=== PATIENT | male | born 1950 | race American Indian/Alaskan Native ===

== ENCOUNTER 2020-03-04 20:54 | Inpatient (IN) | payer OTHER, SELFPAY ==
[2020-03-04] MEDS ORDERED: SODIUM CHLORIDE 0.9% 500 ML 500 ML IV ONE (21:21)
[2020-03-04 22:00] LABS: Basophils % (Auto) 0.1 % (0.0-1.8); Eosinophils % (Auto) 0.2 % (0.0-4.3); Hematocrit 30.4 % (35.5-45.6); Hemoglobin 9.9 gm/dl (11.8-15.2); Lymphocytes # (Auto) 1.4 K/mm3 (1.2-5.4); Lymphocytes % (Auto) 18.6 % (13.4-35.0); Mean Corpuscular HGB Conc 33 % (32-34); Mean Corpuscular Volume 88 fl (84-94); Monocytes # (Auto) 0.3 K/mm3 (0.0-0.8); Monocytes % (Auto) 3.4 % (0.0-7.3); Platelet Count 342 K/mm3 (140-440); Red Blood Count 3.45 M/mm3 (3.65-5.03); Red Cell Distribution Width 16.8 % (13.2-15.2)
[2020-03-04 22:12] LABS: Alanine Aminotransferase 107 units/L (7-56); Albumin 2.1 g/dL (3.9-5); BUN/Creatinine Ratio 64; Blood Urea Nitrogen 51 mg/dL (9-20); Calcium 8.9 mg/dL (8.4-10.2); Hemolysis Index 4
[2020-03-04] MEDS ORDERED: SODIUM CHLORIDE 0.9% 1000 ML 1,000 ML IV ONE (22:18)
--- NOTE | 2020-03-04 22:23 | XRay Report ---
CHEST 1 VIEW 9:50 PM INDICATION / CLINICAL INFORMATION: Hypoxia and low O2 sats. COVID-19 positive. COMPARISON: None available. FINDINGS: SUPPORT DEVICES: None. HEART / MEDIASTINUM: The heart size and pulmonary vasculature are normal. LUNGS / PLEURA: There is mild patchy parenchymal disease in the left mid to lower lung. The lungs are hyperinflated. No pleural effusion. No pneumothorax. ADDITIONAL FINDINGS: The patient's left arm overlies the mid-upper chest. IMPRESSION: 1. Mild patchy parenchymal disease in the left lower lung is likely related to pneumonia. 2. Emphysema. Signer Name: Choco Brink MD Signed: 03/04/2020 10:18 PM Workstation Name: [id number]
[2020-03-04 22:27] LABS: C-Reactive Protein 28.2 mg/dL (0.00-1.30)
[2020-03-04] MEDS: cefTRIAXone/NS 2 GM/100 ML 2 GM/100 ML BAG IV SCH (22:31)
[2020-03-04] MEDS: AZITHROMYCIN 500 MG in SODIUM CHLORIDE 0.9% 250ML 250 ML IV SCH (22:31)
--- NOTE | 2020-03-04 22:32 | Emergency Department Report ---
- General Chief Complaint: Dyspnea/Respdistress Stated Complaint: COVID + LOW O2 Time Seen by Provider: 03/04/20 20:56 Source: EMS Mode of arrival: Stretcher Limitations: Physical Limitation - History of Present Illness Initial Comments: Patient is a 69-year-old F [place]itanian male with past medical history of CVA who is bedbound who is coming in for respiratory distress hypoxia. Patient had a O2 sat of 84% and was placed on nonrebreather. Patient is unable to give any significant history. Patient tested positive for COVID-19. Is unknown at this time when he tested positive. Report shows that his O2 saturation was 84% on room air prior to his arrival. - Related Data Allergies Allergy/AdvReac Type Severity Reaction Status Date / Time No Known Allergies Allergy Verified 03/04/20 22:08 ED Review of Systems ROS: Stated complaint: COVID + LOW O2 Other details as noted in HPI Comment: Unobtainable due to pts medical conditions ED Past Medical Hx - Past Medical History Previous Medical History?: Yes Hx CVA: Yes Additional medical history: NAZIA - Surgical History Additional Surgical History: NAZIA - Social History Smoking Status: Unknown if ever smoked ED Physical Exam - General Limitations: Altered Mental Status, Physical Limitation General appearance: alert - Head Head exam: Present: atraumatic, normocephalic - Eye Eye exam: Present: normal appearance - ENT ENT exam: Present: mucous membranes dry - Neck Neck exam: Present: normal inspection - Respiratory Respiratory exam: Present: respiratory distress (tachypnea), rhonchi. Absent: wheezes, rales - Cardiovascular Cardiovascular Exam: Present: regular rate, normal rhythm, normal heart sounds. Absent: systolic murmur, diastolic murmur, rubs, gallop - GI/Abdominal GI/Abdominal exam: Present: soft, normal bowel sounds. Absent: distended, tenderness, guarding, rebound - Rectal Rectal exam: Present: deferred - Extremities Exam Extremities exam: Present: normal inspection - Back Exam Back exam: Present: normal inspection - Neurological Exam Neurological exam: Present: altered, other (contracted secondary to CVA) - Psychiatric Psychiatric exam: Present: normal affect, normal mood - Skin Skin exam: Present: warm, dry, intact, normal color. Absent: rash ED Course Vital Signs 03/04/20 03/04/20 21:00 21:20 Temperature 99.5 F Pulse Rate 103 H Respiratory 22 Rate Blood Pressure 118/72 O2 Sat by Pulse 100 100 Oximetry ED Medical Decision Making - Lab Data Result diagrams: 03/04/20 21:37 03/04/20 21:37 Lab Results 03/04/20 03/04/20 03/04/20 Range/Units 21:37 21:37 21:37 WBC 7.4 (4.5-11.0) K/mm3 RBC 3.45 L (3.65-5.03) M/mm3 Hgb 9.9 L (11.8-15.2) gm/dl Hct 30.4 L (35.5-45.6) % MCV 88 (84-94) fl MCH 29 (28-32) pg MCHC 33 (32-34) % RDW 16.8 H (13.2-15.2) % Plt Count 342 (140-440) K/mm3 Lymph % (Auto) 18.6 (13.4-35.0) % Foster % (Auto) 3.4 (0.0-7.3) % Eos % (Auto) 0.2 (0.0-4.3) % Baso % (Auto) 0.1 (0.0-1.8) % Lymph # (Auto) 1.4 (1.2-5.4) K/mm3 Foster # (Auto) 0.3 (0.0-0.8) K/mm3 Eos # (Auto) 0.0 (0.0-0.4) K/mm3 Baso # (Auto) 0.0 (0.0-0.1) K/mm3 Seg Neutrophils % 77.7 H (40.0-70.0) % Seg Neutrophils # 5.7 (1.8-7.7) K/mm3 D-Dimer (0-234) ng/mlDDU Sodium 146 H (137-145) mmol/L Potassium 5.1 H (3.6-5.0) mmol/L Chloride 103.5 (98-107) mmol/L Carbon Dioxide 27 (22-30) mmol/L Anion Gap 21 mmol/L BUN 51 H (9-20) mg/dL Creatinine 0.8 (0.8-1.3) mg/dL Estimated GFR > 60 ml/min BUN/Creatinine Ratio 64 % Glucose 70 L (75-100) mg/dL Lactic Acid 5.20 H* (0.7-2.0) mmol/L Calcium 8.9 (8.4-10.2) mg/dL Total Bilirubin 0.30 (0.1-1.2) mg/dL AST 168 H (5-40) units/L ALT 107 H (7-56) units/L Alkaline Phosphatase 83 (35-129) units/L Lactate Dehydrogenase (91-180) units/L C-Reactive Protein (0.00-1.30) mg/dL Total Protein 7.8 (6.3-8.2) g/dL Albumin 2.1 L (3.9-5) g/dL Albumin/Globulin Ratio 0.4 % 03/04/20 03/04/20 Range/Units 21:37 21:37 WBC (4.5-11.0) K/mm3 RBC (3.65-5.03) M/mm3 Hgb (11.8-15.2) gm/dl Hct (35.5-45.6) % MCV (84-94) fl MCH (28-32) pg MCHC (32-34) % RDW (13.2-15.2) % Plt Count (140-440) K/mm3 Lymph % (Auto) (13.4-35.0) % Foster % (Auto) (0.0-7.3) % Eos % (Auto) (0.0-4.3) % Baso % (Auto) (0.0-1.8) % Lymph # (Auto) (1.2-5.4) K/mm3 Foster # (Auto) (0.0-0.8) K/mm3 Eos # (Auto) (0.0-0.4) K/mm3 Baso # (Auto) (0.0-0.1) K/mm3 Seg Neutrophils % (40.0-70.0) % Seg Neutrophils # (1.8-7.7) K/mm3 D-Dimer 1139.13 H (0-234) ng/mlDDU Sodium (137-145) mmol/L Potassium (3.6-5.0) mmol/L Chloride (98-107) mmol/L Carbon Dioxide (22-30) mmol/L Anion Gap mmol/L BUN (9-20) mg/dL Creatinine (0.8-1.3) mg/dL Estimated GFR ml/min BUN/Creatinine Ratio % Glucose 70 L (75-100) mg/dL Lactic Acid (0.7-2.0) mmol/L Calcium (8.4-10.2) mg/dL Total Bilirubin (0.1-1.2) mg/dL AST (5-40) units/L ALT (7-56) units/L Alkaline Phosphatase (35-129) units/L Lactate Dehydrogenase 990 H (91-180) units/L C-Reactive Protein 28.20 H (0.00-1.30) mg/dL Total Protein (6.3-8.2) g/dL Albumin (3.9-5) g/dL Albumin/Globulin Ratio % - Radiology Data CHEST 1 VIEW 9:50 PM INDICATION / CLINICAL INFORMATION: Hypoxia and low O2 sats. COVID-19 positive. COMPARISON: None available. FINDINGS: SUPPORT DEVICES: None. HEART / MEDIASTINUM: The heart size and pulmonary vasculature are normal. LUNGS / PLEURA: There is mild patchy parenchymal disease in the left mid to lower lung. The lungs are hyperinflated. No pleural effusion. No pneumothorax. ADDITIONAL FINDINGS: The patient's left arm overlies the mid-upper chest. IMPRESSION: 1. Mild patchy parenchymal disease in the left lower lung is likely related to pneumonia. 2. Emphysema. Signer Name: Choco Brink MD Signed: 03/04/2020 9:18 PM Workstation Name: [id number] - Medical Decision Making Patient is a 69-year-old gentleman who is presenting with worsening of his COVID-19 diagnosis. Chest x-ray shows he does have bilateral infiltrates consistent with COVID-19. He is LDH CRP above elevated significantly. Patient is tolerating nonrebreather well and is maintaining oxygen saturation in the upper 90s. Patient met sepsis protocol and was given antibiotics for pneumonia. Lactic acid was drawn. Lactic was greater than 4 and he was given 30 cc/kg bolus of normal saline. Blood pressure remained adequate. Patient to be admitted to the hospitalist service for further management. Critical care attestation.: If time is entered above; I have spent that time in minutes in the direct care of this critically ill patient, excluding procedure time. ED Disposition Clinical Impression: Hypoxia, COVID-19, Acute respiratory distress Bilateral pneumonia Qualifiers: Pneumonia type: due to unspecified organism Lung location: lower lobe of lung Qualified Code(s): J18.9 - Pneumonia, unspecified organism Disposition: DC-09 OP ADMIT IP TO THIS HOSP Is pt being admited?: Yes Does the pt Need Aspirin: No Condition: Stable Instructions: Bacterial Pneumonia (ED) Time of Disposition: 22:38
[2020-03-04] MEDS ORDERED: dexAMETHasone 20 MG/5 ML VIAL IV ONE (22:33)
[2020-03-04 23:42] LABS: Bacteria,Urine 1+ /HPF (Negative); Bilirubin,Urine NEG (Negative); Blood,Urine MOD (Negative); Color,Urine Amber (Yellow); Mucus,Urine FEW /HPF
[2020-03-04 23:43] LABS: RBC,Urine > 182.0 /HPF (0.0-6.0)
[2020-03-05] MEDS ORDERED: ACETAMINOPHEN 325 MG TAB PO PRN (00:16)
[2020-03-05] MEDS ORDERED: METOCLOPRAMIDE 10 MG/2 ML INJ IV PRN (00:16)
--- NOTE | 2020-03-05 00:25 | History and Physical Report ---
History of Present Illness Date of examination: 03/04/20 Date of admission: 03/04/20 23:38 Chief complaint: Respiratory distress History of present illness: 69-year-old male with past medical history of CVA who is bedbound brought into the emergency room today in respiratory distress. Patient is a resident of prison in [place]. Patient unable to give any history at this time. Most of the history was gotten from the ER staff. He was said to have tested positive for COVID-19 recently. Prior to arrival in the emergency room oxygen saturation was said to be about 84%. Work-up in the emergency room today chest x-ray shows : Mild patchy parenchymal disease in the left lower lung is likely related to pneumonia. Emphysema. Urinalysis also shows UTI. Patient commenced on empiric IV antibiotics and also placed on isolation precautions for COVID-19. Past History Past Medical History: stroke Past Surgical History: No surgical history Social history: no significant social history Family history: no significant family history Medications and Allergies Allergies Allergy/AdvReac Type Severity Reaction Status Date / Time No Known Allergies Allergy Verified 03/04/20 22:08 Home Medications Medication Instructions Recorded Confirmed Last Taken Type Acetaminophen [Tylenol] 650 mg FEEDTUBE Q4H PRN 03/05/20 03/05/20 Unknown History Apixaban [Eliquis] 5 mg FEEDTUBE BID 03/05/20 03/05/20 Unknown History Ascorbic Acid [Vitamin C] 500 mg FEEDTUBE DAILY 03/05/20 03/05/20 Unknown History Atorvastatin [Lipitor Tab] 40 mg FEEDTUBE QHS 03/05/20 03/05/20 Unknown History Calcium Carbonate [Calcium] 600 mg FEEDTUBE DAILY 03/05/20 03/05/20 Unknown History Collagenase (Nf) [Santyl (Nf)] 1 applic TP QHS 03/05/20 03/05/20 Unknown History Doxazosin [Cardura] 1 mg FEEDTUBE QHS 03/05/20 03/05/20 Unknown History Emollient Combination No.114 85 gm TP DAILY PRN 03/05/20 03/05/20 Unknown History [Eucerin Advanced Repair] Ferrous Sulfate [Ferrous Sulfate 220 mg FEEDTUBE DAILY 03/05/20 03/05/20 Unknown History 220 MG/5 ML] Lisinopril [Zestril] 5 mg FEEDTUBE DAILY 03/05/20 03/05/20 Unknown History Magnesium Oxide [Magnesium] 850 mg FEEDTUBE DAILY 03/05/20 03/05/20 Unknown History Metoprolol [Lopressor] 12.5 mg FEEDTUBE BID 03/05/20 03/05/20 Unknown History Mupirocin [Bactroban 2%] 1 applic TP QHS 03/05/20 03/05/20 Unknown History Omeprazole 20 mg FEEDTUBE DAILY 03/05/20 03/05/20 Unknown History traMADoL [Ultram] 50 mg FEEDTUBE Q6HR PRN 03/05/20 03/05/20 Unknown History Active Meds: Active Medications Ceftriaxone Sodium (Rocephin/Ns 2 Gm/100 Ml) 2 gm in 100 mls @ 200 mls/hr IV Q2 4H TANNER; Protocol Last Admin: 03/04/20 22:31 Dose: 200 mls/hr Documented by: Azithromycin 500 mg/ Sodium (Chloride) 250 mls @ 250 mls/hr IV Q24H TANNER; Protocol Last Admin: 03/04/20 22:31 Dose: 250 mls/hr Documented by: Review of Systems ROS unobtainable: due to mental status Exam - Constitutional Vitals: Temp Pulse Resp BP Pulse Ox 99.5 F 109 H 16 117/72 100 03/04/20 21:00 03/04/20 23:00 03/04/20 23:00 03/04/20 23:00 03/04/20 22:00 General appearance: Present: no acute distress, cachectic, other (Contracted) - EENT Eyes: Present: PERRL, EOM intact. Absent: scleral icterus ENT: hearing intact, clear oral mucosa, dentition normal - Neck Neck: Present: supple, normal ROM - Respiratory Respiratory effort: normal Respiratory: bilateral: diminished - Cardiovascular Rhythm: regular Heart Sounds: Present: S1 & S2. Absent: gallop, systolic murmur, diastolic murmur, rub - Extremities Extremities: no ischemia, pulses intact, pulses symmetrical, No edema, abnormal (Contracted) Peripheral Pulses: within normal limits - Abdominal General gastrointestinal: Present: soft, non-tender, non-distended, normal bowel sounds, other (Peg tube in place). Absent: mass - Integumentary Integumentary: Present: clear, warm, dry - Musculoskeletal Musculoskeletal: other (Contracted) - Psychiatric Psychiatric: cooperative - Neurologic Neurologic: CNII-XII intact Results - Labs CBC & Chem 7: 03/04/20 21:37 03/04/20 21:37 Labs: Abnormal lab results 03/04/20 03/04/20 03/04/20 Range/Units 21:37 21:37 21:37 RBC 3.45 L (3.65-5.03) M/mm3 Hgb 9.9 L (11.8-15.2) gm/dl Hct 30.4 L (35.5-45.6) % RDW 16.8 H (13.2-15.2) % Seg Neutrophils % 77.7 H (40.0-70.0) % D-Dimer (0-234) ng/mlDDU Sodium 146 H (137-145) mmol/L Potassium 5.1 H (3.6-5.0) mmol/L BUN 51 H (9-20) mg/dL Glucose 70 L (75-100) mg/dL Lactic Acid 5.20 H* (0.7-2.0) mmol/L Ferritin (30.0-300.0) ng/mL AST 168 H (5-40) units/L ALT 107 H (7-56) units/L Lactate Dehydrogenase (91-180) units/L C-Reactive Protein (0.00-1.30) mg/dL Albumin 2.1 L (3.9-5) g/dL Urine pH (5.0-7.0) Urine WBC (Auto) (0.0-6.0) /HPF 03/04/20 03/04/20 03/04/20 Range/Units 21:37 21:37 21:37 RBC (3.65-5.03) M/mm3 Hgb (11.8-15.2) gm/dl Hct (35.5-45.6) % RDW (13.2-15.2) % Seg Neutrophils % (40.0-70.0) % D-Dimer 1139.13 H (0-234) ng/mlDDU Sodium (137-145) mmol/L Potassium (3.6-5.0) mmol/L BUN (9-20) mg/dL Glucose 70 L (75-100) mg/dL Lactic Acid (0.7-2.0) mmol/L Ferritin 2614.0 H (30.0-300.0) ng/mL AST (5-40) units/L ALT (7-56) units/L Lactate Dehydrogenase 990 H (91-180) units/L C-Reactive Protein 28.20 H (0.00-1.30) mg/dL Albumin (3.9-5) g/dL Urine pH (5.0-7.0) Urine WBC (Auto) (0.0-6.0) /HPF 03/04/20 Range/Units 23:10 RBC (3.65-5.03) M/mm3 Hgb (11.8-15.2) gm/dl Hct (35.5-45.6) % RDW (13.2-15.2) % Seg Neutrophils % (40.0-70.0) % D-Dimer (0-234) ng/mlDDU Sodium (137-145) mmol/L Potassium (3.6-5.0) mmol/L BUN (9-20) mg/dL Glucose (75-100) mg/dL Lactic Acid (0.7-2.0) mmol/L Ferritin (30.0-300.0) ng/mL AST (5-40) units/L ALT (7-56) units/L Lactate Dehydrogenase (91-180) units/L C-Reactive Protein (0.00-1.30) mg/dL Albumin (3.9-5) g/dL Urine pH 8.0 H (5.0-7.0) Urine WBC (Auto) 154.0 H (0.0-6.0) /HPF Assessment and Plan - Patient Problems (1) Bilateral pneumonia Current Visit: Yes Status: Acute Qualifiers: Pneumonia type: due to unspecified organism Lung location: lower lobe of lung Qualified Code(s): J18.9 - Pneumonia, unspecified organism Plan to address problem: Patient placed on empiric IV antibiotics. We will await culture results. (2) Acute respiratory distress Current Visit: Yes Status: Acute Plan to address problem: Possibly secondary to the pneumonia. (3) COVID-19 Current Visit: Yes Status: Acute Plan to address problem: Patient placed on isolation precautions. We will place consult to infectious disease for evaluation. (4) UTI (urinary tract infection) Current Visit: Yes Status: Acute Plan to address problem: We will continue patient on empiric IV antibiotics. (5) DVT prophylaxis Current Visit: Yes Status: Acute Plan to address problem: Patient placed on subcutaneous heparin. (6) Full code status Current Visit: Yes Status: Acute
[2020-03-05] MEDS: MORPHINE 2 MG/1 ML INJ IV PRN ×2 (02:51→22:30)
[2020-03-05] MEDS: HEPARIN 5,000 UNIT/1 ML VIAL SUB-Q SCH ×3 (06:18→22:03)
--- NOTE | 2020-03-05 13:28 | Event Note ---
Date: 03/05/20 68-year-old male admitted with shortness of breath. As per records, patient was diagnosed with COVID-19 Patient found to have saturation of 84% in the ER and was placed on oxygen. Chest x-ray performed showed pneumonia at the bases Patient admitted for further evaluation. Plan Continue oxygen supplementation Continue antibiotics Start dexamethasone 6 mg IV daily Check procalcitonin Trend inflammatory markers-CRP, LDH, D-dimer and ferritin ID consulted COVID-19 test reordered Has elevated d-dimer. CTA chest ordered to rule out PE. Check us doppler LE Respiratory assess and treat protocol Pulmonology to be consulted pending above
[2020-03-05] MEDS: SODIUM CHLORIDE 0.9% 1000 ML 1,000 ML IV SCH (15:07)
[2020-03-05] MEDS: dexAMETHasone 4 MG/ML VIAL IV SCH (15:10)
[2020-03-05] MEDS: AZITHROMYCIN 500 MG in SODIUM CHLORIDE 0.9% 250ML 250 ML IV SCH (22:02)
[2020-03-05] MEDS: cefTRIAXone/NS 2 GM/100 ML 2 GM/100 ML BAG IV SCH (22:07)
[2020-03-06] MEDS: HEPARIN 5,000 UNIT/1 ML VIAL SUB-Q SCH ×3 (06:18→21:40)
[2020-03-06 06:57] LABS: Hematocrit 27.6 % (35.5-45.6); Hemoglobin 8.9 gm/dl (11.8-15.2); Lymphocytes # (Auto) 0.8 K/mm3 (1.2-5.4); Lymphocytes % (Auto) 10.8 % (13.4-35.0); Mean Corpuscular HGB Conc 32 % (32-34); Mean Corpuscular Volume 88 fl (84-94); Monocytes # (Auto) 0.3 K/mm3 (0.0-0.8); Monocytes % (Auto) 3.9 % (0.0-7.3); Platelet Count 388 K/mm3 (140-440); Red Blood Count 3.13 M/mm3 (3.65-5.03); Red Cell Distribution Width 17.1 % (13.2-15.2)
[2020-03-06 07:06] LABS: INR 1.58 (0.87-1.13)
[2020-03-06 07:15] LABS: BUN/Creatinine Ratio 69; Blood Urea Nitrogen 62 mg/dL (9-20); Calcium 8.5 mg/dL (8.4-10.2); Hemolysis Index 0
--- NOTE | 2020-03-06 13:02 | Progress Note ---
Assessment and Plan Assessment and plan: (1) Bilateral pneumonia Current Visit: Yes Status: Acute Qualifiers: Pneumonia type: due to unspecified organism Lung location: lower lobe of lung Qualified Code(s): J18.9 - Pneumonia, unspecified organism Plan to address problem: Antibiotics Steroids ID evaluation (2) Acute respiratory distress Current Visit: Yes Status: Acute Plan to address problem: Continue oxygen supplementation as needed (3) COVID-19 Current Visit: Yes Status: Acute Plan to address problem: Antibiotics Dexamethasone ID evaluation Oxygen supplementation as needed (4) UTI (urinary tract infection) Current Visit: Yes Status: Acute Plan to address problem: Antibiotics (5)Hypernatremia Current Visit: Yes Status: Acute Plan to address problem: Hypotonic solution Trend BMP Start tube feeds (5) Elevated D-dimer Current Visit: Yes Status: Acute Plan to address problem: Ultrasound lower extremity Doppler pending CTPE not performed as patient cannot give consent and there is no family available VQ scan ordered (5) DVT prophylaxis Current Visit: Yes Status: Acute Plan to address problem: Patient placed on subcutaneous heparin. (6) Full code status Current Visit: Yes Status: Acute History Interval history: Patient seen and examined at bedside this morning Respiratory therapy evaluated patient. Patient noted to have no hypoxia Labs reviewed-shows hyponatremia. Tube feeds resumed Hypotonic solution started Hospitalist Physical - Constitutional Vitals: Temp Pulse Resp BP Pulse Ox 97.9 F 106 H 16 130/91 95 03/06/20 04:07 03/06/20 04:07 03/06/20 04:07 03/05/20 20:51 03/06/20 04:07 General appearance: Present: no acute distress, cachectic, other (Contracted) - Neck Neck: Present: supple - Respiratory Respiratory: bilateral: diminished - Cardiovascular Heart Sounds: Present: S1 & S2 - Extremities Extremities: No edema - Abdominal General gastrointestinal: soft, non-tender, non-distended, normal bowel sounds, other (PEG tube in place) - Neurologic Neurologic: other (Awake and alert in person) Results - Labs CBC & Chem 7: 03/06/20 05:21 03/06/20 05:21 Labs: Laboratory Last Values WBC 7.5 K/mm3 (4.5-11.0) 03/06/20 05:21 RBC 3.13 M/mm3 (3.65-5.03) L 03/06/20 05:21 Hgb 8.9 gm/dl (11.8-15.2) L 03/06/20 05:21 Hct 27.6 % (35.5-45.6) L 03/06/20 05:21 MCV 88 fl (84-94) 03/06/20 05:21 MCH 28 pg (28-32) 03/06/20 05:21 MCHC 32 % (32-34) 03/06/20 05:21 RDW 17.1 % (13.2-15.2) H 03/06/20 05:21 Plt Count 388 K/mm3 (140-440) 03/06/20 05:21 Lymph % (Auto) 10.8 % (13.4-35.0) L 03/06/20 05:21 [place] % (Auto) 3.9 % (0.0-7.3) 03/06/20 05:21 Eos % (Auto) 0.0 % (0.0-4.3) 03/06/20 05:21 Baso % (Auto) 0.0 % (0.0-1.8) 03/06/20 05:21 Lymph # (Auto) 0.8 K/mm3 (1.2-5.4) L 03/06/20 05:21 [place] # (Auto) 0.3 K/mm3 (0.0-0.8) 03/06/20 05:21 Eos # (Auto) 0.0 K/mm3 (0.0-0.4) 03/06/20 05:21 Baso # (Auto) 0.0 K/mm3 (0.0-0.1) 03/06/20 05:21 Seg Neutrophils % 85.3 % (40.0-70.0) H 03/06/20 05:21 Seg Neutrophils # 6.4 K/mm3 (1.8-7.7) 03/06/20 05:21 PT 18.9 Sec. (12.2-14.9) H 03/06/20 05:21 INR 1.58 (0.87-1.13) H 03/06/20 05:21 D-Dimer 903.38 ng/mlDDU (0-234) H 03/06/20 05:21 Sodium 153 mmol/L (137-145) H 03/06/20 05:21 Potassium 4.3 mmol/L (3.6-5.0) 03/06/20 05:21 Chloride 114.2 mmol/L (98-107) H 03/06/20 05:21 Carbon Dioxide 22 mmol/L (22-30) 03/06/20 05:21 Anion Gap 21 mmol/L 03/06/20 05:21 BUN 62 mg/dL (9-20) H 03/06/20 05:21 Creatinine 0.9 mg/dL (0.8-1.3) 03/06/20 05:21 Estimated GFR > 60 ml/min 03/06/20 05:21 BUN/Creatinine Ratio 69 % 03/06/20 05:21 Glucose 86 mg/dL (75-100) 03/06/20 05:21 Lactic Acid 0.90 mmol/L (0.7-2.0) 03/05/20 06:09 Calcium 8.5 mg/dL (8.4-10.2) 03/06/20 05:21 Ferritin 2437.0 ng/mL (30.0-300.0) H 03/06/20 05:21 Total Bilirubin 0.30 mg/dL (0.1-1.2) 03/04/20 21:37 AST 168 units/L (5-40) H 03/04/20 21:37 ALT 107 units/L (7-56) H 03/04/20 21:37 Alkaline Phosphatase 83 units/L (35-129) 03/04/20 21:37 Lactate Dehydrogenase 225 units/L (91-180) H 03/06/20 05:21 C-Reactive Protein 23.20 mg/dL (0.00-1.30) H 03/06/20 05:21 Total Protein 7.8 g/dL (6.3-8.2) 03/04/20 21:37 Albumin 2.1 g/dL (3.9-5) L 03/04/20 21:37 Albumin/Globulin Ratio 0.4 % 03/04/20 21:37 Procalcitonin 0.51 ng/mL (<0.15) 03/06/20 05:21 Urine Color Vicki (Yellow) 03/04/20 23:10 Urine Turbidity Slightly-cloudy (Clear) 03/04/20 23:10 Urine pH 8.0 (5.0-7.0) H 03/04/20 23:10 Ur Specific [place] 1.020 (1.003-1.030) 03/04/20 23:10 Urine Protein 100 mg/dl mg/dL (Negative) 03/04/20 23:10 Urine Glucose (UA) Neg mg/dL (Negative) 03/04/20 23:10 Urine Ketones Neg mg/dL (Negative) 03/04/20 23:10 Urine Blood Mod (Negative) 03/04/20 23:10 Urine Nitrite Neg (Negative) 03/04/20 23:10 Urine Bilirubin Neg (Negative) 03/04/20 23:10 Urine Urobilinogen 4.0 mg/dL (<2.0) 03/04/20 23:10 Ur Leukocyte Esterase Mod (Negative) 03/04/20 23:10 Urine WBC (Auto) 154.0 /HPF (0.0-6.0) H 03/04/20 23:10 Urine RBC (Auto) > 182.0 /HPF (0.0-6.0) 03/04/20 23:10 Urine Bacteria (Auto) 1+ /HPF (Negative) 03/04/20 23:10 Urine Mucus Few /HPF 03/04/20 23:10 Coronavirus (PCR) Positive (Negative) A 03/05/20 10:59 Microbiology: Microbiology 03/04/20 21:37 Peripheral/Venous Blood Culture - Preliminary NO GROWTH AFTER 24 HOURS 03/04/20 21:37 Peripheral/Venous Blood Culture - Preliminary NO GROWTH AFTER 24 HOURS Deutsch/IV: Voiding Method Indwelling Catheter IV Catheter Type [Right Peripheral IV Antecubital] Active Medications - Current Medications Current Medications: Generic Name Dose Route Start Last Admin Trade Name Freq PRN Reason Stop Dose Admin Acetaminophen 650 mg 03/05/20 00:16 Tylenol PO Q4H PRN Pain MILD(1-3)/Fever >100.5/IBARRA Dexamethasone 6 mg 03/05/20 13:00 03/05/20 15:10 Decadron IV 6 mg Q24H TANNER Administration Heparin Sodium (Porcine) 5,000 unit 03/05/20 06:00 03/06/20 06:18 Heparin SUB-Q 5,000 unit Q8HR TANNER Administration Ceftriaxone Sodium 2 gm in 100 mls @ 200 mls/hr 03/04/20 22:00 03/05/20 23:11 Rocephin/Ns 2 Gm/100 Ml IV Infused Q24H TANNER Infusion Protocol Azithromycin 500 mg/ Sodium 250 mls @ 250 mls/hr 03/04/20 22:00 03/05/20 23:12 Chloride IV Infused Q24H TANNER Infusion Protocol Sodium Chloride 1,000 mls @ 75 mls/hr 03/05/20 00:30 03/06/20 06:24 Nacl 0.9% 1000 Ml IV Infused DIRECT TANNER Infusion Dextrose 1,000 mls @ 75 mls/hr 03/06/20 10:00 D5w IV 03/08/20 00:00 DIRECT TANNER Metoclopramide HCl 10 mg 03/05/20 00:16 Reglan IV Q6H PRN Nausea And Vomiting Morphine Sulfate 2 mg 03/05/20 00:16 03/05/20 22:30 Morphine IV 2 mg Q4H PRN Administration Pain, Moderate (4-6) Sodium Chloride 10 ml 03/05/20 10:00 03/05/20 22:04 Sodium Chloride Flush Syringe 10 Ml IV 10 ml BID TANNER Administration Sodium Chloride 10 ml 03/05/20 00:16 Sodium Chloride Flush Syringe 10 Ml IV PRN PRN LINE FLUSH Nutrition/Malnutrition Assess - Dietary Evaluation Nutrition/Malnutrition Findings: Nutrition Notes Start: 03/05/20 09:48 Freq: Status: Active Protocol: Document 03/05/20 09:48 LM (Rec: 03/05/20 09:58 LM [id number]) Nutrition Notes Need for Assessment generated from: [email or web address],MST Initial or Follow up Assessment Current Diagnosis Decubitus(Pressure Ulcer) Other Pertinent Diagnosis COVID-19, pneu, UTI, bedbound multiple PUs, hx CVA Current Diet NPO Labs/Tests 03/04 Na 146 K 5.1 BUN 51 BG 70 Pertinent Medications Reviewed Height 5 ft 8 in Weight 43.091 kg [place] Body Weight (kg) 70.00 BMI 14.4 Weight Status Emaciated Subjective/Other Information RN screen for MST, difficulty chewing, skin risk. Pt has multiple PUs and chacetic per chart and wound photos. Burn Absent Trauma Absent Current % PO Negligible Minimum of two criteria Yes Body Fat Depletion Mild depletion (non-severe) Muscle Mass Mild Depletion (non-severe) Reduced Healthcare Consultant Strength Measurably Reduced (severe) #2 Nutrition Diagnosis Increased nutrient needs ( specify in comment below) Comments: Protein Etiology Wound healing, malnutrition As Evidenced by Signs and Symptoms Pt with multiple PUs #1 Nutrition Diagnosis Malnutrition Etiology Chronic illness, bedbound As Evidenced by Signs and Symptoms pt with muscle and fat wasting , weak clean up worker strength Is patient on ventilator? No Is Patient Ambulatory and/or Out of Bed No REE-([place]-St. or-confined to bed) 1410.600 Kcal/Kg value to use for calculation 41 Approximate Energy Requirements Using 1767 kcal/Kg Calculation Used for Recommendations Kcal/kg Additional Notes Protein: 54-65g (1.25-1.5g/kg) Fluid: 1ml/kcal Nutrition Intervention Change Diet Order: Diet advancement per MD when medically feasible Goal #1 diet advancement Anticipated Discharge Needs: unable to determine at this time Follow-Up By: 03/07/20 Additional Comments F/U for diet advancement
[2020-03-06] MEDS ORDERED: LIPASE 10,500/PROTEASE 25,000/AMYLASE 43,750 (UNITS) DR CAP FEEDTUBE PRN (13:18)
[2020-03-06] MEDS ORDERED: SIMPLE SYRUP 15 ML FEEDTUBE PRN ×2 (13:18)
[2020-03-06] MEDS ORDERED: SODIUM BICARBONATE 325 MG TAB FEEDTUBE PRN (13:18)
[2020-03-06] MEDS ORDERED: ALBUTEROL 2.5 MG/3 ML NEBU IH PRN (13:33)
[2020-03-06] MEDS: DEXTROSE 5% IN WATER 1,000 ML IV SCH (13:56)
[2020-03-06] MEDS: dexAMETHasone 4 MG/ML VIAL IV SCH (13:57)
[2020-03-06] MEDS ORDERED: REMDESIVIR 100 MG VIAL IV ONE (21:00)
[2020-03-06] MEDS ORDERED: REMDESIVIR 200 MG in SODIUM CHLORIDE 0.9% 250ML 250 ML IV ONE (21:00)
[2020-03-06] MEDS: SODIUM CHLORIDE 0.9% 50 ML IVPB IV SCH (21:38)
[2020-03-06] MEDS: cefTRIAXone/NS 2 GM/100 ML 2 GM/100 ML BAG IV SCH (21:39)
[2020-03-06] MEDS: AZITHROMYCIN 500 MG in SODIUM CHLORIDE 0.9% 250ML 250 ML IV SCH (21:39)
[2020-03-06] MEDS ORDERED: DEXTROSE 50% IN WATER (25GM) 50 ML SYRINGE IV PRN (22:08)
[2020-03-07] MEDS: MORPHINE 2 MG/1 ML INJ IV PRN (04:41)
[2020-03-07] MEDS: DEXTROSE 5% IN WATER 1,000 ML IV SCH (04:50)
[2020-03-07] MEDS: HEPARIN 5,000 UNIT/1 ML VIAL SUB-Q SCH ×3 (04:59→23:19)
[2020-03-07 06:35] LABS: Hematocrit 26.9 % (35.5-45.6); Hemoglobin 8.9 gm/dl (11.8-15.2); Lymphocytes # (Auto) 0.5 K/mm3 (1.2-5.4); Mean Corpuscular HGB Conc 33 % (32-34); Mean Corpuscular Volume 88 fl (84-94); Monocytes # (Auto) 0.3 K/mm3 (0.0-0.8); Monocytes % (Auto) 5.3 % (0.0-7.3); Platelet Count 371 K/mm3 (140-440); Red Blood Count 3.07 M/mm3 (3.65-5.03); Red Cell Distribution Width 16.9 % (13.2-15.2)
[2020-03-07 07:14] LABS: Alanine Aminotransferase 64 units/L (7-56); Albumin 1.8 g/dL (3.9-5); Blood Urea Nitrogen 52 mg/dL (9-20); Calcium 8.4 mg/dL (8.4-10.2); Hemolysis Index 3
[2020-03-07 07:23] LABS: BUN/Creatinine Ratio 87
--- NOTE | 2020-03-07 13:57 | Vascular Lab Report ---
VL venous duplex LE BILAT INDICATION / CLINICAL INFORMATION: DVT. COMPARISON: None available. FINDINGS: No evidence of deep vein thrombosis in either leg. Signer Name: Greg Colbert MD Signed: 03/07/2020 1:53 PM Workstation Name: [id number]
--- NOTE | 2020-03-07 14:41 | Nuclear Medicine Report ---
NM perfusion only lung scan INDICATION / CLINICAL INFORMATION: Rule out PE. TECHNIQUE: Dose / Agent / Route: 5 mCi technetium MAA, IV. COMPARISON: Chest radiograph done 3 days ago FINDINGS: Perfusion images show inhomogeneous uptake throughout both lungs, consistent with emphysema demonstra amira on chest radiograph. There are no large segmental defects. IMPRESSION: 1. This exam must be considered indeterminate for the presence of pulmonary embolus. Signer Name: Greg Colbert MD Signed: 03/07/2020 2:37 PM Workstation Name: [id number]
--- NOTE | 2020-03-07 15:51 | Consultation ---
History of Present Illness - Reason for Consult Consult date: 03/07/20 COVID r/o Requesting physician: HENNY WU - History of Present Illness 69 years old male with history of CVA, bedbound, resident of residential, admitted on secondary to shortness of breath and hypoxia at the residential. O2 sats were found down to 84%. Patient tested positive for COVID-19 at the residential recently. Patient is not the best historian unable to provide history. On arrival, temperature 99.5, HR 113, BP 118/72. O2 sat down to 90%. Initial WBC 7.4. Hemoglobin 9.9. D-dimer 1139. Ferritin 2614. AST 168. ALT 107. Procalcitonin 0.4. Lactate 5.2. UA with 184 WBCs and moderate leukocyte esterase. Venous ultrasound no DVT. Chest x-ray shows patchy airspace disease and emphysema. VQ scan indeterminate. Patient is currently on room air. Review of Systems: reviewed ED and H&P notes. Limited due to PPE conservation strategy Past History Past Medical History: stroke Past Surgical History: No surgical history Social history: no significant social history Family history: no significant family history Medications and Allergies Allergies Allergy/AdvReac Type Severity Reaction Status Date / Time No Known Allergies Allergy Verified 03/04/20 22:08 Home Medications Medication Instructions Recorded Confirmed Last Taken Type Acetaminophen [Tylenol] 650 mg FEEDTUBE Q4H PRN 03/05/20 03/05/20 Unknown History Apixaban [Eliquis] 5 mg FEEDTUBE BID 03/05/20 03/05/20 Unknown History Ascorbic Acid [Vitamin C] 500 mg FEEDTUBE DAILY 03/05/20 03/05/20 Unknown History Atorvastatin [Lipitor Tab] 40 mg FEEDTUBE QHS 03/05/20 03/05/20 Unknown History Calcium Carbonate [Calcium] 600 mg FEEDTUBE DAILY 03/05/20 03/05/20 Unknown History Collagenase (Nf) [Santyl (Nf)] 1 applic TP QHS 03/05/20 03/05/20 Unknown History Doxazosin [Cardura] 1 mg FEEDTUBE QHS 03/05/20 03/05/20 Unknown History Emollient Combination No.114 85 gm TP DAILY PRN 03/05/20 03/05/20 Unknown History [Eucerin Advanced Repair] Ferrous Sulfate [Ferrous Sulfate 220 mg FEEDTUBE DAILY 03/05/20 03/05/20 Unknown History 220 MG/5 ML] Lisinopril [Zestril] 5 mg FEEDTUBE DAILY 03/05/20 03/05/20 Unknown History Magnesium Oxide [Magnesium] 850 mg FEEDTUBE DAILY 03/05/20 03/05/20 Unknown History Metoprolol [Lopressor] 12.5 mg FEEDTUBE BID 03/05/20 03/05/20 Unknown History Mupirocin [Bactroban 2%] 1 applic TP QHS 03/05/20 03/05/20 Unknown History Omeprazole 20 mg FEEDTUBE DAILY 03/05/20 03/05/20 Unknown History traMADoL [Ultram] 50 mg FEEDTUBE Q6HR PRN 03/05/20 03/05/20 Unknown History Active Meds: Active Medications Acetaminophen (Tylenol) 650 mg PO Q4H PRN PRN Reason: Pain MILD(1-3)/Fever >100.5/IBARRA Albuterol (Proventil) 2.5 mg IH Q4HRT PRN PRN Reason: Shortness Of Breath Lipase/Protease/Amylase (Pancreaze Dr 10,500 Unit) 1 each FEEDTUBE PRN PRN PRN Reason: For Clogged Feeding Tube Dexamethasone (Decadron) 6 mg IV Q24HR TANNER Stop: 03/13/20 10:01 Dextrose (D50w (25gm) Syringe) 50 ml IV Q30MIN PRN; Protocol PRN Reason: Hypoglycemia Heparin Sodium (Porcine) (Heparin) 5,000 unit SUB-Q Q8HR TANNER Last Admin: 03/07/20 04:59 Dose: 5,000 unit Documented by: Ceftriaxone Sodium (Rocephin/Ns 2 Gm/100 Ml) 2 gm in 100 mls @ 200 mls/hr IV Q24H TANNER; Protocol Last Admin: 03/06/20 21:39 Dose: 200 mls/hr Documented by: Azithromycin 500 mg/ Sodium (Chloride) 250 mls @ 250 mls/hr IV Q24H TANNER; Protocol Stop: 03/08/20 22:59 Last Admin: 03/06/20 21:39 Dose: 250 mls/hr Documented by: Sodium Chloride (Nacl 0.9% 1000 Ml) 1,000 mls @ 75 mls/hr IV DIRECT TANNER Last Infusion: 03/06/20 06:24 Dose: Infused Documented by: Dextrose (D5w) 1,000 mls @ 75 mls/hr IV DIRECT [facility] Stop: 03/08/20 00:00 Last Admin: 03/07/20 04:50 Dose: 75 mls/hr Documented by: REMDESIVIR 100 mg/ Sodium (Chloride) 250 mls @ 500 mls/hr IV Q24HR@2100 [facility] Stop: 03/10/20 21:29 Metoclopramide HCl (Reglan) 10 mg IV Q6H PRN PRN Reason: Nausea And Vomiting Morphine Sulfate (Morphine) 2 mg IV Q4H PRN PRN Reason: Pain, Moderate (4-6) Last Admin: 03/07/20 04:41 Dose: 2 mg Documented by: Simple Syrup (Simple Syrup) 15 ml FEEDTUBE PRN PRN PRN Reason: Hypoglycemia Simple Syrup (Simple Syrup) 30 ml FEEDTUBE PRN PRN PRN Reason: Hypoglycemia Sodium Bicarbonate (Sodium Bicarbonate) 325 mg FEEDTUBE PRN PRN PRN Reason: For Clogged Feeding Tube Sodium Chloride (Sodium Chloride Flush Syringe 10 Ml) 10 ml IV BID [facility] Last Admin: 03/07/20 10:35 Dose: 10 ml Documented by: Sodium Chloride (Sodium Chloride Flush Syringe 10 Ml) 10 ml IV PRN PRN PRN Reason: LINE FLUSH Sodium Chloride (Nacl 0.9%) 50 ml IV Q24HR@2100 [facility] Stop: 03/10/20 21:01 Last Admin: 03/06/20 21:38 Dose: 50 ml Documented by: Physical Examination - Physical Exam Narrative exam: Physical Exam: reviewed ED and hospitalist notes, limited due to conservation of PPE and decrease risk of transmission. General appearance: limited due to conservation of PPE Eyes: limited due to conservation of PPE HENT: Atraumatic; limited due to conservation of PPE Lungs: limited due to conservation of PPE CV: limited due to conservation of PPE Abdomen: limited due to conservation of PPE Extremities: limited due to conservation of PPE Skin: limited due to conservation of PPE Psych: limited due to conservation of PPE Neuro: limited due to conservation of PPE - Constitutional Vitals: Vital Signs Temp Pulse Resp BP Pulse Ox 97.8 F 79 16 137/93 95 03/07/20 04:25 03/07/20 04:25 03/07/20 04:25 03/07/20 04:25 03/07/20 04:25 Temperature -Last 24 Hours Temperature 97.8 F Temperature 97.8 F Temperature 97.5 F Results - Labs CBC & Chem 7: 03/07/20 05:02 03/07/20 05:02 Labs: Abnormal lab results 03/06/20 03/07/20 03/07/20 Range/Units 22:32 05:02 05:02 RBC 3.07 L (3.65-5.03) M/mm3 Hgb 8.9 L (11.8-15.2) gm/dl Hct 26.9 L (35.5-45.6) % RDW 16.9 H (13.2-15.2) % Lymph % (Auto) 10.0 L (13.4-35.0) % Lymph # (Auto) 0.5 L (1.2-5.4) K/mm3 Seg Neutrophils % 84.7 H (40.0-70.0) % Sodium 150 H (137-145) mmol/L Chloride 114.5 H (98-107) mmol/L BUN 52 H (9-20) mg/dL Creatinine 0.6 L (0.8-1.3) mg/dL Glucose 147 H (75-100) mg/dL POC Glucose 108 H (70-105) mg/dL AST 95 H (5-40) units/L ALT 64 H (7-56) units/L Albumin 1.8 L (3.9-5) g/dL 03/07/20 Range/Units 05:27 RBC (3.65-5.03) M/mm3 Hgb (11.8-15.2) gm/dl Hct (35.5-45.6) % RDW (13.2-15.2) % Lymph % (Auto) (13.4-35.0) % Lymph # (Auto) (1.2-5.4) K/mm3 Seg Neutrophils % (40.0-70.0) % Sodium (137-145) mmol/L Chloride (98-107) mmol/L BUN (9-20) mg/dL Creatinine (0.8-1.3) mg/dL Glucose (75-100) mg/dL POC Glucose 116 H (70-105) mg/dL AST (5-40) units/L ALT (7-56) units/L Albumin (3.9-5) g/dL Assessment and Plan Cultures: Blood culture 03/04/2020 no growth today SARS CoV2 PCR positive Assessment: 69 years old male with history of CVA, bedbound, resident of residential, admitted on secondary to shortness of breath and hypoxia at the residential, recent COVID-19 test positive: #Severe sepsis: Present on admission with low-grade fever, tachycardia, hypoxia, elevated LFTs, elevated lactate, likely due to bilateral pneumonia +/-UTI. #Severe COVID pneumonia: Chest x-ray with bilateral airspace disease. Elevated markers. D-dimer 1139. Venous ultrasound without any DVT. VQ scan indeterminate. #Acute hypoxia: Currently on room air. #Elevated LFTs: from COVID #Status post PEG Recommendations: -Continue dexamethasone 6 mg IV/PO daily for 10 days -Continue remdesivir total 5 days -Monitor inflammatory markers - ferritin, Ddimer, CRP, LDH -Continue ceftriaxone for 5 days and azithromycin for 3 days -Monitor liver function test on Remdesivir -Continue anticoagulation per System Protocol -Prone positioning as possible -Follow-up urine culture All laboratory, cultures and imaging were reviewed. Will follow Clara Enrique MD Infectious Diseases [employer] [facility] M [phone] O [phone]
[2020-03-07] MEDS: dexAMETHasone 4 MG/ML VIAL IV SCH ×2 (15:52→18:28)
--- NOTE | 2020-03-07 16:00 | Progress Note ---
Assessment and Plan Assessment and plan: (1) Bilateral pneumonia Current Visit: Yes Status: Acute Qualifiers: Pneumonia type: due to unspecified organism Lung location: lower lobe of lung Qualified Code(s): J18.9 - Pneumonia, unspecified organism Plan to address problem: Antibiotics Steroids ID evaluation (2) Acute respiratory distress Current Visit: Yes Status: Acute Plan to address problem: Continue oxygen supplementation as needed (3) COVID-19 Current Visit: Yes Status: Acute Plan to address problem: Antibiotics Dexamethasone ID evaluation Oxygen supplementation as needed (4) UTI (urinary tract infection) Current Visit: Yes Status: Acute Plan to address problem: Antibiotics (5)Hypernatremia Current Visit: Yes Status: Acute Plan to address problem: Hypotonic solution Trend BMP Start tube feeds (5) Elevated D-dimer Current Visit: Yes Status: Acute Plan to address problem: Ultrasound lower extremity Doppler pending CTPE not performed as patient cannot give consent and there is no family available VQ scan ordered (5) DVT prophylaxis Current Visit: Yes Status: Acute Plan to address problem: Patient placed on subcutaneous heparin. (6) Full code status Current Visit: Yes Status: Acute History Interval history: Patient seen and examined at bedside this morning ID consulted. Started on tube feeds Hospitalist Physical - Constitutional Vitals: Temp Pulse Resp BP Pulse Ox 97.8 F 79 16 137/93 95 03/07/20 04:25 03/07/20 04:25 03/07/20 04:25 03/07/20 04:25 03/07/20 04:25 General appearance: Present: no acute distress, cachectic, other (Contracted) - EENT Eyes: Present: PERRL - Neck Neck: Present: supple - Respiratory Respiratory: bilateral: CTA - Cardiovascular Heart Sounds: Present: S1 & S2 - Extremities Extremities: No edema - Abdominal General gastrointestinal: soft, non-tender, non-distended, normal bowel sounds - Neurologic Neurologic: CNII-XII intact - Additional findings Additional findings: Has multiple skin sores. Results - Labs CBC & Chem 7: 03/07/20 05:02 03/07/20 05:02 Labs: Laboratory Last Values WBC 5.0 K/mm3 (4.5-11.0) 03/07/20 05:02 RBC 3.07 M/mm3 (3.65-5.03) L 03/07/20 05:02 Hgb 8.9 gm/dl (11.8-15.2) L 03/07/20 05:02 Hct 26.9 % (35.5-45.6) L 03/07/20 05:02 MCV 88 fl (84-94) 03/07/20 05:02 MCH 29 pg (28-32) 03/07/20 05:02 MCHC 33 % (32-34) 03/07/20 05:02 RDW 16.9 % (13.2-15.2) H 03/07/20 05:02 Plt Count 371 K/mm3 (140-440) 03/07/20 05:02 Lymph % (Auto) 10.0 % (13.4-35.0) L 03/07/20 05:02 [place] % (Auto) 5.3 % (0.0-7.3) 03/07/20 05:02 Eos % (Auto) 0.0 % (0.0-4.3) 03/07/20 05:02 Baso % (Auto) 0.0 % (0.0-1.8) 03/07/20 05:02 Lymph # (Auto) 0.5 K/mm3 (1.2-5.4) L 03/07/20 05:02 [place] # (Auto) 0.3 K/mm3 (0.0-0.8) 03/07/20 05:02 Eos # (Auto) 0.0 K/mm3 (0.0-0.4) 03/07/20 05:02 Baso # (Auto) 0.0 K/mm3 (0.0-0.1) 03/07/20 05:02 Seg Neutrophils % 84.7 % (40.0-70.0) H 03/07/20 05:02 Seg Neutrophils # 4.2 K/mm3 (1.8-7.7) 03/07/20 05:02 PT 18.9 Sec. (12.2-14.9) H 03/06/20 05:21 INR 1.58 (0.87-1.13) H 03/06/20 05:21 D-Dimer 903.38 ng/mlDDU (0-234) H 03/06/20 05:21 Sodium 150 mmol/L (137-145) H 03/07/20 05:02 Potassium 3.7 mmol/L (3.6-5.0) 03/07/20 05:02 Chloride 114.5 mmol/L (98-107) H 03/07/20 05:02 Carbon Dioxide 25 mmol/L (22-30) 03/07/20 05:02 Anion Gap 14 mmol/L 03/07/20 05:02 BUN 52 mg/dL (9-20) H 03/07/20 05:02 Creatinine 0.6 mg/dL (0.8-1.3) L 03/07/20 05:02 Estimated GFR > 60 ml/min 03/07/20 05:02 BUN/Creatinine Ratio 87 % 03/07/20 05:02 Glucose 147 mg/dL (75-100) H 03/07/20 05:02 POC Glucose 103 mg/dL (70-105) 03/07/20 11:35 Lactic Acid 0.90 mmol/L (0.7-2.0) 03/05/20 06:09 Calcium 8.4 mg/dL (8.4-10.2) 03/07/20 05:02 Ferritin 2437.0 ng/mL (30.0-300.0) H 03/06/20 05:21 Total Bilirubin 0.20 mg/dL (0.1-1.2) 03/07/20 05:02 AST 95 units/L (5-40) H 03/07/20 05:02 ALT 64 units/L (7-56) H 03/07/20 05:02 Alkaline Phosphatase 68 units/L (35-129) 03/07/20 05:02 Lactate Dehydrogenase 225 units/L (91-180) H 03/06/20 05:21 C-Reactive Protein 23.20 mg/dL (0.00-1.30) H 03/06/20 05:21 Total Protein 6.7 g/dL (6.3-8.2) 03/07/20 05:02 Albumin 1.8 g/dL (3.9-5) L 03/07/20 05:02 Albumin/Globulin Ratio 0.4 % 03/07/20 05:02 Procalcitonin 0.51 ng/mL (<0.15) 03/06/20 05:21 Urine Color Vicki (Yellow) 03/04/20 23:10 Urine Turbidity Slightly-cloudy (Clear) 03/04/20 23:10 Urine pH 8.0 (5.0-7.0) H 03/04/20 23:10 Ur Specific [place] 1.020 (1.003-1.030) 03/04/20 23:10 Urine Protein 100 mg/dl mg/dL (Negative) 03/04/20 23:10 Urine Glucose (UA) Neg mg/dL (Negative) 03/04/20 23:10 Urine Ketones Neg mg/dL (Negative) 03/04/20 23:10 Urine Blood Mod (Negative) 03/04/20 23:10 Urine Nitrite Neg (Negative) 03/04/20 23:10 Urine Bilirubin Neg (Negative) 03/04/20 23:10 Urine Urobilinogen 4.0 mg/dL (<2.0) 03/04/20 23:10 Ur Leukocyte Esterase Mod (Negative) 03/04/20 23:10 Urine WBC (Auto) 154.0 /HPF (0.0-6.0) H 03/04/20 23:10 Urine RBC (Auto) > 182.0 /HPF (0.0-6.0) 03/04/20 23:10 Urine Bacteria (Auto) 1+ /HPF (Negative) 03/04/20 23:10 Urine Mucus Few /HPF 03/04/20 23:10 Coronavirus (PCR) Positive (Negative) A 03/05/20 10:59 Microbiology: Microbiology 03/04/20 21:37 Peripheral/Venous Blood Culture - Preliminary NO GROWTH AFTER 48 HOURS 03/04/20 21:37 Peripheral/Venous Blood Culture - Preliminary NO GROWTH AFTER 48 HOURS Deutsch/IV: Voiding Method Indwelling Catheter IV Catheter Type [Right Upper INT / Saline Lock arm] IV Catheter Type [Right Peripheral IV Antecubital] Active Medications - Current Medications Current Medications: Generic Name Dose Route Start Last Admin Trade Name Freq PRN Reason Stop Dose Admin Acetaminophen 650 mg 03/05/20 00:16 Tylenol PO Q4H PRN Pain MILD(1-3)/Fever >100.5/IBARRA Albuterol 2.5 mg 03/06/20 13:33 Proventil IH Q4HRT PRN Shortness Of Breath Lipase/Protease/Amylase 1 each 03/06/20 13:[address] 10,500 Unit FEEDTUBE PRN PRN For Clogged Feeding Tube Dexamethasone 6 mg 03/07/20 13:30 03/07/20 15:52 Decadron IV 03/13/20 10:01 6 mg Q24HR TANNER Administration Dextrose 50 ml 03/06/20 22:08 D50w (25gm) Syringe IV Q30MIN PRN Hypoglycemia Protocol Heparin Sodium (Porcine) 5,000 unit 03/05/20 06:00 03/07/20 15:53 Heparin SUB-Q 5,000 unit Q8HR TANENR Administration Ceftriaxone Sodium 2 gm in 100 mls @ 200 mls/hr 03/04/20 22:00 03/06/20 21:39 Rocephin/Ns 2 Gm/100 Ml IV 200 mls/hr Q24H TANNER Administration Protocol Azithromycin 500 mg/ Sodium 250 mls @ 250 mls/hr 03/04/20 22:00 03/06/20 2 1:39 Chloride IV 03/08/20 22:59 250 mls/hr Q24H TANNER Administration Protocol Sodium Chloride 1,000 mls @ 75 mls/hr 03/05/20 00:30 03/06/20 06:24 Nacl 0.9% 1000 Ml IV Infused DIRECT TANNER Infusion Dextrose 1,000 mls @ 75 mls/hr 03/06/20 10:00 03/07/20 04:50 D5w IV 03/08/20 00:00 75 mls/hr DIRECT TANNER Administration REMDESIVIR 100 mg/ Sodium 250 mls @ 500 mls/hr 03/07/20 21:00 Chloride IV 03/10/20 21:29 Q24HR@2100 TANNER Metoclopramide HCl 10 mg 03/05/20 00:16 Reglan IV Q6H PRN Nausea And Vomiting Morphine Sulfate 2 mg 03/05/20 00:16 03/07/20 04:41 Morphine IV 2 mg Q4H PRN Administration Pain, Moderate (4-6) Simple Syrup 15 ml 03/06/20 13:18 Simple Syrup FEEDTUBE PRN PRN Hypoglycemia Simple Syrup 30 ml 03/06/20 13:18 Simple Syrup FEEDTUBE PRN PRN Hypoglycemia Sodium Bicarbonate 325 mg 03/06/20 13:18 Sodium Bicarbonate FEEDTUBE PRN PRN For Clogged Feeding Tube Sodium Chloride 10 ml 03/05/20 10:00 03/07/20 10:35 Sodium Chloride Flush Syringe 10 Ml IV 10 ml BID TANNER Administration Sodium Chloride 10 ml 03/05/20 00:16 Sodium Chloride Flush Syringe 10 Ml IV PRN PRN LINE FLUSH Sodium Chloride 50 ml 03/06/20 21:00 03/06/20 21:38 Nacl 0.9% IV 03/10/20 21:01 50 ml Q24HR@2100 TANNER Administration Nutrition/Malnutrition Assess - Dietary Evaluation Nutrition/Malnutrition Findings: Nutrition Notes Start: 03/05/20 09:48 Freq: Status: Active Protocol: Document 03/06/20 13:09 LM (Rec: 03/06/20 13:18 LM [id number]) Nutrition Notes Need for Assessment generated from: MD Order Initial or Follow up Reassessment Current Diagnosis Decubitus(Pressure Ulcer) Other Pertinent Diagnosis COVID-19, pneu, UTI, bedbound multiple PUs, hx CVA Current Diet NPO Labs/Tests Na 153 BUN 62 Pertinent Medications NS at 75ml/hr Height 5 ft 8 in Weight 43.091 kg [place] Body Weight (kg) 70.00 BMI 14.4 Subjective/Other Information MD consult for TF. Pt has PEG. Burn Absent Trauma Absent Current % PO Negligible Minimum of two criteria Yes Body Fat Depletion Mild depletion (non-severe) Muscle Mass Mild Depletion (non-severe) Reduced Trolley Collector Strength Measurably Reduced (severe) #2 Nutrition Diagnosis Increased nutrient needs ( specify in comment below) Diagnosis Progress(for reassessment Continues documentation) #1 Nutrition Diagnosis Malnutrition Is patient on ventilator? No Is Patient Ambulatory and/or Out of Bed No REE-([facility]-confined to bed) 1410.600 Kcal/Kg value to use for calculation 41 Approximate Energy Requirements Using 1767 kcal/Kg Calculation Used for Recommendations Kcal/kg Additional Notes Protein: 54-65g (1.25-1.5g/kg) Fluid: 1ml/kcal Nutrition Intervention Change Diet Order: TF Nutrition Support: Jevity 1.2 at 55ml/hr Flush 150ml q4h for hypernatremia Flush 90ml q4h once resolved Kcal 1,584 Protein (gm) 73 Fluid (mL) 1,065 Add Supplement/Snack (indicate name/kcal Yonathan BID via PEG /protein ) Provides kCal: 190 Provides Protein (gm) 5 Goal #1 TF start/tolerance Goal #2 Wt gain/maintenance Goal #3 Wound healing Anticipated Discharge Needs: TF Follow-Up By: 03/08/20 Additional Comments F/U for TF start/toelrance, Yonathan
[2020-03-07] MEDS: REMDESIVIR 100 MG in SODIUM CHLORIDE 0.9% 250ML 250 ML IV SCH (23:17)
[2020-03-07] MEDS: cefTRIAXone/NS 2 GM/100 ML 2 GM/100 ML BAG IV SCH (23:18)
[2020-03-07] MEDS: AZITHROMYCIN 500 MG in SODIUM CHLORIDE 0.9% 250ML 250 ML IV SCH (23:19)
[2020-03-07] MEDS: SODIUM CHLORIDE 0.9% 50 ML IVPB IV SCH (23:19)
[2020-03-08] MEDS: SODIUM CHLORIDE 0.9% 1000 ML 1,000 ML IV SCH ×2 (01:35→15:51)
[2020-03-08] MEDS: MORPHINE 2 MG/1 ML INJ IV PRN (01:36)
[2020-03-08] MEDS: HEPARIN 5,000 UNIT/1 ML VIAL SUB-Q SCH ×3 (05:05→23:08)
[2020-03-08 06:53] LABS: Hematocrit 26.5 % (35.5-45.6); Hemoglobin 9.2 gm/dl (11.8-15.2); Lymphocytes # (Auto) 0.5 K/mm3 (1.2-5.4); Lymphocytes % (Auto) 11.9 % (13.4-35.0); Mean Corpuscular HGB Conc 35 % (32-34); Mean Corpuscular Volume 86 fl (84-94); Monocytes # (Auto) 0.2 K/mm3 (0.0-0.8); Monocytes % (Auto) 4.4 % (0.0-7.3); Platelet Count 372 K/mm3 (140-440); Red Blood Count 3.08 M/mm3 (3.65-5.03); Red Cell Distribution Width 16.8 % (13.2-15.2)
[2020-03-08 07:17] LABS: Alanine Aminotransferase 57 units/L (7-56); Blood Urea Nitrogen 37 mg/dL (9-20); Calcium 8.4 mg/dL (8.4-10.2); Hemolysis Index 2
[2020-03-08 07:19] LABS: BUN/Creatinine Ratio 74
--- NOTE | 2020-03-08 08:52 | Progress Note ---
Assessment and Plan Cultures: Blood culture 03/04/2020 no growth today SARS CoV2 PCR positive Assessment: 69 years old male with history of CVA, bedbound, resident of snf, admitted on secondary to shortness of breath and hypoxia at the snf, recent COVID-19 test positive: #Severe sepsis: Present on admission with low-grade fever, tachycardia, hypoxia, elevated LFTs, elevated lactate, likely due to bilateral pneumonia +/-UTI. #Severe COVID pneumonia: Chest x-ray with bilateral airspace disease. Elevated markers. D-dimer 1139. Venous ultrasound without any DVT. VQ scan indeterminate. #Acute hypoxia: Remains on room air. Sats down to 92%. #Elevated LFTs: from COVID #Status post PEG #UTI #Extensive decubiti sacral and back; not infected Recommendations: -Continue dexamethasone 6 mg IV/PO daily for 10 days -Continue remdesivir total 5 days -Monitor inflammatory markers - ferritin, Ddimer, CRP, LDH -Continue ceftriaxone for 5 days and azithromycin for 3 days -Monitor liver function test on Remdesivir -Continue anticoagulation per System Protocol -Prone positioning as possible -Follow-up urine culture -Offloading -Continue wound care Guarded prognosis, discuss goals of care with family All laboratory, cultures and imaging were reviewed. Will follow Clara Enrique MD Infectious Diseases Community Engagement Specialist [facility] M [phone] O [phone] Subjective Date of service: 03/08/20 Principal diagnosis: COVID-19 Interval history: Patient remains on room air. No fever. Objective - Constitutional Vitals: Vital Signs Temp Pulse Resp BP Pulse Ox 98.6 F 67 18 160/99 92 03/07/20 15:13 03/08/20 04:36 03/07/20 15:13 03/07/20 15:13 03/08/20 04:36 Temperature -Last 24 Hours Temperature 98.6 F - Labs CBC & Chem 7: 03/08/20 05:31 03/08/20 05:31 Labs: Abnormal lab results 03/07/20 03/07/20 03/08/20 Range/Units 16:00 23:33 05:31 WBC 4.3 L (4.5-11.0) K/mm3 RBC 3.08 L (3.65-5.03) M/mm3 Hgb 9.2 L (11.8-15.2) gm/dl Hct 26.5 L (35.5-45.6) % MCHC 35 H (32-34) % RDW 16.8 H (13.2-15.2) % Lymph % (Auto) 11.9 L (13.4-35.0) % Lymph # (Auto) 0.5 L (1.2-5.4) K/mm3 Seg Neutrophils % 83.7 H (40.0-70.0) % D-Dimer (0-234) ng/mlDDU Chloride (98-107) mmol/L BUN (9-20) mg/dL Creatinine (0.8-1.3) mg/dL Glucose (75-100) mg/dL POC Glucose 66 L 138 H (70-105) mg/dL Ferritin (30.0-300.0) ng/mL AST (5-40) units/L ALT (7-56) units/L Lactate Dehydrogenase (91-180) units/L C-Reactive Protein (0.00-1.30) mg/dL Albumin (3.9-5) g/dL 03/08/20 03/08/20 03/08/20 Range/Units 05:31 05:31 05:31 WBC (4.5-11.0) K/mm3 RBC (3.65-5.03) M/mm3 Hgb (11.8-15.2) gm/dl Hct (35.5-45.6) % MCHC (32-34) % RDW (13.2-15.2) % Lymph % (Auto) (13.4-35.0) % Lymph # (Auto) (1.2-5.4) K/mm3 Seg Neutrophils % (40.0-70.0) % D-Dimer 583.93 H (0-234) ng/mlDDU Chloride 110.9 H (98-107) mmol/L BUN 37 H (9-20) mg/dL Creatinine 0.5 L (0.8-1.3) mg/dL Glucose 166 H (75-100) mg/dL POC Glucose (70-105) mg/dL Ferritin 1603.0 H (30.0-300.0) ng/mL AST 65 H (5-40) units/L ALT 57 H (7-56) units/L Lactate Dehydrogenase 234 H (91-180) units/L C-Reactive Protein 8.50 H (0.00-1.30) mg/dL Albumin 2.0 L (3.9-5) g/dL 03/08/20 Range/Units 06:30 WBC (4.5-11.0) K/mm3 RBC (3.65-5.03) M/mm3 Hgb (11.8-15.2) gm/dl Hct (35.5-45.6) % MCHC (32-34) % RDW (13.2-15.2) % Lymph % (Auto) (13.4-35.0) % Lymph # (Auto) (1.2-5.4) K/mm3 Seg Neutrophils % (40.0-70.0) % D-Dimer (0-234) ng/mlDDU Chloride (98-107) mmol/L BUN (9-20) mg/dL Creatinine (0.8-1.3) mg/dL Glucose (75-100) mg/dL POC Glucose 106 H (70-105) mg/dL Ferritin (30.0-300.0) ng/mL AST (5-40) units/L ALT (7-56) units/L Lactate Dehydrogenase (91-180) units/L C-Reactive Protein (0.00-1.30) mg/dL Albumin (3.9-5) g/dL
[2020-03-08] MEDS: dexAMETHasone 4 MG/ML VIAL IV SCH (10:38)
[2020-03-08] MEDS: SODIUM HYPOCHLORITE, DAKIN'S 1/2 STRENGTH (0.25%) 473 ML TOPICAL SOLN TP SCH ×2 (15:50→23:26)
--- NOTE | 2020-03-08 17:17 | Progress Note ---
Assessment and Plan - Patient Problems (1) Severe sepsis Current Visit: Yes Status: Acute Plan to address problem: Presented with lactic acidosis, UTI on urine analysis, CXR showed patchy airspace disease with emphysema, hypoxia, tachycardia, tachypnea Infectious disease consulted S/p antibiotic therapy for COVID-19 pneumonia On IV antibiotic therapy for urinary tract infection 03/04 blood culture x2 with no growth after 72 hours Trend CBC and monitor vital signs (2) COVID-19 Current Visit: Yes Status: Acute Plan to address problem: 03/05 COVID-19 PCR positive S/p antibiotic therapy which was discontinued given normal procalcitonin Infectious disease consulted Steroid therapy for 10 days 03/07 remdesivir therapy initiated Anticoagulation per protocol Trend inflammatory markers Supplemental oxygen as needed Prone to sleep as needed Pulmonary hygiene We will likely need to DC with Eliquis 12.5 twice daily for 10/28 days (3) Bilateral pneumonia Current Visit: Yes Status: Acute Qualifiers: Pneumonia type: due to unspecified organism Lung location: lower lobe of lung Qualified Code(s): J18.9 - Pneumonia, unspecified organism Plan to address problem: Presented with pneumonia on CXR S/p antibiotic therapy Infectious disease consulted Supplemental oxygen as needed Pulmonary hygiene (4) Acute respiratory distress Current Visit: Yes Status: Acute Plan to address problem: Presented with hypoxia on room air Supplemental oxygen as needed Pulmonary hygiene (5) Hypernatremia Current Visit: Yes Status: Resolved Plan to address problem: Presented with a sodium of 146, 03/06 sodium 133, 03/07 sodium 150, 03/08 sodium 144 S/p hypotonic solution S/p maintenance IV fluids normal saline Trend BMP Monitor neuro status (6) Hyperchloremia Current Visit: Yes Status: Acute Plan to address problem: 03/06 chloride 114.2, 03/07 chloride 114.5, 03/08 chloride 110.9 S/p maintenance IV fluids normal saline S/p hypotonic solution Trend BMP (7) Transaminitis Current Visit: Yes Status: Acute Plan to address problem: Presented with elevated LFTs of AST 168, ALT 107, alkaline phos 83 Trend LFTs Patient is on remdesivir therapy started on 03/07 Monitor LFTs while on remdesivir Secondary to COVID-19 infection (8) Elevated d-dimer Current Visit: Yes Status: Acute Plan to address problem: Patient presented with a D-dimer of 1139, 03/06 D-dimer 903, 03/08 D-dimer 583 Anticoagulation per COVID-19 protocol 03/05 bilateral lower extremity Doppler ultrasound negative for DVT/SVT 03/07 VQ scan indeterminate for pulmonary embolism Unable to get CTA chest because of inability to obtain consent (9) UTI (urinary tract infection) Current Visit: Yes Status: Acute Plan to address problem: Presented with urinary tract infection on urinalysis Antibiotic therapy Trend CBC Supportive care (10) Wounds, multiple Current Visit: Yes Status: Acute Plan to address problem: WOCN consult [facility] Wound care per nursing (11) CVA, old, ataxia Current Visit: Yes Status: Chronic Plan to address problem: Supportive care Patient has left upper extremity contracture and aphasia Aspiration/fall precautions S/p PEG (12) DVT prophylaxis Current Visit: Yes Status: Acute Plan to address problem: Heparin subcu SCDs to bilateral tremors while in bed History Interval history: This is a 69-year-old male who suffered from a CVA and is bedbound, [facility] who presented to the emergency department on 03/06 with shortness of breath and hypoxia. His SPO2 was 85% on room air and he tested positive for COVID-19 at his [facility] recently. Upon arrival patient showed sepsis, elevated COVID-19 markers, lactic acidosis, hyperkalemia, dehydration, hyponatremia, borderline hyperglycemia and urinary tract infection and his chest x-ray showed mild patchy parenchymal disease in the left lower lung likely rela amira to pneumonia and emphysema. Infectious disease was consulted. Patient patient is on room air and tells me to call his nephew however he does not have his number. No acute events reported overnight. Patient is on day 2 of his remdesivir therapy. 03/06: Hypertonic solution started 03/07: tube feeding started, VQ scan showed indeterminate for the presence of pulmonary embolism, venous duplex bilateral lower extremity showed no DVT or SVT, remdesivir therapy started Hospitalist Physical - Constitutional Vitals: Temp Pulse Resp BP Pulse Ox 98.4 F 95 H 20 148/102 91 03/08/20 15:50 03/08/20 15:50 03/08/20 15:50 03/08/20 15:50 03/08/20 15:50 General appearance: Present: no acute distress, cachectic, other (Contracted) - EENT Eyes: Present: PERRL, EOM intact ENT: hearing decreased, poor dentition - Neck Neck: Present: normal ROM - Respiratory Respiratory effort: normal Respiratory: bilateral: diminished - Extremities Extremities: no ischemia, pulses intact, pulses symmetrical, No edema, normal temperature, normal color Peripheral Pulses: within normal limits - Abdominal General gastrointestinal: soft, non-tender, non-distended, normal bowel sounds - Integumentary Integumentary: Present: warm, dry - Psychiatric Psychiatric: cooperative - Neurologic Neurologic: CNII-XII intact, no moves all extremities (left UE contracted) Results - Labs CBC & Chem 7: 03/08/20 05:31 03/08/20 05:31 Labs: Laboratory Last Values WBC 4.3 K/mm3 (4.5-11.0) L 03/08/20 05:31 RBC 3.08 M/mm3 (3.65-5.03) L 03/08/20 05:31 Hgb 9.2 gm/dl (11.8-15.2) L 03/08/20 05:31 Hct 26.5 % (35.5-45.6) L 03/08/20 05:31 MCV 86 fl (84-94) 03/08/20 05:31 MCH 30 pg (28-32) 03/08/20 05:31 MCHC 35 % (32-34) H 03/08/20 05:31 RDW 16.8 % (13.2-15.2) H 03/08/20 05:31 Plt Count 372 K/mm3 (140-440) 03/08/20 05:31 Lymph % (Auto) 11.9 % (13.4-35.0) L 03/08/20 05:31 Ida % (Auto) 4.4 % (0.0-7.3) 03/08/20 05:31 Eos % (Auto) 0.0 % (0.0-4.3) 03/08/20 05:31 Baso % (Auto) 0.0 % (0.0-1.8) 03/08/20 05:31 Lymph # (Auto) 0.5 K/mm3 (1.2-5.4) L 03/08/20 05:31 Ida # (Auto) 0.2 K/mm3 (0.0-0.8) 03/08/20 05:31 Eos # (Auto) 0.0 K/mm3 (0.0-0.4) 03/08/20 05:31 Baso # (Auto) 0.0 K/mm3 (0.0-0.1) 03/08/20 05:31 Seg Neutrophils % 83.7 % (40.0-70.0) H 03/08/20 05:31 Seg Neutrophils # 3.6 K/mm3 (1.8-7.7) 03/08/20 05:31 PT 18.9 Sec. (12.2-14.9) H 03/06/20 05:21 INR 1.58 (0.87-1.13) H 03/06/20 05:21 D-Dimer 583.93 ng/mlDDU (0-234) H 03/08/20 05:31 Sodium 144 mmol/L (137-145) 03/08/20 05:31 Potassium 3.8 mmol/L (3.6-5.0) 03/08/20 05:31 Chloride 110.9 mmol/L (98-107) H 03/08/20 05:31 Carbon Dioxide 23 mmol/L (22-30) 03/08/20 05:31 Anion Gap 14 mmol/L 03/08/20 05:31 BUN 37 mg/dL (9-20) H 03/08/20 05:31 Creatinine 0.5 mg/dL (0.8-1.3) L 03/08/20 05:31 Estimated GFR > 60 ml/min 03/08/20 05:31 BUN/Creatinine Ratio 74 % 03/08/20 05:31 Glucose 166 mg/dL (75-100) H 03/08/20 05:31 POC Glucose 116 mg/dL (70-105) H 03/08/20 16:34 Lactic Acid 0.90 mmol/L (0.7-2.0) 03/05/20 06:09 Calcium 8.4 mg/dL (8.4-10.2) 03/08/20 05:31 Ferritin 1603.0 ng/mL (30.0-300.0) H 03/08/20 05:31 Total Bilirubin 0.20 mg/dL (0.1-1.2) 03/08/20 05:31 AST 65 units/L (5-40) H 03/08/20 05:31 ALT 57 units/L (7-56) H 03/08/20 05:31 Alkaline Phosphatase 70 units/L (35-129) 03/08/20 05:31 Lactate Dehydrogenase 234 units/L (91-180) H 03/08/20 05:31 C-Reactive Protein 8.50 mg/dL (0.00-1.30) H 03/08/20 05:31 Total Protein 6.8 g/dL (6.3-8.2) 03/08/20 05:31 Albumin 2.0 g/dL (3.9-5) L 03/08/20 05:31 Albumin/Globulin Ratio 0.4 % 03/08/20 05:31 Procalcitonin 0.51 ng/mL (<0.15) 03/06/20 05:21 Urine Color Vicki (Yellow) 03/04/20 23:10 Urine Turbidity Slightly-cloudy (Clear) 03/04/20 23:10 Urine pH 8.0 (5.0-7.0) H 03/04/20 23:10 Ur Specific [place] 1.020 (1.003-1.030) 03/04/20 23:10 Urine Protein 100 mg/dl mg/dL (Negative) 03/04/20 23:10 Urine Glucose (UA) Neg mg/dL (Negative) 03/04/20 23:10 Urine Ketones Neg mg/dL (Negative) 03/04/20 23:10 Urine Blood Mod (Negative) 03/04/20 23:10 Urine Nitrite Neg (Negative) 03/04/20 23:10 Urine Bilirubin Neg (Negative) 03/04/20 23:10 Urine Urobilinogen 4.0 mg/dL (<2.0) 03/04/20 23:10 Ur Leukocyte Esterase Mod (Negative) 03/04/20 23:10 Urine WBC (Auto) 154.0 /HPF (0.0-6.0) H 03/04/20 23:10 Urine RBC (Auto) > 182.0 /HPF (0.0-6.0) 03/04/20 23:10 Urine Bacteria (Auto) 1+ /HPF (Negative) 03/04/20 23:10 Urine Mucus Few /HPF 03/04/20 23:10 Coronavirus (PCR) Positive (Negative) A 03/05/20 10:59 Microbiology: Microbiology 03/04/20 21:37 Peripheral/Venous Blood Culture - Preliminary NO GROWTH AFTER 72 HOURS 03/04/20 21:37 Peripheral/Venous Blood Culture - Preliminary NO GROWTH AFTER 72 HOURS Deutsch/IV: Voiding Method External Female Catheter IV Catheter Type [Right Upper INT / Saline Lock arm] IV Catheter Type [Right Peripheral IV Antecubital] Active Medications - Current Medications Current Medications: Generic Name Dose Route Start Last Admin Trade Name Freq PRN Reason Stop Dose Admin Acetaminophen 650 mg 03/05/20 00:16 Tylenol PO Q4H PRN Pain MILD(1-3)/Fever >100.5/IBARRA Albuterol 2.5 mg 03/06/20 13:33 Proventil IH Q4HRT PRN Shortness Of Breath Lipase/Protease/Amylase 1 each 03/06/20 13:[address] 10,500 Unit FEEDTUBE PRN PRN For Clogged Feeding Tube Dexamethasone 6 mg 03/09/20 10:00 Decadron IV 03/13/20 12:00 Q24HR TANNER Dextrose 50 ml 03/06/20 22:08 D50w (25gm) Syringe IV Q30MIN PRN Hypoglycemia Protocol Heparin Sodium (Porcine) 5,000 unit 03/05/20 06:00 03/08/20 14:50 Heparin SUB-Q 5,000 unit Q8HR TANNER Administration Ceftriaxone Sodium 2 gm in 100 mls @ 200 mls/hr 03/04/20 22:00 03/07/20 23:18 Rocephin/Ns 2 Gm/100 Ml IV 03/08/20 22:29 200 mls/hr Q24H TANNER Administration Protocol REMDESIVIR 100 mg/ Sodium 250 mls @ 500 mls/hr 03/07/20 21:00 03/07/20 23:17 Chloride IV 03/10/20 21:29 500 mls/hr Q24HR@2100 TANNER Administration Metoclopramide HCl 10 mg 03/05/20 00:16 Reglan IV Q6H PRN Nausea And Vomiting Morphine Sulfate 2 mg 03/05/20 00:16 03/08/20 01:36 Morphine IV 2 mg Q4H PRN Administration Pain, Moderate (4-6) Simple Syrup 15 ml 03/06/20 13:18 Simple Syrup FEEDTUBE PRN PRN Hypoglycemia Simple Syrup 30 ml 03/06/20 13:18 Simple Syrup FEEDTUBE PRN PRN Hypoglycemia Sodium Bicarbonate 325 mg 03/06/20 13:18 Sodium Bicarbonate FEEDTUBE PRN PRN For Clogged Feeding Tube Sodium Chloride 10 ml 03/05/20 10:00 03/08/20 10:38 Sodium Chloride Flush Syringe 10 Ml IV 10 ml BID TANNER Administration Sodium Chloride 10 ml 03/05/20 00:16 Sodium Chloride Flush Syringe 10 Ml IV PRN PRN LINE FLUSH Sodium Chloride 50 ml 03/06/20 21:00 03/07/20 23:19 Nacl 0.9% IV 03/10/20 21:01 50 ml Q24HR@2100 TANNER Administration Sodium Hypochlorite 1 applic 03/08/20 10:00 03/08/20 15:50 Dakin's Half Strength TP Not Given BID TANNER Nutrition/Malnutrition Assess - Dietary Evaluation Nutrition/Malnutrition Findings: Nutrition Notes Start: 03/05/20 09:48 Freq: Status: Active Protocol: Document 03/08/20 13:19 AT (Rec: 03/08/20 13:29 AT [id number]) Co-Sign 03/08/20 13:19 LP Nutrition Notes Initial or Follow up Reassessment Current Diagnosis Decubitus(Pressure Ulcer) Other Pertinent Diagnosis COVID-19, pneu, UTI, bedbound multiple PUs, hx CVA Current Diet TF, Jevity 1.2 at 55 mL/hr Labs/Tests BUN 37 Cr 0.5 BG 166 Pertinent Medications Decadron NS at 75 mL/hr Height 5 ft 8 in Weight 41 kg [place] Body Weight (kg) 70.00 BMI 13.7 Weight change and time frame Weight losst of 4.9% in 4 days Subjective/Other Information F/U for TF start/tolerance. Per RN, pt is at 45 mL/hr and will be at goal rate by 4:30PM . RN reports that pt is tolerating TF well without residuals. Pt is not receiving Yonathan BID. Percent of energy/protein needs met: 74%/71% Burn Absent Trauma Absent Current % PO Negligible Minimum of two criteria Yes Interpretation of Weight Loss (severe) >2% in 1 week Body Fat Depletion Mild depletion (non-severe) Muscle Mass Mild Depletion (non-severe) Reduced Filter Tip Catcher Strength Measurably Reduced (severe) #2 Nutrition Diagnosis Increased nutrient needs ( specify in comment below) Diagnosis Progress(for reassessment Continues documentation) #1 Nutrition Diagnosis Malnutrition As Evidenced by Signs and Symptoms 4.9% weight loss x 4 days, decreasing BMI of 13.7 Diagnosis Progress(for reassessment Worsened documentation) Is patient on ventilator? No Is Patient Ambulatory and/or Out of Bed No REE-([place]-St. Jeor-confined to bed) 1385.532 Kcal/Kg value to use for calculation 43 Approximate Energy Requirements Using 1763 kcal/Kg Calculation Used for Recommendations Kcal/kg Additional Notes PRO needs: 51-62g (1.25-1.5 g/ kg) Fluid needs: 1 mL/kcal Nutrition Intervention Change Diet Order: Continue TF Nutrition Support: Jevity 1.2 at 55ml/hr Flush 90ml q4h once resolved Kcal 1,584 Protein (gm) 73 Fluid (mL) 1,065 Add Supplement/Snack (indicate name/kcal Yonathan BID via PEG /protein ) Provides kCal: 190 Provides Protein (gm) 5 Goal #1 Continued TF tolerance Goal #2 Weight gain and or maintenance Goal #3 Wound healing Goal #4 Meet at least 80% of estimated energy and protein needs via TF Anticipated Discharge Needs: TF Follow-Up By: 03/11/20 Additional Comments F/U for continued TF tolerance
[2020-03-08] MEDS: cefTRIAXone/NS 2 GM/100 ML 2 GM/100 ML BAG IV SCH (23:10)
[2020-03-08] MEDS: REMDESIVIR 100 MG in SODIUM CHLORIDE 0.9% 250ML 250 ML IV SCH (23:10)
[2020-03-08] MEDS: SODIUM CHLORIDE 0.9% 50 ML IVPB IV SCH (23:11)
[2020-03-09] MEDS: HEPARIN 5,000 UNIT/1 ML VIAL SUB-Q SCH ×3 (05:27→21:23)
[2020-03-09 06:27] LABS: Basophils % (Auto) 0.1 % (0.0-1.8); Eosinophils % (Auto) 0.1 % (0.0-4.3); Hematocrit 35.7 % (35.5-45.6); Hemoglobin 11.2 gm/dl (11.8-15.2); Lymphocytes # (Auto) 0.8 K/mm3 (1.2-5.4); Lymphocytes % (Auto) 18.6 % (13.4-35.0); Mean Corpuscular HGB Conc 32 % (32-34); Mean Corpuscular Volume 90 fl (84-94); Monocytes # (Auto) 0.2 K/mm3 (0.0-0.8); Monocytes % (Auto) 5.4 % (0.0-7.3); Platelet Count 358 K/mm3 (140-440); Red Blood Count 3.98 M/mm3 (3.65-5.03)
[2020-03-09 06:45] LABS: Alanine Aminotransferase 56 units/L (7-56); Albumin 2.2 g/dL (3.9-5); Blood Urea Nitrogen 27 mg/dL (9-20); Calcium 8.2 mg/dL (8.4-10.2); Hemolysis Index 15
[2020-03-09 06:47] LABS: BUN/Creatinine Ratio 68
--- NOTE | 2020-03-09 08:12 | Progress Note ---
Assessment and Plan Cultures: Blood culture 03/04/2020 no growth today SARS CoV2 PCR positive Assessment: 69 years old male with history of CVA, bedbound, resident of [facility], admitted on secondary to shortness of breath and hypoxia at the [facility], recent COVID-19 test positive: #Severe sepsis: Present on admission with low-grade fever, tachycardia, hypoxia, elevated LFTs, elevated lactate, likely due to bilateral pneumonia +/-UTI. #Severe COVID pneumonia: Chest x-ray with bilateral airspace disease. Elevated markers. D-dimer 1139. Venous ultrasound without any DVT. VQ scan indeterminate. #Acute hypoxia: Remains on room air. #Elevated LFTs: from COVID #Status post PEG #UTI #Extensive decubiti sacral and back; not infected Recommendations: -Continue dexamethasone 6 mg IV/PO daily for 10 days - D3 of 10 -Continue remdesivir total 5 days - D3 of 5 -Monitor inflammatory markers - ferritin, Ddimer, CRP, LDH -Completed ceftriaxone for 5 days and azithromycin for 3 days -Monitor liver function test on Remdesivir -Continue anticoagulation per System Protocol -Prone positioning as possible -Follow-up urine culture -Offloading -Continue wound care Guarded prognosis, discuss goals of care with family All laboratory, cultures and imaging were reviewed. Will follow Clara Enrique MD Infectious Diseases Event Designer [facility] M [phone] O [phone] Subjective Date of service: 03/09/20 Principal diagnosis: COVID-19 Interval history: Patient remains on room air. No fever. Objective - Exam Narrative Exam: Physical Exam: reviewed ED and hospitalist notes, limited due to conservation of PPE and decrease risk of transmission. General appearance: limited due to conservation of PPE Eyes: limited due to conservation of PPE HENT: Atraumatic; limited due to conservation of PPE Lungs: limited due to conservation of PPE CV: limited due to conservation of PPE Abdomen: limited due to conservation of PPE Extremities: limited due to conservation of PPE Skin: limited due to conservation of PPE Psych: limited due to conservation of PPE Neuro: limited due to conservation of PPE - Constitutional Vitals: Vital Signs Temp Pulse Resp BP Pulse Ox 97.4 F L 101 H 18 202/78 96 03/09/20 03:36 03/09/20 03:36 03/09/20 03:36 03/09/20 03:36 03/09/20 03:36 Temperature -Last 24 Hours Temperature 97.4 F Temperature 98.3 F Temperature 98.4 F - Labs CBC & Chem 7: 03/09/20 06:03 03/09/20 06:03 Labs: Abnormal lab results 03/08/20 03/08/20 03/09/20 Range/Units 16:34 22:47 05:13 WBC (4.5-11.0) K/mm3 Hgb (11.8-15.2) gm/dl RDW (13.2-15.2) % Lymph # (Auto) (1.2-5.4) K/mm3 Seg Neutrophils % (40.0-70.0) % BUN (9-20) mg/dL Creatinine (0.8-1.3) mg/dL Glucose (75-100) mg/dL POC Glucose 116 H 126 H 110 H (70-105) mg/dL Calcium (8.4-10.2) mg/dL AST (5-40) units/L Albumin (3.9-5) g/dL 03/09/20 03/09/20 Range/Units 06:03 06:03 WBC 4.2 L (4.5-11.0) K/mm3 Hgb 11.2 L (11.8-15.2) gm/dl RDW 17.0 H (13.2-15.2) % Lymph # (Auto) 0.8 L (1.2-5.4) K/mm3 Seg Neutrophils % 75.8 H (40.0-70.0) % BUN 27 H (9-20) mg/dL Creatinine 0.4 L (0.8-1.3) mg/dL Glucose 102 H (75-100) mg/dL POC Glucose (70-105) mg/dL Calcium 8.2 L (8.4-10.2) mg/dL AST 53 H (5-40) units/L Albumin 2.2 L (3.9-5) g/dL
[2020-03-09] MEDS: dexAMETHasone 4 MG/ML VIAL IV SCH (09:48)
[2020-03-09] MEDS: ASCORBIC ACID 500 MG TAB FEEDTUBE SCH (09:49)
[2020-03-09] MEDS: LANSOPRAZOLE 30 MG SOLUTAB FEEDTUBE SCH (09:49)
[2020-03-09] MEDS: CALCIUM CARBONATE 1250 MG/5 ML ORAL LIQD FEEDTUBE SCH (09:50)
[2020-03-09] MEDS: LISINOPRIL 5 MG TAB FEEDTUBE SCH (09:58)
[2020-03-09] MEDS: METOPROLOL TARTRATE 25 MG TAB FEEDTUBE SCH ×2 (09:58→21:38)
[2020-03-09] MEDS ORDERED: NON-FORMULARY EACH (Omeprazole [Omeprazole] 20 MG) FEEDTUBE SCH (10:00)
[2020-03-09] MEDS ORDERED: DEXAMETHASONE 4 MG TAB PO SCH (10:00)
[2020-03-09] MEDS ORDERED: CALCIUM CARBONATE 600 MG FEEDTUBE SCH (10:00)
[2020-03-09] MEDS ORDERED: MAGNESIUM OXIDE FEEDTUBE SCH (10:00)
--- NOTE | 2020-03-09 13:52 | Progress Note ---
<FARZAD CARTER BeverleyFelicita - Last Filed: 03/09/20 13:47> Assessment and Plan - Patient Problems (1) Severe sepsis Current Visit: Yes Status: Acute Plan to address problem: Presented with lactic acidosis, UTI on urine analysis, CXR showed patchy airspace disease with emphysema, hypoxia, tachycardia, tachypnea Infectious disease consulted S/p antibiotic therapy for COVID-19 pneumonia On IV antibiotic therapy for urinary tract infection 03/04 blood culture x2 with no growth after 72 hours Trend CBC and monitor vital signs (2) COVID-19 Current Visit: Yes Status: Acute Plan to address problem: 03/05 COVID-19 PCR positive S/p antibiotic therapy which was discontinued given normal procalcitonin Infectious disease consulted Steroid therapy for 10 days 03/07 remdesivir therapy initiated Anticoagulation per protocol Trend inflammatory markers Supplemental oxygen as needed Prone to sleep as needed Pulmonary hygiene We will likely need to DC with Eliquis 12.5 twice daily for 10/28 days (3) Bilateral pneumonia Current Visit: Yes Status: Acute Qualifiers: Pneumonia type: due to unspecified organism Lung location: lower lobe of lung Qualified Code(s): J18.9 - Pneumonia, unspecified organism Plan to address problem: Presented with pneumonia on CXR S/p antibiotic therapy Infectious disease consulted Supplemental oxygen as needed Pulmonary hygiene (4) Acute respiratory distress Current Visit: Yes Status: Acute Plan to address problem: Presented with hypoxia on room air Supplemental oxygen as needed Pulmonary hygiene (5) Hyperchloremia Current Visit: Yes Status: Resolved Plan to address problem: 03/06 chloride 114.2, 03/07 chloride 114.5, 03/08 chloride 110.9, 03/09 105.9 S/p maintenance IV fluids normal saline S/p hypotonic solution Trend BMP (6) Transaminitis Current Visit: Yes Status: Acute Plan to address problem: Presented with elevated LFTs of AST 168, ALT 107, alkaline phos 83 Trend LFTs Patient is on remdesivir therapy started on 03/07 Monitor LFTs while on remdesivir Secondary to COVID-19 infection LFTs are trending down and mostly resolved (7) Elevated d-dimer Current Visit: Yes Status: Acute Plan to address problem: Patient presented with a D-dimer of 1139, 03/06 D-dimer 903, 03/08 D-dimer 583 Anticoagulation per COVID-19 protocol 03/05 bilateral lower extremity Doppler ultrasound negative for DVT/SVT 03/07 VQ scan indeterminate for pulmonary embolism Unable to get CTA chest because of inability to obtain consent (8) UTI (urinary tract infection) Current Visit: Yes Status: Acute Plan to address problem: Presented with urinary tract infection on urinalysis Antibiotic therapy Trend CBC Supportive care (9) Wounds, multiple Current Visit: Yes Status: Acute Plan to address problem: WOCN consult Patient is a custodial patient Wound care per nursing (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 His SPO2 was 85% on room air and he tested positive for COVID-19 at his custodial recently. Upon arrival patient showed sepsis, elevated COVID-19 markers, lactic acidosis, hyperkalemia, dehydration, hyponatremia, borderline hyperglycemia and urinary tract infection and his chest x-ray showed mild patchy parenchymal disease in the left lower lung likely related to pneumonia and emphysema. Infectious disease was consulted. Patient patient is on room air. No acute events reported overnight. Patient is on day 3 of his remdesivir therapy. 03/06: Hypertonic solution started, steroids, remdesivir 03/07: tube feeding started, VQ scan showed indeterminate for the presence of pu lmonary embolism, venous duplex bilateral lower extremity showed no DVT or SVT, remdesivir therapy started 03/08: Continue dexamethasone and remdesivir, patient is on room air Hospitalist Physical - Constitutional Vitals: Temp Pulse Resp BP Pulse Ox 97.4 F L 89 18 133/91 96 03/09/20 03:36 03/09/20 09:58 03/09/20 03:36 03/09/20 09:58 03/09/20 03:36 General appearance: Present: no acute distress, cachectic, other (Contracted) - EENT Eyes: Present: PERRL, EOM intact ENT: hearing decreased, poor dentition - Neck Neck: Present: normal ROM - Respiratory Respiratory effort: normal Respiratory: bilateral: diminished - Cardiovascular Rhythm: regular Heart Sounds: Present: S1 & S2. Absent: systolic murmur, diastolic murmur - Extremities Extremities: no ischemia, pulses intact, pulses symmetrical, No edema, normal temperature, normal color Peripheral Pulses: within normal limits - Abdominal General gastrointestinal: soft, non-tender, non-distended, normal bowel sounds - Integumentary Integumentary: Present: warm, dry - Psychiatric Psychiatric: cooperative - Neurologic Neurologic: CNII-XII intact, no moves all extremities - Allied Health Allied health notes reviewed: nursing Results - Labs CBC & Chem 7: 03/09/20 06:03 03/09/20 06:03 Labs: Laboratory Last Values WBC 4.2 K/mm3 (4.5-11.0) L 03/09/20 06:03 RBC 3.98 M/mm3 (3.65-5.03) 03/09/20 06:03 Hgb 11.2 gm/dl (11.8-15.2) L 03/09/20 06:03 Hct 35.7 % (35.5-45.6) D 03/09/20 06:03 MCV 90 fl (84-94) 03/09/20 06:03 MCH 28 pg (28-32) 03/09/20 06:03 MCHC 32 % (32-34) 03/09/20 06:03 RDW 17.0 % (13.2-15.2) H 03/09/20 06:03 Plt Count 358 K/mm3 (140-440) 03/09/20 06:03 Lymph % (Auto) 18.6 % (13.4-35.0) 03/09/20 06:03 [place] % (Auto) 5.4 % (0.0-7.3) 03/09/20 06:03 Eos % (Auto) 0.1 % (0.0-4.3) 03/09/20 06:03 Baso % (Auto) 0.1 % (0.0-1.8) 03/09/20 06:03 Lymph # (Auto) 0.8 K/mm3 (1.2-5.4) L 03/09/20 06:03 [place] # (Auto) 0.2 K/mm3 (0.0-0.8) 03/09/20 06:03 Eos # (Auto) 0.0 K/mm3 (0.0-0.4) 03/09/20 06:03 Baso # (Auto) 0.0 K/mm3 (0.0-0.1) 03/09/20 06:03 Seg Neutrophils % 75.8 % (40.0-70.0) H 03/09/20 06:03 Seg Neutrophils # 3.2 K/mm3 (1.8-7.7) 03/09/20 06:03 PT 18.9 Sec. (12.2-14.9) H 03/06/20 05:21 INR 1.58 (0.87-1.13) H 03/06/20 05:21 D-Dimer 583.93 ng/mlDDU (0-234) H 03/08/20 05:31 Sodium 141 mmol/L (137-145) 03/09/20 06:03 Potassium 4.7 mmol/L (3.6-5.0) D 03/09/20 06:03 Chloride 105.9 mmol/L (98-107) 03/09/20 06:03 Carbon Dioxide 25 mmol/L (22-30) 03/09/20 06:03 Anion Gap 15 mmol/L 03/09/20 06:03 BUN 27 mg/dL (9-20) H 03/09/20 06:03 Creatinine 0.4 mg/dL (0.8-1.3) L 03/09/20 06:03 Estimated GFR > 60 ml/min 03/09/20 06:03 BUN/Creatinine Ratio 68 % 03/09/20 06:03 Glucose 102 mg/dL (75-100) H 03/09/20 06:03 POC Glucose 110 mg/dL (70-105) H 03/09/20 05:13 Lactic Acid 0.90 mmol/L (0.7-2.0) 03/05/20 06:09 Calcium 8.2 mg/dL (8.4-10.2) L 03/09/20 06:03 Ferritin 1603.0 ng/mL (30.0-300.0) H 03/08/20 05:31 Total Bilirubin 0.20 mg/dL (0.1-1.2) 03/09/20 06:03 AST 53 units/L (5-40) H 03/09/20 06:03 ALT 56 units/L (7-56) 03/09/20 06:03 Alkaline Phosphatase 78 units/L (35-129) 03/09/20 06:03 Lactate Dehydrogenase 234 units/L (91-180) H 03/08/20 05:31 C-Reactive Protein 8.50 mg/dL (0.00-1.30) H 03/08/20 05:31 Total Protein 6.5 g/dL (6.3-8.2) 03/09/20 06:03 Albumin 2.2 g/dL (3.9-5) L 03/09/20 06:03 Albumin/Globulin Ratio 0.5 % 03/09/20 06:03 Procalcitonin 0.51 ng/mL (<0.15) 03/06/20 05:21 Urine Color Vicki (Yellow) 03/04/20 23:10 Urine Turbidity Slightly-cloudy (Clear) 03/04/20 23:10 Urine pH 8.0 (5.0-7.0) H 03/04/20 23:10 Ur Specific [place] 1.020 (1.003-1.030) 03/04/20 23:10 Urine Protein 100 mg/dl mg/dL (Negative) 03/04/20 23:10 Urine Glucose (UA) Neg mg/dL (Negative) 03/04/20 23:10 Urine Ketones Neg mg/dL (Negative) 03/04/20 23:10 Urine Blood Mod (Negative) 03/04/20 23:10 Urine Nitrite Neg (Negative) 03/04/20 23:10 Urine Bilirubin Neg (Negative) 03/04/20 23:10 Urine Urobilinogen 4.0 mg/dL (<2.0) 03/04/20 23:10 Ur Leukocyte Esterase Mod (Negative) 03/04/20 23:10 Urine WBC (Auto) 154.0 /HPF (0.0-6.0) H 03/04/20 23:10 Urine RBC (Auto) > 182.0 /HPF (0.0-6.0) 03/04/20 23:10 Urine Bacteria (Auto) 1+ /HPF (Negative) 03/04/20 23:10 Urine Mucus Few /HPF 03/04/20 23:10 Coronavirus (PCR) Positive (Negative) A 03/05/20 10:59 Microbiology: Microbiology 03/04/20 21:37 Peripheral/Venous Blood Culture - Preliminary NO GROWTH AFTER 4 DAYS 03/04/20 21:37 Peripheral/Venous Blood Culture - Preliminary NO GROWTH AFTER 4 DAYS Deutsch/IV: Voiding Method Diaper IV Catheter Type [Right Upper INT / Saline Lock arm] IV Catheter Type [Right Peripheral IV Antecubital] Active Medications - Current Medications Current Medications: Generic Name Dose Route Start Last Admin Trade Name Freq PRN Reason Stop Dose Admin Acetaminophen 650 mg 03/05/20 00:16 Tylenol PO Q4H PRN Pain MILD(1-3)/Fever >100.5/IBARRA Albuterol 2.5 mg 03/06/20 13:33 Proventil IH Q4HRT PRN Shortness Of Breath Lipase/Protease/Amylase 1 each 03/06/20 13:18 Pancreaze 10,500 Unit FEEDTUBE PRN PRN For Clogged Feeding Tube Ascorbic Acid 500 mg 03/09/20 10:00 03/09/20 09:49 Vitamin C FEEDTUBE 500 mg DAILY TANNER Administration Atorvastatin Calcium 40 mg 03/09/20 22:00 Lipitor FEEDTUBE QHS TANNER Calcium Carbonate/Glycine 625 mg 03/09/20 10:00 03/09/20 09:50 Calcium Carbonate FEEDTUBE 625 mg DAILY TANNER Administration Dexamethasone 6 mg 03/09/20 10:00 03/09/20 09:48 Decadron IV 03/13/20 12:00 6 mg Q24HR TANNER Administration Dextrose 50 ml 03/06/20 22:08 D50w (25gm) Syringe IV Q30MIN PRN Hypoglycemia Protocol Doxazosin Mesylate 1 mg 03/09/20 22:00 Cardura FEEDTUBE QHS TANNER Heparin Sodium (Porcine) 5,000 unit 03/05/20 06:00 03/09/20 05:27 Heparin SUB-Q 5,000 unit Q8HR TANNER Administration REMDESIVIR 100 mg/ Sodium 250 mls @ 500 mls/hr 03/07/20 21:00 03/08/20 23:10 Chloride IV 03/10/20 21:29 500 mls/hr Q24HR@2100 TANNER Administration Labetalol HCl 10 mg 03/09/20 06:22 03/09/20 06:46 Labetalol IV 10 mg Q6HR PRN Administration Blood Pressure Lansoprazole 30 mg 03/09/20 10:00 03/09/20 09:49 Prevacid Solutab FEEDTUBE 30 mg QDAY TANNER Administration Lisinopril 5 mg 03/09/20 10:00 03/09/20 09:58 Zestril FEEDTUBE 5 mg DAILY TANNER Administration Metoclopramide HCl 10 mg 03/05/20 00:16 Reglan IV Q6H PRN Nausea And Vomiting Metoprolol Tartrate 12.5 mg 03/09/20 10:00 03/09/20 09:58 Metoprolol FEEDTUBE 12.5 mg BID TANNER Administration Miscellaneous Medication 850 mg 03/09/20 10:00 Magnesium Oxide [Magnesium] FEEDTUBE DAILY TANNER Morphine Sulfate 2 mg 03/05/20 00:16 03/08/20 01:36 Morphine IV 2 mg Q4H PRN Administration Pain, Moderate (4-6) Simple Syrup 15 ml 03/06/20 13:18 Simple Syrup FEEDTUBE PRN PRN Hypoglycemia Simple Syrup 30 ml 03/06/20 13:18 Simple Syrup FEEDTUBE PRN PRN Hypoglycemia Sodium Bicarbonate 325 mg 03/06/20 13:18 Sodium Bicarbonate FEEDTUBE PRN PRN For Clogged Feeding Tube Sodium Chloride 10 ml 03/05/20 10:00 03/09/20 09:51 Sodium Chloride Flush Syringe 10 Ml IV 10 ml BID TANNER Administration Sodium Chloride 10 ml 03/05/20 00:16 Sodium Chloride Flush Syringe 10 Ml IV PRN PRN LINE FLUSH Sodium Chloride 50 ml 03/06/20 21:00 03/08/20 23:11 Nacl 0.9% IV 03/10/20 21:01 50 ml Q24HR@2100 TANNER Administration Sodium Hypochlorite 1 applic 03/08/20 10:00 03/08/20 23:26 Dakin's Half Strength TP 1 ml BID TANNER Administration Tramadol HCl 50 mg 03/09/20 08:27 Ultram FEEDTUBE Q6HR PRN Pain, Moderate (4-6) Nutrition/Malnutrition Assess - Dietary Evaluation Nutrition/Malnutrition Findings: Nutrition Notes Start: 03/05/20 09:48 Freq: Status: Active Protocol: Document 03/08/20 13:19 AT (Rec: 03/08/20 13:29 AT [email or web address]) Co-Sign 03/08/20 13:19 LP Nutrition Notes Initial or Follow up Reassessment Current Diagnosis Decubitus(Pressure Ulcer) Other Pertinent Diagnosis COVID-19, pneu, UTI, bedbound multiple PUs, hx CVA Current Diet TF, Jevity 1.2 at 55 mL/hr Labs/Tests BUN 37 Cr 0.5 BG 166 Pertinent Medications Decadron NS at 75 mL/hr Height 5 ft 8 in Weight 41 kg [place] Body Weight (kg) 70.00 BMI 13.7 Weight change and time frame Weight losst of 4.9% in 4 days Subjective/Other Information F/U for TF start/tolerance. Per RN, pt is at 45 mL/hr and will be at goal rate by 4:30PM . RN reports that pt is tolerating TF well without residuals. Pt is not receiving Yonathan BID. Percent of energy/protein needs met: 74%/71% Burn Absent Trauma Absent Current % PO Negligible Minimum of two criteria Yes Interpretation of Weight Loss (severe) >2% in 1 week Body Fat Depletion Mild depletion (non-severe) Muscle Mass Mild Depletion (non-severe) Reduced Tree Farmer Strength Measurably Reduced (severe) #2 Nutrition Diagnosis Increased nutrient needs ( specify in comment below) Diagnosis Progress(for reassessment Continues documentation) #1 Nutrition Diagnosis Malnutrition As Evidenced by Signs and Symptoms 4.9% weight loss x 4 days, decreasing BMI of 13.7 Diagnosis Progress(for reassessment Worsened documentation) Is patient on ventilator? No Is Patient Ambulatory and/or Out of Bed No REE-([facility]-confined to bed) 1385.532 Kcal/Kg value to use for calculation 43 Approximate Energy Requirements Using 1763 kcal/Kg Calculation Used for Recommendations Kcal/kg Additional Notes PRO needs: 51-62g (1.25-1.5 g/ kg) Fluid needs: 1 mL/kcal Nutrition Intervention Change Diet Order: Continue TF Nutrition Support: Jevity 1.2 at 55ml/hr Flush 90ml q4h once resolved Kcal 1,584 Protein (gm) 73 Fluid (mL) 1,065 Add Supplement/Snack (indicate name/kcal Yonathan BID via PEG /protein ) Provides kCal: 190 Provides Protein (gm) 5 Goal #1 Continued TF tolerance Goal #2 Weight gain and or maintenance Goal #3 Wound healing Goal #4 Meet at least 80% of estimated energy and protein needs via TF Anticipated Discharge Needs: TF Follow-Up By: 03/11/20 Additional Comments F/U for continued TF tolerance <NELY [email or web address] - Last Filed: 03/09/20 14:11> Hospitalist Physical - Constitutional Vitals: Temp Pulse Resp BP Pulse Ox 97.4 F L 89 18 133/91 96 03/09/20 03:36 03/09/20 09:58 03/09/20 03:36 03/09/20 09:58 03/09/20 03:36 Results - Labs CBC & Chem 7: 03/09/20 06:03 03/09/20 06:03 Labs: Laboratory Last Values WBC 4.2 K/mm3 (4.5-11.0) L 03/09/20 06:03 RBC 3.98 M/mm3 (3.65-5.03) 03/09/20 06:03 Hgb 11.2 gm/dl (11.8-15.2) L 03/09/20 06:03 Hct 35.7 % (35.5-45.6) D 03/09/20 06:03 MCV 90 fl (84-94) 03/09/20 06:03 MCH 28 pg (28-32) 03/09/20 06:03 MCHC 32 % (32-34) 03/09/20 06:03 RDW 17.0 % (13.2-15.2) H 03/09/20 06:03 Plt Count 358 K/mm3 (140-440) 03/09/20 06:03 Lymph % (Auto) 18.6 % (13.4-35.0) 03/09/20 06:03 [place] % (Auto) 5.4 % (0.0-7.3) 03/09/20 06:03 Eos % (Auto) 0.1 % (0.0-4.3) 03/09/20 06:03 Baso % (Auto) 0.1 % (0.0-1.8) 03/09/20 06:03 Lymph # (Auto) 0.8 K/mm3 (1.2-5.4) L 03/09/20 06:03 [place] # (Auto) 0.2 K/mm3 (0.0-0.8) 03/09/20 06:03 Eos # (Auto) 0.0 K/mm3 (0.0-0.4) 03/09/20 06:03 Baso # (Auto) 0.0 K/mm3 (0.0-0.1) 03/09/20 06:03 Seg Neutrophils % 75.8 % (40.0-70.0) H 03/09/20 06:03 Seg Neutrophils # 3.2 K/mm3 (1.8-7.7) 03/09/20 06:03 PT 18.9 Sec. (12.2-14.9) H 03/06/20 05:21 INR 1.58 (0.87-1.13) H 03/06/20 05:21 D-Dimer 583.93 ng/mlDDU (0-234) H 03/08/20 05:31 Sodium 141 mmol/L (137-145) 03/09/20 06:03 Potassium 4.7 mmol/L (3.6-5.0) D 03/09/20 06:03 Chloride 105.9 mmol/L (98-107) 03/09/20 06:03 Carbon Dioxide 25 mmol/L (22-30) 03/09/20 06:03 Anion Gap 15 mmol/L 03/09/20 06:03 BUN 27 mg/dL (9-20) H 03/09/20 06:03 Creatinine 0.4 mg/dL (0.8-1.3) L 03/09/20 06:03 Estimated GFR > 60 ml/min 03/09/20 06:03 BUN/Creatinine Ratio 68 % 03/09/20 06:03 Glucose 102 mg/dL (75-100) H 03/09/20 06:03 POC Glucose 110 mg/dL (70-105) H 03/09/20 05:13 Lactic Acid 0.90 mmol/L (0.7-2.0) 03/05/20 06:09 Calcium 8.2 mg/dL (8.4-10.2) L 03/09/20 06:03 Ferritin 1603.0 ng/mL (30.0-300.0) H 03/08/20 05:31 Total Bilirubin 0.20 mg/dL (0.1-1.2) 03/09/20 06:03 AST 53 units/L (5-40) H 03/09/20 06:03 ALT 56 units/L (7-56) 03/09/20 06:03 Alkaline Phosphatase 78 units/L (35-129) 03/09/20 06:03 Lactate Dehydrogenase 234 units/L (91-180) H 03/08/20 05:31 C-Reactive Protein 8.50 mg/dL (0.00-1.30) H 03/08/20 05:31 Total Protein 6.5 g/dL (6.3-8.2) 03/09/20 06:03 Albumin 2.2 g/dL (3.9-5) L 03/09/20 06:03 Albumin/Globulin Ratio 0.5 % 03/09/20 06:03 Procalcitonin 0.51 ng/mL (<0.15) 03/06/20 05:21 Urine Color Vicki (Yellow) 03/04/20 23:10 Urine Turbidity Slightly-cloudy (Clear) 03/04/20 23:10 Urine pH 8.0 (5.0-7.0) H 03/04/20 23:10 Ur Specific [place] 1.020 (1.003-1.030) 03/04/20 23:10 Urine Protein 100 mg/dl mg/dL (Negative) 03/04/20 23:10 Urine Glucose (UA) Neg mg/dL (Negative) 03/04/20 23:10 Urine Ketones Neg mg/dL (Negative) 03/04/20 23:10 Urine Blood Mod (Negative) 03/04/20 23:10 Urine Nitrite Neg (Negative) 03/04/20 23:10 Urine Bilirubin Neg (Negative) 03/04/20 23:10 Urine Urobilinogen 4.0 mg/dL (<2.0) 03/04/20 23:10 Ur Leukocyte Esterase Mod (Negative) 03/04/20 23:10 Urine WBC (Auto) 154.0 /HPF (0.0-6.0) H 03/04/20 23:10 Urine RBC (Auto) > 182.0 /HPF (0.0-6.0) 03/04/20 23:10 Urine Bacteria (Auto) 1+ /HPF (Negative) 03/04/20 23:10 Urine Mucus Few /HPF 03/04/20 23:10 Coronavirus (PCR) Positive (Negative) A 03/05/20 10:59 Microbiology: Microbiology 03/04/20 21:37 Peripheral/Venous Blood Culture - Preliminary NO GROWTH AFTER 4 DAYS 03/04/20 21:37 Peripheral/Venous Blood Culture - Preliminary NO GROWTH AFTER 4 DAYS Deutsch/IV: Voiding Method Diaper IV Catheter Type [Right Upper INT / Saline Lock arm] IV Catheter Type [Right Peripheral IV Antecubital] Active Medications - Current Medications Current Medications: Generic Name Dose Route Start Last Admin Trade Name Freq PRN Reason Stop Dose Admin Acetaminophen 650 mg 03/05/20 00:16 Tylenol PO Q4H PRN Pain MILD(1-3)/Fever >100.5/IBARRA Albuterol 2.5 mg 03/06/20 13:33 Proventil IH Q4HRT PRN Shortness Of Breath Lipase/Protease/Amylase 1 each 03/06/20 13:18 Pancreaze 10,500 Unit FEEDTUBE PRN PRN For Clogged Feeding Tube Ascorbic Acid 500 mg 03/09/20 10:00 03/09/20 09:49 Vitamin C FEEDTUBE 500 mg DAILY TANNER Administration Atorvastatin Calcium 40 mg 03/09/20 22:00 Lipitor FEEDTUBE QHS TANNER Calcium Carbonate/Glycine 625 mg 03/09/20 10:00 03/09/20 09:50 Calcium Carbonate FEEDTUBE 625 mg DAILY TANNER Administration Dexamethasone 6 mg 03/09/20 10:00 03/09/20 09:48 Decadron IV 03/13/20 12:00 6 mg Q24HR TANNER Administration Dextrose 50 ml 03/06/20 22:08 D50w (25gm) Syringe IV Q30MIN PRN Hypoglycemia Protocol Doxazosin Mesylate 1 mg 03/09/20 22:00 Cardura FEEDTUBE QHS TANNER Heparin Sodium (Porcine) 5,000 unit 03/05/20 06:00 03/09/20 05:27 Heparin SUB-Q 5,000 unit Q8HR TANNER Administration REMDESIVIR 100 mg/ Sodium 250 mls @ 500 mls/hr 03/07/20 21:00 03/08/20 23:10 Chloride IV 03/10/20 21:29 500 mls/hr Q24HR@2100 TANNER Administration Labetalol HCl 10 mg 03/09/20 06:22 03/09/20 06:46 Labetalol IV 10 mg Q6HR PRN Administration Blood Pressure Lansoprazole 30 mg 03/09/20 10:00 03/09/20 09:49 Prevacid Solutab FEEDTUBE 30 mg QDAY TANNER Administration Lisinopril 5 mg 03/09/20 10:00 03/09/20 09:58 Zestril FEEDTUBE 5 mg DAILY TANNER Administration Metoclopramide HCl 10 mg 03/05/20 00:16 Reglan IV Q6H PRN Nausea And Vomiting Metoprolol Tartrate 12.5 mg 03/09/20 10:00 03/09/20 09:58 Metoprolol FEEDTUBE 12.5 mg BID TANNER Administration Miscellaneous Medication 850 mg 03/09/20 10:00 Magnesium Oxide [Magnesium] FEEDTUBE DAILY TANNER Morphine Sulfate 2 mg 03/05/20 00:16 03/08/20 01:36 Morphine IV 2 mg Q4H PRN Administration Pain, Moderate (4-6) Simple Syrup 15 ml 03/06/20 13:18 Simple Syrup FEEDTUBE PRN PRN Hypoglycemia Simple Syrup 30 ml 03/06/20 13:18 Simple Syrup FEEDTUBE PRN PRN Hypoglycemia Sodium Bicarbonate 325 mg 03/06/20 13:18 Sodium Bicarbonate FEEDTUBE PRN PRN For Clogged Feeding Tube Sodium Chloride 10 ml 03/05/20 10:00 03/09/20 09:51 Sodium Chloride Flush Syringe 10 Ml IV 10 ml BID TANNER Administration Sodium Chloride 10 ml 03/05/20 00:16 Sodium Chloride Flush Syringe 10 Ml IV PRN PRN LINE FLUSH Sodium Chloride 50 ml 03/06/20 21:00 03/08/20 23:11 Nacl 0.9% IV 03/10/20 21:01 50 ml Q24HR@2100 TANNER Administration Sodium Hypochlorite 1 applic 03/08/20 10:00 03/08/20 23:26 Dakin's Half Strength TP 1 ml BID TANNER Administration Tramadol HCl 50 mg 03/09/20 08:27 Ultram FEEDTUBE Q6HR PRN Pain, Moderate (4-6) Nutrition/Malnutrition Assess - Dietary Evaluation Nutrition/Malnutrition Findings: Nutrition Notes Start: 03/05/20 09:48 Freq: Status: Active Protocol: Document 03/08/20 13:19 AT (Rec: 03/08/20 13:29 AT [email or web address]) Co-Sign 03/08/20 13:19 LP Nutrition Notes Initial or Follow up Reassessment Current Diagnosis Decubitus(Pressure Ulcer) Other Pertinent Diagnosis COVID-19, pneu, UTI, bedbound multiple PUs, hx CVA Current Diet TF, Jevity 1.2 at 55 mL/hr Labs/Tests BUN 37 Cr 0.5 BG 166 Pertinent Medications Decadron NS at 75 mL/hr Height 5 ft 8 in Weight 41 kg [place] Body Weight (kg) 70.00 BMI 13.7 Weight change and time frame Weight losst of 4.9% in 4 days Subjective/Other Information F/U for TF start/tolerance. Per RN, pt is at 45 mL/hr and will be at goal rate by 4:30PM . RN reports that pt is tolerating TF well without residuals. Pt is not receiving Yonathan BID. Percent of energy/protein needs met: 74%/71% Burn Absent Trauma Absent Current % PO Negligible Minimum of two criteria Yes Interpretation of Weight Loss (severe) >2% in 1 week Body Fat Depletion Mild depletion (non-severe) Muscle Mass Mild Depletion (non-severe) Reduced Tree Farmer Strength Measurably Reduced (severe) #2 Nutrition Diagnosis Increased nutrient needs ( specify in comment below) Diagnosis Progress(for reassessment Continues documentation) #1 Nutrition Diagnosis Malnutrition As Evidenced by Signs and Symptoms 4.9% weight loss x 4 days, decreasing BMI of 13.7 Diagnosis Progress(for reassessment Worsened documentation) Is patient on ventilator? No Is Patient Ambulatory and/or Out of Bed No REE-([facility]-confined to bed) 1385.532 Kcal/Kg value to use for calculation 43 Approximate Energy Requirements Using 1763 kcal/Kg Calculation Used for Recommendations Kcal/kg Additional Notes PRO needs: 51-62g (1.25-1.5 g/ kg) Fluid needs: 1 mL/kcal Nutrition Intervention Change Diet Order: Continue TF Nutrition Support: Jevity 1.2 at 55ml/hr Flush 90ml q4h once resolved Kcal 1,584 Protein (gm) 73 Fluid (mL) 1,065 Add Supplement/Snack (indicate name/kcal Yonathan BID via PEG /protein ) Provides kCal: 190 Provides Protein (gm) 5 Goal #1 Continued TF tolerance Goal #2 Weight gain and or maintenance Goal #3 Wound healing Goal #4 Meet at least 80% of estimated energy and protein needs via TF Anticipated Discharge Needs: TF Follow-Up By: 03/11/20 Additional Comments F/U for continued TF tolerance
[2020-03-09] MEDS: SODIUM HYPOCHLORITE, DAKIN'S 1/2 STRENGTH (0.25%) 473 ML TOPICAL SOLN TP SCH ×2 (17:47→21:22)
[2020-03-09] MEDS: SODIUM CHLORIDE 0.9% 50 ML IVPB IV SCH (21:19)
[2020-03-09] MEDS: REMDESIVIR 100 MG in SODIUM CHLORIDE 0.9% 250ML 250 ML IV SCH (21:20)
[2020-03-09] MEDS: DOXAZOSIN 1 MG TAB FEEDTUBE SCH (21:35)
[2020-03-10] MEDS: HEPARIN 5,000 UNIT/1 ML VIAL SUB-Q SCH ×3 (06:00→23:55)
[2020-03-10 06:59] LABS: C-Reactive Protein 5.8 mg/dL (0.00-1.30)
[2020-03-10] MEDS: METOPROLOL TARTRATE 25 MG TAB FEEDTUBE SCH (09:19)
[2020-03-10] MEDS: CALCIUM CARBONATE 1250 MG/5 ML ORAL LIQD FEEDTUBE SCH (09:21)
[2020-03-10] MEDS: LANSOPRAZOLE 30 MG SOLUTAB FEEDTUBE SCH (09:22)
[2020-03-10] MEDS: dexAMETHasone 4 MG/ML VIAL IV SCH (09:22)
[2020-03-10] MEDS: ASCORBIC ACID 500 MG TAB FEEDTUBE SCH (09:23)
[2020-03-10] MEDS: LISINOPRIL 5 MG TAB FEEDTUBE SCH (09:23)
--- NOTE | 2020-03-10 09:45 | Progress Note ---
Assessment and Plan Cultures: Blood culture 03/04/2020 no growth today SARS CoV2 PCR positive Assessment: 69 years old male with history of CVA, bedbound, resident of retirement, admitted on secondary to shortness of breath and hypoxia at the retirement, recent COVID-19 test positive: #Severe sepsis: Present on admission with low-grade fever, tachycardia, hypoxia, elevated LFTs, elevated lactate, likely due to bilateral pneumonia +/- UTI. #Severe COVID pneumonia: Chest x-ray with bilateral airspace disease. Elevated markers. D-dimer 1139. Venous ultrasound without any DVT. VQ scan indeterminate. #Acute hypoxia: Remains on room air. #Elevated LFTs: from COVID #Status post PEG #UTI #Extensive decubiti sacral and back; not infected Recommendations: -Noted sats down to 76% close monitoring -Continue dexamethasone 6 mg IV/PO daily for 10 days - D4 of 10 -Continue remdesivir total 5 days - D4 of 5 -Monitor inflammatory markers - ferritin, Ddimer, CRP, LDH -Completed ceftriaxone for 5 days and azithromycin for 3 days -Monitor liver function test on Remdesivir -Continue anticoagulation per System Protocol -Prone positioning as possible -Follow-up urine culture -Offloading -Continue wound care Guarded prognosis, discuss goals of care with family All laboratory, cultures and imaging were reviewed. Will follow Clara Enrique MD Infectious Diseases Repacker [facility] M [phone] O [phone] Subjective Principal diagnosis: COVID-19 Interval history: Patient remains on room air. Sats dropped 76% Objective - Constitutional Vitals: Vital Signs Temp Pulse Resp BP Pulse Ox 98.0 F 107 H 20 127/96 90 03/10/20 05:18 03/10/20 05:18 03/10/20 05:18 03/10/20 05:18 03/10/20 05:18 Temperature -Last 24 Hours Temperature 98.0 F Temperature 97.6 F Temperature 98.0 F - Labs CBC & Chem 7: 03/09/20 06:03 03/09/20 06:03 Labs: Abnormal lab results 03/09/20 03/10/20 03/10/20 Range/Units 15:56 04:00 05:16 D-Dimer 234.66 H (0-234) ng/mlDDU POC Glucose 121 H (70-105) mg/dL Ferritin 1076.0 H (30.0-300.0) ng/mL Lactate Dehydrogenase (91-180) units/L C-Reactive Protein (0.00-1.30) mg/dL 03/10/20 Range/Units 05:16 D-Dimer (0-234) ng/mlDDU POC Glucose (70-105) mg/dL Ferritin (30.0-300.0) ng/mL Lactate Dehydrogenase 276 H (91-180) units/L C-Reactive Protein 5.80 H (0.00-1.30) mg/dL
--- NOTE | 2020-03-10 13:35 | Cat Scan Report ---
CTA chest with contrast INDICATION : MAIN. Acute generalized chest pain TECHNIQUE: Axial imaging performed through the chest, with contrast bolus timing set to maximize opa cification of the pulmonary arteries. 3-plane MIP reformatted images were obtained. All CT scans at this location are performed using CT dose reduction for ALARA by means of automated exposure control. 100 mL of intravenous contrast administered. COMPARISON: Perfusion scan from 03/07/2020 FINDINGS: Bolus: Contrast bolus timing is adequate. PTE: No filling defect is present to suggest PTE. Mediastinum: Heart and great vessels appear normal. No pathologic mediastinal adenopathy. Lungs: There is severe emphysema with patchy airspace disease in the left greater than right lung ba ses. Upper abdomen: Limited imaging of the upper abdomen shows nothing acute. Bones: Degenerative changes in the spine with nothing acute. IMPRESSION: 1. Negative for PTE. 2. Severe emphysema with left basilar pneumonia. Signer Name: Jalen Nieves MD Signed: 03/10/2020 1:30 PM Workstation Name: [id number]
--- NOTE | 2020-03-10 13:40 | Progress Note ---
Assessment and Plan - Patient Problems (1) Severe sepsis Current Visit: Yes Status: Acute Plan to address problem: Presented with lactic acidosis, UTI on urine analysis, CXR showed patchy airspace disease with emphysema, hypoxia, tachycardia, tachypnea Infectious disease consulted S/p antibiotic therapy for COVID-19 pneumonia On IV antibiotic therapy for urinary tract infection 03/04 blood culture x2 with no growth after 72 hours Trend CBC and monitor vital signs (2) COVID-19 Current Visit: Yes Status: Acute Plan to address problem: 03/05 COVID-19 PCR positive S/p antibiotic therapy which was discontinued given normal procalcitonin Infectious disease consulted Steroid therapy for 10 days 03/07 remdesivir therapy initiated Anticoagulation per protocol Trend inflammatory markers Supplemental oxygen as needed Prone to sleep as needed Pulmonary hygiene We will likely need to DC with Eliquis 12.5 twice daily for 10/28 days (3) Bilateral pneumonia Current Visit: Yes Status: Acute Qualifiers: Pneumonia type: due to unspecified organism Lung location: lower lobe of lung Qualified Code(s): J18.9 - Pneumonia, unspecified organism Plan to address problem: Presented with pneumonia on CXR S/p antibiotic therapy Infectious disease consulted Supplemental oxygen as needed Pulmonary hygiene (4) Acute respiratory distress Current Visit: Yes Status: Acute Plan to address problem: Presented with hypoxia on room air Supplemental oxygen as needed Pulmonary hygiene (5) Transaminitis Current Visit: Yes Status: Acute Plan to address problem: Presented with elevated LFTs of AST 168, ALT 107, alkaline phos 83 Trend LFTs Patient is on remdesivir therapy started on 03/07 Monitor LFTs while on remdesivir Secondary to COVID-19 infection LFTs are trending down and mostly resolved (6) Elevated d-dimer Current Visit: Yes Status: Acute Plan to address problem: Patient presented with a D-dimer of 1139, 03/06 D-dimer 903, 03/08 D-dimer 583 Anticoagulation per COVID-19 protocol 03/05 bilateral lower extremity Doppler ultrasound negative for DVT/SVT 03/07 VQ scan indeterminate for pulmonary embolism Unable to get CTA chest because of inability to obtain consent 03/10 CTA chest shows severe emphysema with left basilar pneumonia and no pulmonary embolism (7) UTI (urinary tract infection) Current Visit: Yes Status: Acute Plan to address problem: Presented with urinary tract infection on urinalysis Antibiotic therapy Trend CBC Supportive care (8) Wounds, multiple Current Visit: Yes Status: Acute Plan to address problem: WOCN consult Patient is a [facility] patient Wound care per nursing (9) CVA, old, ataxia Current Visit: Yes Status: Chronic Plan to address problem: Supportive care Patient has left upper extremity contracture and aphasia Aspiration/fall precautions S/p PEG (10) DVT prophylaxis Current Visit: Yes Status: Acute Plan to address problem: Heparin subcu SCDs to bilateral tremors while in bed History Interval history: This is a 69-year-old male who suffered from a CVA and is bedbound, resident of [facility] who presented to the emergency department on 03/06 with shortness of breath and hypoxia. His SPO2 was 85% on room air and he tested positive for COVID-19 at his [facility] recently. Upon arrival patient showed sepsis, elevated COVID-19 markers, lactic acidosis, hyperkalemia, dehydration, hyponatremia, borderline hyperglycemia and urinary tract infection and his chest x-ray showed mild patchy parenchymal disease in the left lower lung likely related to pneumonia and emphysema. Infectious disease was consulted. Patient patient is on room air. No acute events reported overnight however per charting patient's SPO2 decreased to the 80s however the patient still remains on room air with SPO2 in the low 90s. At the time of my examination patient is on "Ventimask" which is hooked up to 4 L of oxygen. This morning we ordered a CTA with the patient given hypoxemia and elevated D-dimers. CTA chest shows severe emphysema with left basilar pneumonia and no pulmonary embolism 03/06: Hypertonic solution started, steroids, remdesivir 03/07: tube feeding started, VQ scan showed indeterminate for the presence of pulmonary embolism, venous duplex bilateral lower extremity showed no DVT or SVT, remdesivir therapy started 03/08: Continue dexamethasone and remdesivir, patient is on room air 03/09: Patient is on day 3/5 of his remdesivir therapy. Hospitalist Physical - Constitutional Vitals: Temp Pulse Resp BP Pulse Ox 98.0 F 107 H 20 127/96 90 03/10/20 05:18 03/10/20 05:18 03/10/20 05:18 03/10/20 05:18 03/10/20 05:18 General appearance: Present: no acute distress, cachectic, other (Contracted) - EENT Eyes: Present: PERRL, EOM intact ENT: hearing decreased, poor dentition - Neck Neck: Present: normal ROM - Respiratory Respiratory effort: normal Respiratory: bilateral: diminished - Cardiovascular Rhythm: regular Heart Sounds: Present: S1 & S2. Absent: systolic murmur, diastolic murmur - Extremities Extremities: no ischemia, pulses intact, pulses symmetrical, No edema, normal te mperature, normal color Extremity abnormal: deformity (Contracted upper extremity) Peripheral Pulses: within normal limits - Abdominal General gastrointestinal: soft, non-tender, normal bowel sounds - Integumentary Integumentary: Present: clear, warm, dry - Psychiatric Psychiatric: cooperative - Neurologic Neurologic: CNII-XII intact, no focal deficits Results - Labs CBC & Chem 7: 03/09/20 06:03 03/09/20 06:03 Labs: Laboratory Last Values WBC 4.2 K/mm3 (4.5-11.0) L 03/09/20 06:03 RBC 3.98 M/mm3 (3.65-5.03) 03/09/20 06:03 Hgb 11.2 gm/dl (11.8-15.2) L 03/09/20 06:03 Hct 35.7 % (35.5-45.6) D 03/09/20 06:03 MCV 90 fl (84-94) 03/09/20 06:03 MCH 28 pg (28-32) 03/09/20 06:03 MCHC 32 % (32-34) 03/09/20 06:03 RDW 17.0 % (13.2-15.2) H 03/09/20 06:03 Plt Count 358 K/mm3 (140-440) 03/09/20 06:03 Lymph % (Auto) 18.6 % (13.4-35.0) 03/09/20 06:03 [place] % (Auto) 5.4 % (0.0-7.3) 03/09/20 06:03 Eos % (Auto) 0.1 % (0.0-4.3) 03/09/20 06:03 Baso % (Auto) 0.1 % (0.0-1.8) 03/09/20 06:03 Lymph # (Auto) 0.8 K/mm3 (1.2-5.4) L 03/09/20 06:03 [place] # (Auto) 0.2 K/mm3 (0.0-0.8) 03/09/20 06:03 Eos # (Auto) 0.0 K/mm3 (0.0-0.4) 03/09/20 06:03 Baso # (Auto) 0.0 K/mm3 (0.0-0.1) 03/09/20 06:03 Seg Neutrophils % 75.8 % (40.0-70.0) H 03/09/20 06:03 Seg Neutrophils # 3.2 K/mm3 (1.8-7.7) 03/09/20 06:03 PT 18.9 Sec. (12.2-14.9) H 03/06/20 05:21 INR 1.58 (0.87-1.13) H 03/06/20 05:21 D-Dimer 234.66 ng/mlDDU (0-234) H 03/10/20 04:00 Sodium 141 mmol/L (137-145) 03/09/20 06:03 Potassium 4.7 mmol/L (3.6-5.0) D 03/09/20 06:03 Chloride 105.9 mmol/L (98-107) 03/09/20 06:03 Carbon Dioxide 25 mmol/L (22-30) 03/09/20 06:03 Anion Gap 15 mmol/L 03/09/20 06:03 BUN 27 mg/dL (9-20) H 03/09/20 06:03 Creatinine 0.4 mg/dL (0.8-1.3) L 03/09/20 06:03 Estimated GFR > 60 ml/min 03/09/20 06:03 BUN/Creatinine Ratio 68 % 03/09/20 06:03 Glucose 102 mg/dL (75-100) H 03/09/20 06:03 POC Glucose 87 mg/dL (70-105) 03/10/20 05:14 Lactic Acid 0.90 mmol/L (0.7-2.0) 03/05/20 06:09 Calcium 8.2 mg/dL (8.4-10.2) L 03/09/20 06:03 Magnesium 1.80 mg/dL (1.7-2.3) 03/10/20 05:16 Ferritin 1076.0 ng/mL (30.0-300.0) H 03/10/20 05:16 Total Bilirubin 0.20 mg/dL (0.1-1.2) 03/09/20 06:03 AST 53 units/L (5-40) H 03/09/20 06:03 ALT 56 units/L (7-56) 03/09/20 06:03 Alkaline Phosphatase 78 units/L (35-129) 03/09/20 06:03 Lactate Dehydrogenase 276 units/L (91-180) H 03/10/20 05:16 C-Reactive Protein 5.80 mg/dL (0.00-1.30) H 03/10/20 05:16 Total Protein 6.5 g/dL (6.3-8.2) 03/09/20 06:03 Albumin 2.2 g/dL (3.9-5) L 03/09/20 06:03 Albumin/Globulin Ratio 0.5 % 03/09/20 06:03 Procalcitonin 0.51 ng/mL (<0.15) 03/06/20 05:21 Urine Color Vicki (Yellow) 03/04/20 23:10 Urine Turbidity Slightly-cloudy (Clear) 03/04/20 23:10 Urine pH 8.0 (5.0-7.0) H 03/04/20 23:10 Ur Specific [place] 1.020 (1.003-1.030) 03/04/20 23:10 Urine Protein 100 mg/dl mg/dL (Negative) 03/04/20 23:10 Urine Glucose (UA) Neg mg/dL (Negative) 03/04/20 23:10 Urine Ketones Neg mg/dL (Negative) 03/04/20 23:10 Urine Blood Mod (Negative) 03/04/20 23:10 Urine Nitrite Neg (Negative) 03/04/20 23:10 Urine Bilirubin Neg (Negative) 03/04/20 23:10 Urine Urobilinogen 4.0 mg/dL (<2.0) 03/04/20 23:10 Ur Leukocyte Esterase Mod (Negative) 03/04/20 23:10 Urine WBC (Auto) 154.0 /HPF (0.0-6.0) H 03/04/20 23:10 Urine RBC (Auto) > 182.0 /HPF (0.0-6.0) 03/04/20 23:10 Urine Bacteria (Auto) 1+ /HPF (Negative) 03/04/20 23:10 Urine Mucus Few /HPF 03/04/20 23:10 Coronavirus (PCR) Positive (Negative) A 03/05/20 10:59 Microbiology: Microbiology 03/04/20 21:37 Peripheral/Venous Blood Culture - Final NO GROWTH AFTER 5 DAYS 03/04/20 21:37 Peripheral/Venous Blood Culture - Final NO GROWTH AFTER 5 DAYS Deutsch/IV: Voiding Method Incontinent IV Catheter Type [Right Upper INT / Saline Lock arm] IV Catheter Type [Right Peripheral IV Antecubital] Active Medications - Current Medications Current Medications: Generic Name Dose Route Start Last Admin Trade Name Freq PRN Reason Stop Dose Admin Acetaminophen 650 mg 03/05/20 00:16 Tylenol PO Q4H PRN Pain MILD(1-3)/Fever >100.5/IBARRA Albuterol 2.5 mg 03/06/20 13:33 Proventil IH Q4HRT PRN Shortness Of Breath Lipase/Protease/Amylase 1 each 03/06/20 13:18 Pancreaze 10,500 Unit FEEDTUBE PRN PRN For Clogged Feeding Tube Ascorbic Acid 500 mg 03/09/20 10:00 03/10/20 09:23 Vitamin C FEEDTUBE 500 mg DAILY TANNER Administration Atorvastatin Calcium 40 mg 03/09/20 22:00 03/09/20 21:21 Lipitor FEEDTUBE 40 mg QHS TANNER Administration Calcium Carbonate/Glycine 625 mg 03/09/20 10:00 03/10/20 09:21 Calcium Carbonate FEEDTUBE 625 mg DAILY TANNER Administration Dexamethasone 6 mg 03/09/20 10:00 03/10/20 09:22 Decadron IV 03/13/20 12:00 6 mg Q24HR TANNER Administration Dextrose 50 ml 03/06/20 22:08 D50w (25gm) Syringe IV Q30MIN PRN Hypoglycemia Protocol Doxazosin Mesylate 1 mg 03/09/20 22:00 03/09/20 21:35 Cardura FEEDTUBE 1 mg QHS TANNER Administration Heparin Sodium (Porcine) 5,000 unit 03/05/20 06:00 03/10/20 06:00 Heparin SUB-Q 5,000 unit Q8HR TANNER Administration REMDESIVIR 100 mg/ Sodium 250 mls @ 500 mls/hr 03/07/20 21:00 03/09/20 21:20 Chloride IV 03/10/20 21:29 500 mls/hr Q24HR@2100 TANNER Administration Labetalol HCl 10 mg 03/09/20 06:22 03/09/20 06:46 Labetalol IV 10 mg Q6HR PRN Administration Blood Pressure Lansoprazole 30 mg 03/09/20 10:00 03/10/20 09:22 Prevacid Solutab FEEDTUBE 30 mg QDAY TANNER Administration Lisinopril 5 mg 03/09/20 10:00 03/10/20 09:23 Zestril FEEDTUBE 5 mg DAILY TANNER Administration Metoclopramide HCl 10 mg 03/05/20 00:16 Reglan IV Q6H PRN Nausea And Vomiting Metoprolol Tartrate 12.5 mg 03/09/20 10:00 03/10/20 09:19 Metoprolol FEEDTUBE 12.5 mg BID TANNER Administration Miscellaneous Medication 850 mg 03/09/20 10:00 Magnesium Oxide [Magnesium] FEEDTUBE DAILY TANNER Morphine Sulfate 2 mg 03/05/20 00:16 03/08/20 01:36 Morphine IV 2 mg Q4H PRN Administration Pain, Moderate (4-6) Simple Syrup 15 ml 03/06/20 13:18 Simple Syrup FEEDTUBE PRN PRN Hypoglycemia Simple Syrup 30 ml 03/06/20 13:18 Simple Syrup FEEDTUBE PRN PRN Hypoglycemia Sodium Bicarbonate 325 mg 03/06/20 13:18 Sodium Bicarbonate FEEDTUBE PRN PRN For Clogged Feeding Tube Sodium Chloride 10 ml 03/05/20 10:00 03/10/20 09:22 Sodium Chloride Flush Syringe 10 Ml IV 10 ml BID TANNER Administration Sodium Chloride 10 ml 03/05/20 00:16 Sodium Chloride Flush Syringe 10 Ml IV PRN PRN LINE FLUSH Sodium Chloride 50 ml 03/06/20 21:00 03/09/20 21:19 Nacl 0.9% IV 03/10/20 21:01 50 ml Q24HR@2100 TANNER Administration Sodium Hypochlorite 1 applic 03/08/20 10:00 03/09/20 21:22 Dakin's Half Strength TP 1 ml BID TANNER Administration Tramadol HCl 50 mg 03/09/20 08:27 Ultram FEEDTUBE Q6HR PRN Pain, Moderate (4-6) Nutrition/Malnutrition Assess - Dietary Evaluation Nutrition/Malnutrition Findings: Nutrition Notes Start: 03/05/20 09:48 Freq: Status: Active Protocol: Document 03/08/20 13:19 AT (Rec: 03/08/20 13:29 AT [id number]) Co-Sign 03/08/20 13:19 LP Nutrition Notes Initial or Follow up Reassessment Current Diagnosis Decubitus(Pressure Ulcer) Other Pertinent Diagnosis COVID-19, pneu, UTI, bedbound multiple PUs, hx CVA Current Diet TF, Jevity 1.2 at 55 mL/hr Labs/Tests BUN 37 Cr 0.5 BG 166 Pertinent Medications Decadron NS at 75 mL/hr Height 5 ft 8 in Weight 41 kg [place] Body Weight (kg) 70.00 BMI 13.7 Weight change and time frame Weight losst of 4.9% in 4 days Subjective/Other Information F/U for TF start/tolerance. Per RN, pt is at 45 mL/hr and will be at goal rate by 4:30PM . RN reports that pt is tolerating TF well without residuals. Pt is not receiving Yonathan BID. Percent of energy/protein needs met: 74%/71% Burn Absent Trauma Absent Current % PO Negligible Minimum of two criteria Yes Interpretation of Weight Loss (severe) >2% in 1 week Body Fat Depletion Mild depletion (non-severe) Muscle Mass Mild Depletion (non-severe) Reduced Program Scheduler Strength Measurably Reduced (severe) #2 Nutrition Diagnosis Increased nutrient needs ( specify in comment below) Diagnosis Progress(for reassessment Continues documentation) #1 Nutrition Diagnosis Malnutrition As Evidenced by Signs and Symptoms 4.9% weight loss x 4 days, decreasing BMI of 13.7 Diagnosis Progress(for reassessment Worsened documentation) Is patient on ventilator? No Is Patient Ambulatory and/or Out of Bed No REE-([facility]-confined to bed) 1385.532 Kcal/Kg value to use for calculation 43 Approximate Energy Requirements Using 1763 kcal/Kg Calculation Used for Recommendations Kcal/kg Additional Notes PRO needs: 51-62g (1.25-1.5 g/ kg) Fluid needs: 1 mL/kcal Nutrition Intervention Change Diet Order: Continue TF Nutrition Support: Jevity 1.2 at 55ml/hr Flush 90ml q4h once resolved Kcal 1,584 Protein (gm) 73 Fluid (mL) 1,065 Add Supplement/Snack (indicate name/kcal Yonathan BID via PEG /protein ) Provides kCal: 190 Provides Protein (gm) 5 Goal #1 Continued TF tolerance Goal #2 Weight gain and or maintenance Goal #3 Wound healing Goal #4 Meet at least 80% of estimated energy and protein needs via TF Anticipated Discharge Needs: TF Follow-Up By: 03/11/20 Additional Comments F/U for continued TF tolerance
[2020-03-10] MEDS: SODIUM HYPOCHLORITE, DAKIN'S 1/2 STRENGTH (0.25%) 473 ML TOPICAL SOLN TP SCH ×2 (16:02→23:58)
[2020-03-10] MEDS: MORPHINE 2 MG/1 ML INJ IV PRN (23:52)
[2020-03-10] MEDS: REMDESIVIR 100 MG in SODIUM CHLORIDE 0.9% 250ML 250 ML IV SCH (23:52)
[2020-03-10] MEDS: SODIUM CHLORIDE 0.9% 50 ML IVPB IV SCH (23:57)
[2020-03-11] MEDS: METOPROLOL TARTRATE 25 MG TAB FEEDTUBE SCH ×3 (00:04→22:44)
[2020-03-11] MEDS: DOXAZOSIN 1 MG TAB FEEDTUBE SCH ×2 (00:07→22:42)
[2020-03-11] MEDS: HEPARIN 5,000 UNIT/1 ML VIAL SUB-Q SCH ×3 (05:41→22:43)
[2020-03-11] MEDS: CALCIUM CARBONATE 1250 MG/5 ML ORAL LIQD FEEDTUBE SCH (10:03)
[2020-03-11] MEDS: LISINOPRIL 5 MG TAB FEEDTUBE SCH (10:04)
[2020-03-11] MEDS: dexAMETHasone 4 MG/ML VIAL IV SCH (10:04)
[2020-03-11] MEDS: ASCORBIC ACID 500 MG TAB FEEDTUBE SCH (10:04)
[2020-03-11] MEDS: SODIUM HYPOCHLORITE, DAKIN'S 1/2 STRENGTH (0.25%) 473 ML TOPICAL SOLN TP SCH ×2 (10:05→22:43)
[2020-03-11] MEDS: LANSOPRAZOLE 30 MG SOLUTAB FEEDTUBE SCH (10:15)
--- NOTE | 2020-03-11 13:00 | Progress Note ---
Assessment and Plan Cultures: Blood culture 03/04/2020 no growth today SARS CoV2 PCR positive Assessment: 69 years old male with history of CVA, bedbound, resident of senior living, admitted on secondary to shortness of breath and hypoxia at the senior living, recent COVID-19 test positive: #Severe sepsis: Present on admission with low-grade fever, tachycardia, hypoxia, elevated LFTs, elevated lactate, likely due to bilateral pneumonia +/- UTI. #Severe COVID pneumonia: Chest x-ray with bilateral airspace disease. Elevated markers. D-dimer 1139. Venous ultrasound without any DVT. VQ scan indeterminate. CTA shows severe emphysema and left basilar pneumonia. No pulmonary embolism. #Acute hypoxia: Now on Venturi mask #Elevated LFTs: from COVID #Status post PEG #UTI #Extensive decubiti sacral and back; not infected Recommendations: -Continue dexamethasone 6 mg IV/PO daily for 10 days - D of 10 -Continue remdesivir total 5 days - D5 of 5 -Monitor inflammatory markers - ferritin, Ddimer, CRP, LDH -Completed ceftriaxone for 5 days and azithromycin for 3 days -Monitor liver function test on Remdesivir -Continue anticoagulation per System Protocol -Prone positioning as possible -Follow-up urine culture -Offloading -Continue wound care Guarded prognosis, discuss goals of care with family Will follow Clara Enrique MD Infectious Diseases Pharmaceutical Assistant [facility] M [phone] O [phone] Subjective Date of service: 03/11/20 Principal diagnosis: COVID-19 Interval history: Patient is now on Venturi mask, no fever Objective - Exam Narrative Exam: Physical Exam: reviewed ED and hospitalist notes, limited due to conservation of PPE and decrease risk of transmission. General appearance: limited due to conservation of PPE Eyes: limited due to conservation of PPE HENT: Atraumatic; limited due to conservation of PPE Lungs: limited due to conservation of PPE CV: limited due to conservation of PPE Abdomen: limited due to conservation of PPE Extremities: limited due to conservation of PPE Skin: limited due to conservation of PPE Psych: limited due to conservation of PPE Neuro: limited due to conservation of PPE - Constitutional Vitals: Vital Signs Temp Pulse Resp BP Pulse Ox 98.1 F 81 16 140/94 100 03/11/20 04:42 03/11/20 04:42 03/11/20 08:00 03/11/20 04:42 03/11/20 04:42 Temperature -Last 24 Hours Temperature 98.1 F Temperature 98.1 F Temperature 98.0 F - Labs CBC & Chem 7: 03/09/20 06:03 03/09/20 06:03 Labs: Abnormal lab results 03/10/20 03/11/20 03/11/20 Range/Units 23:26 06:17 12:07 POC Glucose 114 H 124 H 106 H (70-105) mg/dL
--- NOTE | 2020-03-11 17:08 | Progress Note ---
Assessment and Plan - Patient Problems (1) Severe sepsis Current Visit: Yes Status: Acute Plan to address problem: Presented with lactic acidosis, UTI on urine analysis, CXR showed patchy airspace disease with emphysema, hypoxia, tachycardia, tachypnea Infectious disease consulted S/p antibiotic therapy for COVID-19 pneumonia On IV antibiotic therapy for urinary tract infection 03/04 blood culture x2 with no growth after 72 hours Trend CBC and monitor vital signs (2) COVID-19 Current Visit: Yes Status: Acute Plan to address problem: 03/05 COVID-19 PCR positive S/p antibiotic therapy which was discontinued given normal procalcitonin Infectious disease consulted Steroid therapy for 10 days 03/07 remdesivir therapy initiated Anticoagulation per protocol Trend inflammatory markers Supplemental oxygen as needed Prone to sleep as needed Pulmonary hygiene We will likely need to DC with Eliquis 12.5 twice daily for 10/28 days (3) Bilateral pneumonia Current Visit: Yes Status: Acute Qualifiers: Pneumonia type: due to unspecified organism Lung location: lower lobe of lung Qualified Code(s): J18.9 - Pneumonia, unspecified organism Plan to address problem: Presented with pneumonia on CXR S/p antibiotic therapy Infectious disease consulted Supplemental oxygen as needed Pulmonary hygiene (4) Acute respiratory failure Current Visit: Yes Status: Acute Qualifiers: Respiratory failure complication: hypoxia Qualified Code(s): J96.01 - Acute respiratory failure with hypoxia Plan to address problem: Presented with hypoxia on room air Supplemental oxygen as needed Pulmonary hygiene (5) Transaminitis Current Visit: Yes Status: Acute Plan to address problem: Presented with elevated LFTs of AST 168, ALT 107, alkaline phos 83 Trend LFTs Patient is on remdesivir therapy started on 03/07 Monitor LFTs while on remdesivir Secondary to COVID-19 infection LFTs are trending down and mostly resolved (6) Elevated d-dimer Current Visit: Yes Status: Acute Plan to address problem: Patient presented with a D-dimer of 1139, 03/06 D-dimer 903, 03/08 D-dimer 583 Anticoagulation per COVID-19 protocol 03/05 bilateral lower extremity Doppler ultrasound negative for DVT/SVT 03/07 VQ scan indeterminate for pulmonary embolism Unable to get CTA chest because of inability to obtain consent 03/10 CTA chest shows severe emphysema with left basilar pneumonia and no pulmonary embolism (7) UTI (urinary tract infection) Current Visit: Yes Status: Acute Plan to address problem: Presented with urinary tract infection on urinalysis Antibiotic therapy Trend CBC Supportive care (8) Wounds, multiple Current Visit: Yes Status: Acute Plan to address problem: WOCN consult Patient is a [facility] patient Wound care per nursing (9) CVA, old, ataxia Current Visit: Yes Status: Chronic Plan to address problem: Supportive care Patient has left upper extremity contracture and aphasia Aspiration/fall precautions S/p PEG (10) DVT prophylaxis Current Visit: Yes Status: Acute Plan to address problem: Heparin subcu SCDs to bilateral tremors while in bed (11) Acute respiratory failure due to COVID-19 Current Visit: Yes Status: Acute History Interval history: This is a 69-year-old male who suffered from a CVA and is bedbound, [facility] of [facility] who presented to the emergency department on 03/06 with shortness of breath and hypoxia. His SPO2 was 85% on room air and he tested positive for COVID-19 at his [facility] recently. Upon arrival patient showed sepsis, elevated COVID-19 markers, lactic acidosis, hyperkalemia, dehydration, hyponatremia, borderline hyperglycemia and urinary tract infection and his chest x-ray showed mild patchy parenchymal disease in the left lower lung likely related to pneumonia and emphysema. Infectious disease was consulted. Patient patient is on room air. Patient remains on Ventimask with flow meter which is currently set at 6 L oxygen. No acute events reported overnight. Patient is confused and is asking for the removal of his mitten so he can go outside to have a cigarette. Patient nephew updated today. 03/06: Hypertonic solution started, steroids, remdesivir 03/07: tube feeding started, VQ scan showed indeterminate for the presence of pulmonary embolism, venous duplex bilateral lower extremity showed no DVT or SVT, remdesivir therapy started 03/08: Continue dexamethasone and remdesivir, patient is on room air 03/09: Patient is on day 3/5 of his remdesivir therapy. 03/10: Per charting patient's SPO2 decreased into the 80s overnight but he r emained on room air and now SPO2 is in the low 90s, patient was placed on a Ventimask with 4 L oxygen without the flowmeter, CTA chest shows severe emphysema with left basilar pneumonia and no pulmonary embolism. Hospitalist Physical - Constitutional Vitals: Temp Pulse Resp BP Pulse Ox 98.0 F 77 17 139/91 93 12/11/20 12:54 03/11/20 12:54 03/11/20 12:54 03/11/20 12:54 03/11/20 12:54 General appearance: Present: no acute distress, cachectic, other (Contracted) - EENT Eyes: Present: PERRL, EOM intact ENT: hearing decreased, poor dentition - Neck Neck: Present: normal ROM - Respiratory Respiratory effort: normal Respiratory: bilateral: diminished - Cardiovascular Rhythm: regular Heart Sounds: Present: S1 & S2. Absent: systolic murmur, diastolic murmur - Extremities Extremities: no ischemia, pulses intact, pulses symmetrical, No edema, normal temperature, normal color, abnormal (UE contracted) Peripheral Pulses: within normal limits - Abdominal General gastrointestinal: soft, non-tender, normal bowel sounds - Integumentary Integumentary: Present: warm, dry - Psychiatric Psychiatric: cooperative - Neurologic Neurologic: CNII-XII intact Results - Labs CBC & Chem 7: 03/09/20 06:03 03/09/20 06:03 Labs: Laboratory Last Values WBC 4.2 K/mm3 (4.5-11.0) L 03/09/20 06:03 RBC 3.98 M/mm3 (3.65-5.03) 03/09/20 06:03 Hgb 11.2 gm/dl (11.8-15.2) L 03/09/20 06:03 Hct 35.7 % (35.5-45.6) D 03/09/20 06:03 MCV 90 fl (84-94) 03/09/20 06:03 MCH 28 pg (28-32) 03/09/20 06:03 MCHC 32 % (32-34) 03/09/20 06:03 RDW 17.0 % (13.2-15.2) H 03/09/20 06:03 Plt Count 358 K/mm3 (140-440) 03/09/20 06:03 Lymph % (Auto) 18.6 % (13.4-35.0) 03/09/20 06:03 Jackson % (Auto) 5.4 % (0.0-7.3) 03/09/20 06:03 Eos % (Auto) 0.1 % (0.0-4.3) 03/09/20 06:03 Baso % (Auto) 0.1 % (0.0-1.8) 03/09/20 06:03 Lymph # (Auto) 0.8 K/mm3 (1.2-5.4) L 03/09/20 06:03 Jackson # (Auto) 0.2 K/mm3 (0.0-0.8) 03/09/20 06:03 Eos # (Auto) 0.0 K/mm3 (0.0-0.4) 03/09/20 06:03 Baso # (Auto) 0.0 K/mm3 (0.0-0.1) 03/09/20 06:03 Seg Neutrophils % 75.8 % (40.0-70.0) H 03/09/20 06:03 Seg Neutrophils # 3.2 K/mm3 (1.8-7.7) 03/09/20 06:03 PT 18.9 Sec. (12.2-14.9) H 03/06/20 05:21 INR 1.58 (0.87-1.13) H 03/06/20 05:21 D-Dimer 234.66 ng/mlDDU (0-234) H 03/10/20 04:00 Sodium 141 mmol/L (137-145) 03/09/20 06:03 Potassium 4.7 mmol/L (3.6-5.0) D 03/09/20 06:03 Chloride 105.9 mmol/L (98-107) 03/09/20 06:03 Carbon Dioxide 25 mmol/L (22-30) 03/09/20 06:03 Anion Gap 15 mmol/L 03/09/20 06:03 BUN 27 mg/dL (9-20) H 03/09/20 06:03 Creatinine 0.4 mg/dL (0.8-1.3) L 03/09/20 06:03 Estimated GFR > 60 ml/min 03/09/20 06:03 BUN/Creatinine Ratio 68 % 03/09/20 06:03 Glucose 102 mg/dL (75-100) H 03/09/20 06:03 POC Glucose 137 mg/dL (70-105) H 03/11/20 16:30 Lactic Acid 0.90 mmol/L (0.7-2.0) 03/05/20 06:09 Calcium 8.2 mg/dL (8.4-10.2) L 03/09/20 06:03 Magnesium 1.80 mg/dL (1.7-2.3) 03/10/20 05:16 Ferritin 1076.0 ng/mL (30.0-300.0) H 03/10/20 05:16 Total Bilirubin 0.20 mg/dL (0.1-1.2) 03/09/20 06:03 AST 53 units/L (5-40) H 03/09/20 06:03 ALT 56 units/L (7-56) 03/09/20 06:03 Alkaline Phosphatase 78 units/L (35-129) 03/09/20 06:03 Lactate Dehydrogenase 276 units/L (91-180) H 03/10/20 05:16 C-Reactive Protein 5.80 mg/dL (0.00-1.30) H 03/10/20 05:16 Total Protein 6.5 g/dL (6.3-8.2) 03/09/20 06:03 Albumin 2.2 g/dL (3.9-5) L 03/09/20 06:03 Albumin/Globulin Ratio 0.5 % 03/09/20 06:03 Procalcitonin 0.51 ng/mL (<0.15) 03/06/20 05:21 Urine Color Vicki (Yellow) 03/04/20 23:10 Urine Turbidity Slightly-cloudy (Clear) 03/04/20 23:10 Urine pH 8.0 (5.0-7.0) H 03/04/20 23:10 Ur Specific [place] 1.020 (1.003-1.030) 03/04/20 23:10 Urine Protein 100 mg/dl mg/dL (Negative) 03/04/20 23:10 Urine Glucose (UA) Neg mg/dL (Negative) 03/04/20 23:10 Urine Ketones Neg mg/dL (Negative) 03/04/20 23:10 Urine Blood Mod (Negative) 03/04/20 23:10 Urine Nitrite Neg (Negative) 03/04/20 23:10 Urine Bilirubin Neg (Negative) 03/04/20 23:10 Urine Urobilinogen 4.0 mg/dL (<2.0) 03/04/20 23:10 Ur Leukocyte Esterase Mod (Negative) 03/04/20 23:10 Urine WBC (Auto) 154.0 /HPF (0.0-6.0) H 03/04/20 23:10 Urine RBC (Auto) > 182.0 /HPF (0.0-6.0) 03/04/20 23:10 Urine Bacteria (Auto) 1+ /HPF (Negative) 03/04/20 23:10 Urine Mucus Few /HPF 03/04/20 23:10 Coronavirus (PCR) Positive (Negative) A 03/05/20 10:59 Deutsch/IV: Voiding Method Indwelling Catheter IV Catheter Type [Right Upper INT / Saline Lock arm] IV Catheter Type [Right Peripheral IV Antecubital] Active Medications - Current Medications Current Medications: Generic Name Dose Route Start Last Admin Trade Name Freq PRN Reason Stop Dose Admin Acetaminophen 650 mg 03/05/20 00:16 Tylenol PO Q4H PRN Pain MILD(1-3)/Fever >100.5/IBARRA Albuterol 2.5 mg 03/06/20 13:33 Proventil IH Q4HRT PRN Shortness Of Breath Lipase/Protease/Amylase 1 each 03/06/20 13:[address] 10,500 Unit FEEDTUBE PRN PRN For Clogged Feeding Tube Ascorbic Acid 500 mg 03/09/20 10:00 03/11/20 10:04 Vitamin C FEEDTUBE 500 mg DAILY TANNER Administration Atorvastatin Calcium 40 mg 03/09/20 22:00 03/10/20 23:55 Lipitor FEEDTUBE 40 mg QHS TANNER Administration Calcium Carbonate/Glycine 625 mg 03/09/20 10:00 03/11/20 10:03 Calcium Carbonate FEEDTUBE 625 mg DAILY TANNER Administration Dexamethasone 6 mg 03/09/20 10:00 03/11/20 10:04 Decadron IV 03/13/20 12:00 6 mg Q24HR TANNER Administration Dextrose 50 ml 03/06/20 22:08 D50w (25gm) Syringe IV Q30MIN PRN Hypoglycemia Protocol Doxazosin Mesylate 1 mg 03/09/20 22:00 03/11/20 00:07 Cardura FEEDTUBE 1 mg QHS TANNER Administration Heparin Sodium (Porcine) 5,000 unit 03/05/20 06:00 03/11/20 05:41 Heparin SUB-Q 5,000 unit Q8HR TANNER Administration Labetalol HCl 10 mg 03/09/20 06:22 03/09/20 06:46 Labetalol IV 10 mg Q6HR PRN Administration Blood Pressure Lansoprazole 30 mg 03/09/20 10:00 03/11/20 10:15 Prevacid Solutab FEEDTUBE 30 mg QDAY TANNER Administration Lisinopril 5 mg 03/09/20 10:00 03/11/20 10:04 Zestril FEEDTUBE 5 mg DAILY TANNER Administration Metoclopramide HCl 10 mg 03/05/20 00:16 Reglan IV Q6H PRN Nausea And Vomiting Metoprolol Tartrate 12.5 mg 03/09/20 10:00 03/11/20 10:04 Metoprolol FEEDTUBE 12.5 mg BID TANNER Administration Miscellaneous Medication 850 mg 03/09/20 10:00 Magnesium Oxide [Magnesium] FEEDTUBE DAILY TANNER Morphine Sulfate 2 mg 03/05/20 00:16 03/10/20 23:52 Morphine IV 2 mg Q4H PRN Administration Pain, Moderate (4-6) Simple Syrup 15 ml 03/06/20 13:18 Simple Syrup FEEDTUBE PRN PRN Hypoglycemia Simple Syrup 30 ml 03/06/20 13:18 Simple Syrup FEEDTUBE PRN PRN Hypoglycemia Sodium Bicarbonate 325 mg 03/06/20 13:18 Sodium Bicarbonate FEEDTUBE PRN PRN For Clogged Feeding Tube Sodium Chloride 10 ml 03/05/20 10:00 03/11/20 10:06 Sodium Chloride Flush Syringe 10 Ml IV 10 ml BID TANNER Administration Sodium Chloride 10 ml 03/05/20 00:16 Sodium Chloride Flush Syringe 10 Ml IV PRN PRN LINE FLUSH Sodium Hypochlorite 1 applic 03/08/20 10:00 03/11/20 10:05 Dakin's Half Strength TP 1 ml BID TANNER Administration Tramadol HCl 50 mg 03/09/20 08:27 Ultram FEEDTUBE Q6HR PRN Pain, Moderate (4-6) Nutrition/Malnutrition Assess - Dietary Evaluation Nutrition/Malnutrition Findings: Nutrition Notes Start: 03/05/20 09:48 Freq: Status: Active Protocol: Document 03/11/20 13:34 CW (Rec: 03/11/20 14:17 CW [email or web address]) Co-Sign 03/11/20 13:34 MK Nutrition Notes Initial or Follow up Reassessment Current Diagnosis Decubitus(Pressure Ulcer) Other Pertinent Diagnosis COVID-19, pneu, UTI, bedbound multiple PUs, hx CVA Current Diet TF, Jevity 1.2 at 55 mL/hr Labs/Tests reviewed Pertinent Medications reviewed Height 5 ft 8 in Weight 40 kg Reading Body Weight (kg) 70.00 BMI 13.4 Weight change and time frame Wt change noted. Weight Status Emaciated Subjective/Other Information FU for TF tolerance. Pt TF is running at goal rate. Per RN, pt tolerating TF. Discussed Yonathan with RN. Percent of energy/protein needs met: 100%/100% Burn Absent Trauma Absent Current % PO Negligible Minimum of two criteria Yes Interpretation of Weight Loss (severe) >2% in 1 week Body Fat Depletion Mild depletion (non-severe) Muscle Mass Mild Depletion (non-severe) Reduced [employer] Strength Measurably Reduced (severe) #2 Nutrition Diagnosis Increased nutrient needs ( specify in comment below) Diagnosis Progress(for reassessment Continues documentation) #1 Nutrition Diagnosis Malnutrition As Evidenced by Signs and Symptoms BMI 13.4 Diagnosis Progress(for reassessment Worsened documentation) Is patient on ventilator? No Is Patient Ambulatory and/or Out of Bed No REE-([facility]-confined to bed) 1373.544 Kcal/Kg value to use for calculation 45 Approximate Energy Requirements Using 1800 kcal/Kg Calculation Used for Recommendations Kcal/kg Additional Notes PRO needs: 51-62g (1.25-1.5 g/ kg) Fluid needs: 1 mL/kcal Nutrition Intervention Change Diet Order: Increase TF rate Nutrition Support: Jevity 1.2 at 60ml/hr Flush 100ml q4h Kcal 1,728 Protein (gm) 80 Fluid (mL) 1,162 Add Supplement/Snack (indicate name/kcal Yonathan BID via PEG /protein ) Provides kCal: 190 Provides Protein (gm) 5 Goal #1 Continued TF tolerance Goal #2 Wt gain/maintenance Goal #3 Wound healing Goal #4 Meet at least 80% of estimated energy and protein needs via TF Anticipated Discharge Needs: TF Follow-Up By: 03/15/20 Additional Comments FU for TF tolerance
--- NOTE | 2020-03-11 17:32 | Event Note ---
I attempted to update the patient's nephew however the numbers listed under demographics are general numbers. I requested the nurse to update his next of kin contact information. This has not been updated as of 173. Once updated please update nephew.
[2020-03-11] MEDS: MORPHINE 2 MG/1 ML INJ IV PRN (23:31)
[2020-03-12 05:48] LABS: Hemoglobin 9.6 gm/dl (11.8-15.2); Mean Corpuscular HGB Conc 33 % (32-34); Mean Corpuscular Volume 86 fl (84-94); Platelet Count 366 K/mm3 (140-440); Red Blood Count 3.38 M/mm3 (3.65-5.03); Red Cell Distribution Width 16.9 % (13.2-15.2)
[2020-03-12 06:02] LABS: Blood Urea Nitrogen 22 mg/dL (9-20); Calcium 8.1 mg/dL (8.4-10.2); Hemolysis Index 15
[2020-03-12] MEDS: HEPARIN 5,000 UNIT/1 ML VIAL SUB-Q SCH ×3 (06:04→22:25)
[2020-03-12 06:18] LABS: BUN/Creatinine Ratio 55
--- NOTE | 2020-03-12 07:58 | Progress Note ---
Assessment and Plan Assessment and plan: (1) Severe sepsis Current Visit: Yes Status: Acute Plan to address problem: Presented with lactic acidosis, UTI on urine analysis, CXR showed patchy airspace disease with emphysema, hypoxia, tachycardia, tachypnea Infectious disease consulted S/p antibiotic therapy for COVID-19 pneumonia On IV antibiotic therapy for urinary tract infection 03/04 blood culture x2 with no growth after 72 hours Trend CBC and monitor vital signs (2) COVID-19 Current Visit: Yes Status: Acute Plan to address problem: 03/05 COVID-19 PCR positive S/p antibiotic therapy which was discontinued given normal procalcitonin Infectious disease consulted Steroid therapy for 10 days 03/07 remdesivir therapy initiated Anticoagulation per protocol Trend inflammatory markers Supplemental oxygen as needed Prone to sleep as needed Pulmonary hygiene We will likely need to DC with Eliquis 12.5 twice daily for 10/28 days (3) Bilateral pneumonia Current Visit: Yes Status: Acute Qualifiers: Pneumonia type: due to unspecified organism Lung location: lower lobe of lung Qualified Code(s): J18.9 - Pneumonia, unspecified organism Plan to address problem: Presented with pneumonia on CXR S/p antibiotic therapy Infectious disease consulted Supplemental oxygen as needed Pulmonary hygiene (4) Acute respiratory failure Current Visit: Yes Status: Acute Qualifiers: Respiratory failure complication: hypoxia Qualified Code(s): J96.01 - Acute respiratory failure with hypoxia Plan to address problem: Presented with hypoxia on room air Supplemental oxygen as needed Pulmonary hygiene (5) Transaminitis Current Visit: Yes Status: Acute Plan to address problem: Presented with elevated LFTs of AST 168, ALT 107, alkaline phos 83 Trend LFTs Patient is on remdesivir therapy started on 03/07 Monitor LFTs while on remdesivir Secondary to COVID-19 infection LFTs are trending down and mostly resolved (6) Elevated d-dimer Current Visit: Yes Status: Acute Plan to address problem: Patient presented with a D-dimer of 1139, 03/06 D-dimer 903, 03/08 D-dimer 583 Anticoagulation per COVID-19 protocol 03/05 bilateral lower extremity Doppler ultrasound negative for DVT/SVT 03/07 VQ scan indeterminate for pulmonary embolism Unable to get CTA chest because of inability to obtain consent 03/10 CTA chest shows severe emphysema with left basilar pneumonia and no pulmonary embolism (7) UTI (urinary tract infection) Current Visit: Yes Status: Acute Plan to address problem: Presented with urinary tract infection on urinalysis Antibiotic therapy Trend CBC Supportive care (8) Wounds, multiple Current Visit: Yes Status: Acute Plan to address problem: WOCN consult Patient is a [facility] patient Wound care per nursing (9) CVA, old, ataxia Current Visit: Yes Status: Chronic Plan to address problem: Supportive care Patient has left upper extremity contracture and aphasia Aspiration/fall precautions S/p PEG (10) DVT prophylaxis Current Visit: Yes Status: Acute Plan to address problem: Heparin subcu SCDs to bilateral tremors while in bed (11) Acute respiratory failure due to COVID-19 Current Visit: Yes Status: Acute History Interval history: This is a 69-year-old male who suffered from a CVA and is bedbound, resident of [facility] who presented to the emergency department on 03/06 with shortness of breath and hypoxia. His SPO2 was 85% on room air and he tested positive for COVID-19 at his [facility] recently. Upon arrival patient showed sepsis, elevated COVID-19 markers, lactic acidosis, hyperkalemia, dehydration, hyponatremia, borderline hyperglycemia and urinary tract infection and his chest x-ray showed mild patchy parenchymal disease in the left lower lung likely rela amira to pneumonia and emphysema. Infectious disease was consulted. Patient patient is on room air. Patient remains on Ventimask with flow meter which is currently set at 6 L oxygen. No acute events reported overnight. Patient is confused and is asking for the removal of his mitten so he can go outside to have a cigarette. Patient nephew updated today. 03/06: Hypertonic solution started, steroids, remdesivir 03/07: tube feeding started, VQ scan showed indeterminate for the presence of pulmonary embolism, venous duplex bilateral lower extremity showed no DVT or SVT, remdesivir therapy started 03/08: Continue dexamethasone and remdesivir, patient is on room air 03/09: Patient is on day 3/5 of his remdesivir therapy. 03/10: Per charting patient's SPO2 decreased into the 80s overnight but he remained on room air and now SPO2 is in the low 90s, patient was placed on a Ventimask with 4 L oxygen without the flowmeter, CTA chest shows severe emphysema with left basilar pneumonia and no pulmonary embolism. 03/12/2020; patient is currently on 2 L of oxygen. CTA was done and significant for severe emphysema with left basilar pneumonia but no PE. Patient was treated with antibiotics. Continue with Decadron and finished remdesivir. Patient is severely malnourished and dietitian is following the patient. Patient said he wants to eat and I am going to do speech therapy evaluation and if he passed swallow evaluation he can eat and we can stop the PEG tube feeding. Patient said he wants to go home discharge. Output PT evaluation. Patient is improving. History Interval history: Patient was seen and evaluated this morning Patient is on 2 L of oxygen Hospitalist Physical - Physical exam Narrative exam: On Ventimask The patient is emaciated Vital signs as documented. Head exam is unremarkable. No scleral icterus . Neck is without jugular venous distension, thyromegaly, or carotid bruits. Lungs are clear to auscultation. Cardiac exam reveals regular rate and Rhythm. Abdominal PEG tube in place. Extremities are nonedematous and both femoral and pedal pulses are normal. DIRECTOR OF CASEWORK SERVICES: Alert . No focal weakness. - Constitutional Vitals: Temp Pulse Resp BP Pulse Ox 98.9 F 86 20 100/80 100 03/12/20 05:04 03/12/20 05:04 03/12/20 05:04 03/12/20 05:04 03/12/20 05:04 General appearance: Present: no acute distress, cachectic, other (Contracted) Results - Labs CBC & Chem 7: 03/12/20 04:42 03/12/20 04:42 Labs: Laboratory Last Values WBC 6.7 K/mm3 (4.5-11.0) 03/12/20 04:42 RBC 3.38 M/mm3 (3.65-5.03) L 03/12/20 04:42 Hgb 9.6 gm/dl (11.8-15.2) L 03/12/20 04:42 Hct 29.0 % (35.5-45.6) L D 03/12/20 04:42 MCV 86 fl (84-94) 03/12/20 04:42 MCH 28 pg (28-32) 03/12/20 04:42 MCHC 33 % (32-34) 03/12/20 04:42 RDW 16.9 % (13.2-15.2) H 03/12/20 04:42 Plt Count 366 K/mm3 (140-440) 03/12/20 04:42 Lymph % (Auto) 18.6 % (13.4-35.0) 03/09/20 06:03 Kendall % (Auto) 5.4 % (0.0-7.3) 03/09/20 06:03 Eos % (Auto) 0.1 % (0.0-4.3) 03/09/20 06:03 Baso % (Auto) 0.1 % (0.0-1.8) 03/09/20 06:03 Lymph # (Auto) 0.8 K/mm3 (1.2-5.4) L 03/09/20 06:03 Kendall # (Auto) 0.2 K/mm3 (0.0-0.8) 03/09/20 06:03 Eos # (Auto) 0.0 K/mm3 (0.0-0.4) 03/09/20 06:03 Baso # (Auto) 0.0 K/mm3 (0.0-0.1) 03/09/20 06:03 Seg Neutrophils % 75.8 % (40.0-70.0) H 03/09/20 06:03 Seg Neutrophils # 3.2 K/mm3 (1.8-7.7) 03/09/20 06:03 PT 18.9 Sec. (12.2-14.9) H 03/06/20 05:21 INR 1.58 (0.87-1.13) H 03/06/20 05:21 D-Dimer 234.66 ng/mlDDU (0-234) H 03/10/20 04:00 Sodium 130 mmol/L (137-145) L D 03/12/20 04:42 Potassium 4.3 mmol/L (3.6-5.0) 03/12/20 04:42 Chloride 96.7 mmol/L (98-107) L 03/12/20 04:42 Carbon Dioxide 23 mmol/L (22-30) 03/12/20 04:42 Anion Gap 15 mmol/L 03/12/20 04:42 BUN 22 mg/dL (9-20) H 03/12/20 04:42 Creatinine 0.4 mg/dL (0.8-1.3) L 03/12/20 04:42 Estimated GFR > 60 ml/min 03/12/20 04:42 BUN/Creatinine Ratio 55 % 03/12/20 04:42 Glucose 94 mg/dL (75-100) 03/12/20 04:42 POC Glucose 87 mg/dL (70-105) 03/12/20 05:02 Lactic Acid 0.90 mmol/L (0.7-2.0) 03/05/20 06:09 Calcium 8.1 mg/dL (8.4-10.2) L 03/12/20 04:42 Magnesium 1.80 mg/dL (1.7-2.3) 03/10/20 05:16 Ferritin 1076.0 ng/mL (30.0-300.0) H 03/10/20 05:16 Total Bilirubin 0.20 mg/dL (0.1-1.2) 03/09/20 06:03 AST 53 units/L (5-40) H 03/09/20 06:03 ALT 56 units/L (7-56) 03/09/20 06:03 Alkaline Phosphatase 78 units/L (35-129) 03/09/20 06:03 Lactate Dehydrogenase 276 units/L (91-180) H 03/10/20 05:16 C-Reactive Protein 5.80 mg/dL (0.00-1.30) H 03/10/20 05:16 Total Protein 6.5 g/dL (6.3-8.2) 03/09/20 06:03 Albumin 2.2 g/dL (3.9-5) L 03/09/20 06:03 Albumin/Globulin Ratio 0.5 % 03/09/20 06:03 Procalcitonin 0.51 ng/mL (<0.15) 03/06/20 05:21 Urine Color Vicki (Yellow) 03/04/20 23:10 Urine Turbidity Slightly-cloudy (Clear) 03/04/20 23:10 Urine pH 8.0 (5.0-7.0) H 03/04/20 23:10 Ur Specific Dutton 1.020 (1.003-1.030) 03/04/20 23:10 Urine Protein 100 mg/dl mg/dL (Negative) 03/04/20 23:10 Urine Glucose (UA) Neg mg/dL (Negative) 03/04/20 23:10 Urine Ketones Neg mg/dL (Negative) 03/04/20 23:10 Urine Blood Mod (Negative) 03/04/20 23:10 Urine Nitrite Neg (Negative) 03/04/20 23:10 Urine Bilirubin Neg (Negative) 03/04/20 23:10 Urine Urobilinogen 4.0 mg/dL (<2.0) 03/04/20 23:10 Ur Leukocyte Esterase Mod (Negative) 03/04/20 23:10 Urine WBC (Auto) 154.0 /HPF (0.0-6.0) H 03/04/20 23:10 Urine RBC (Auto) > 182.0 /HPF (0.0-6.0) 03/04/20 23:10 Urine Bacteria (Auto) 1+ /HPF (Negative) 03/04/20 23:10 Urine Mucus Few /HPF 03/04/20 23:10 Coronavirus (PCR) Positive (Negative) A 03/05/20 10:59 Deutsch/IV: Voiding Method Indwelling Catheter IV Catheter Type [Right Upper INT / Saline Lock arm] IV Catheter Type [Right Peripheral IV Antecubital] Active Medications - Current Medications Current Medications: Generic Name Dose Route Start Last Admin Trade Name Freq PRN Reason Stop Dose Admin Acetaminophen 650 mg 03/05/20 00:16 Tylenol PO Q4H PRN Pain MILD(1-3)/Fever >100.5/IBARRA Albuterol 2.5 mg 03/06/20 13:33 Proventil IH Q4HRT PRN Shortness Of Breath Lipase/Protease/Amylase 1 each 03/06/20 13:18 Pancreaze 10,500 Unit FEEDTUBE PRN PRN For Clogged Feeding Tube Ascorbic Acid 500 mg 03/09/20 10:00 03/11/20 10:04 Vitamin C FEEDTUBE 500 mg DAILY TANNER Administration Atorvastatin Calcium 40 mg 03/09/20 22:00 03/11/20 22:44 Lipitor FEEDTUBE 40 mg QHS TANNER Administration Calcium Carbonate/Glycine 625 mg 03/09/20 10:00 03/11/20 10:03 Calcium Carbonate FEEDTUBE 625 mg DAILY TANNER Administration Dexamethasone 6 mg 03/09/20 10:00 03/11/20 10:04 Decadron IV 03/13/20 12:00 6 mg Q24HR TANNER Administration Dextrose 50 ml 03/06/20 22:08 D50w (25gm) Syringe IV Q30MIN PRN Hypoglycemia Protocol Doxazosin Mesylate 1 mg 03/09/20 22:00 03/11/20 22:42 Cardura FEEDTUBE 1 mg QHS TANNER Administration Heparin Sodium (Porcine) 5,000 unit 03/05/20 06:00 03/12/20 06:04 Heparin SUB-Q 5,000 unit Q8HR TANNER Administration Labetalol HCl 10 mg 03/09/20 06:22 03/09/20 06:46 Labetalol IV 10 mg Q6HR PRN Administration Blood Pressure Lansoprazole 30 mg 03/09/20 10:00 03/11/20 10:15 Prevacid Solutab FEEDTUBE 30 mg QDAY TANNER Administration Lisinopril 5 mg 03/09/20 10:00 03/11/20 10:04 Zestril FEEDTUBE 5 mg DAILY TANNER Administration Metoclopramide HCl 10 mg 03/05/20 00:16 Reglan IV Q6H PRN Nausea And Vomiting Metoprolol Tartrate 12.5 mg 03/09/20 10:00 03/11/20 22:44 Metoprolol FEEDTUBE 12.5 mg BID TANNER Administration Miscellaneous Medication 850 mg 03/09/20 10:00 Magnesium Oxide [Magnesium] FEEDTUBE DAILY TANNER Morphine Sulfate 2 mg 03/05/20 00:16 03/11/20 23:31 Morphine IV 2 mg Q4H PRN Administration Pain, Moderate (4-6) Simple Syrup 15 ml 03/06/20 13:18 Simple Syrup FEEDTUBE PRN PRN Hypoglycemia Simple Syrup 30 ml 03/06/20 13:18 Simple Syrup FEEDTUBE PRN PRN Hypoglycemia Sodium Bicarbonate 325 mg 03/06/20 13:18 Sodium Bicarbonate FEEDTUBE PRN PRN For Clogged Feeding Tube Sodium Chloride 10 ml 03/05/20 10:00 03/11/20 22:45 Sodium Chloride Flush Syringe 10 Ml IV 10 ml BID TANNER Administration Sodium Chloride 10 ml 03/05/20 00:16 Sodium Chloride Flush Syringe 10 Ml IV PRN PRN LINE FLUSH Sodium Hypochlorite 1 applic 03/08/20 10:00 03/11/20 22:43 Dakin's Half Strength TP 1 ml BID TANNER Administration Tramadol HCl 50 mg 12/09/20 08:27 Ultram FEEDTUBE Q6HR PRN Pain, Moderate (4-6) Nutrition/Malnutrition Assess - Dietary Evaluation Nutrition/Malnutrition Findings: Nutrition Notes Start: 03/05/20 09:48 Freq: Status: Active Protocol: Document 03/11/20 13:34 CW (Rec: 03/11/20 14:17 CW [email or web address]) Co-Sign 03/11/20 13:34 MK Nutrition Notes Initial or Follow up Reassessment Current Diagnosis Decubitus(Pressure Ulcer) Other Pertinent Diagnosis COVID-19, pneu, UTI, bedbound multiple PUs, hx CVA Current Diet TF, Jevity 1.2 at 55 mL/hr Labs/Tests reviewed Pertinent Medications reviewed Height 5 ft 8 in Weight 40 kg [place] Body Weight (kg) 70.00 BMI 13.4 Weight change and time frame Wt change noted. Weight Status Emaciated Subjective/Other Information FU for TF tolerance. Pt TF is running at goal rate. Per RN, pt tolerating TF. Discussed Yonathan with RN. Percent of energy/protein needs met: 100%/100% Burn Absent Trauma Absent Current % PO Negligible Minimum of two criteria Yes Interpretation of Weight Loss (severe) >2% in 1 week Body Fat Depletion Mild depletion (non-severe) Muscle Mass Mild Depletion (non-severe) Reduced Spool Sorter Strength Measurably Reduced (severe) #2 Nutrition Diagnosis Increased nutrient needs ( specify in comment below) Diagnosis Progress(for reassessment Continues documentation) #1 Nutrition Diagnosis Malnutrition As Evidenced by Signs and Symptoms BMI 13.4 Diagnosis Progress(for reassessment Worsened documentation) Is patient on ventilator? No Is Patient Ambulatory and/or Out of Bed No REE-([facility]-confined to bed) 1373.544 Kcal/Kg value to use for calculation 45 Approximate Energy Requirements Using 1800 kcal/Kg Calculation Used for Recommendations Kcal/kg Additional Notes PRO needs: 51-62g (1.25-1.5 g/ kg) Fluid needs: 1 mL/kcal Nutrition Intervention Change Diet Order: Increase TF rate Nutrition Support: Jevity 1.2 at 60ml/hr Flush 100ml q4h Kcal 1,728 Protein (gm) 80 Fluid (mL) 1,162 Add Supplement/Snack (indicate name/kcal Yonathan BID via PEG /protein ) Provides kCal: 190 Provides Protein (gm) 5 Goal #1 Continued TF tolerance Goal #2 Wt gain/maintenance Goal #3 Wound healing Goal #4 Meet at least 80% of estimated energy and protein needs via TF Anticipated Discharge Needs: TF Follow-Up By: 03/15/20 Additional Comments FU for TF tolerance
[2020-03-12] MEDS: ASCORBIC ACID 500 MG TAB FEEDTUBE SCH (11:08)
[2020-03-12] MEDS: LISINOPRIL 5 MG TAB FEEDTUBE SCH (11:08)
[2020-03-12] MEDS: METOPROLOL TARTRATE 25 MG TAB FEEDTUBE SCH ×2 (11:08→22:24)
[2020-03-12] MEDS: LANSOPRAZOLE 30 MG SOLUTAB FEEDTUBE SCH (11:09)
[2020-03-12] MEDS: dexAMETHasone 4 MG/ML VIAL IV SCH (11:09)
[2020-03-12] MEDS: CALCIUM CARBONATE 1250 MG/5 ML ORAL LIQD FEEDTUBE SCH (11:10)
[2020-03-12] MEDS: SODIUM HYPOCHLORITE, DAKIN'S 1/2 STRENGTH (0.25%) 473 ML TOPICAL SOLN TP SCH ×2 (11:11→22:35)
[2020-03-12] MEDS: DOXAZOSIN 1 MG TAB FEEDTUBE SCH (22:25)
[2020-03-13] MEDS: HEPARIN 5,000 UNIT/1 ML VIAL SUB-Q SCH ×3 (05:16→20:59)
[2020-03-13] MEDS: LANSOPRAZOLE 30 MG SOLUTAB FEEDTUBE SCH (15:32)
[2020-03-13] MEDS: ASCORBIC ACID 500 MG TAB FEEDTUBE SCH (15:32)
[2020-03-13] MEDS: METOPROLOL TARTRATE 25 MG TAB FEEDTUBE SCH ×2 (15:32→23:59)
[2020-03-13] MEDS: LISINOPRIL 5 MG TAB FEEDTUBE SCH (15:34)
[2020-03-13] MEDS: SODIUM HYPOCHLORITE, DAKIN'S 1/2 STRENGTH (0.25%) 473 ML TOPICAL SOLN TP SCH ×2 (15:37→20:59)
[2020-03-13] MEDS: CALCIUM CARBONATE 1250 MG/5 ML ORAL LIQD FEEDTUBE SCH (15:44)
[2020-03-13 20:38] LABS: BUN/Creatinine Ratio 45; Blood Urea Nitrogen 18 mg/dL (9-20); Calcium 8.8 mg/dL (8.4-10.2); Hemolysis Index 57
[2020-03-13] MEDS: DOXAZOSIN 1 MG TAB FEEDTUBE SCH (23:59)
[2020-03-14] MEDS: HEPARIN 5,000 UNIT/1 ML VIAL SUB-Q SCH ×3 (06:01→22:58)
--- NOTE | 2020-03-14 06:59 | Progress Note ---
Assessment and Plan Assessment and Plan (1) Severe sepsis Current Visit: Yes Status: Acute Plan to address problem: Presented with lactic acidosis, UTI on urine analysis, CXR showed patchy airspace disease with emphysema, hypoxia, tachycardia, tachypnea Infectious disease consulted S/p antibiotic therapy for COVID-19 pneumonia On IV antibiotic therapy for urinary tract infection 03/04 blood culture x2 with no growth after 72 hours Trend CBC and monitor vital signs (2) COVID-19 Current Visit: Yes Status: Acute Plan to address problem: 03/05 COVID-19 PCR positive S/p antibiotic therapy which was discontinued given normal procalcitonin Infectious disease consulted Steroid therapy for 10 days 03/07 remdesivir therapy initiated Anticoagulation per protocol Trend inflammatory markers Supplemental oxygen as needed Prone to sleep as needed Pulmonary hygiene We will likely need to DC with Eliquis 10 twice daily for 10/28 days (3) Bilateral pneumonia Current Visit: Yes Status: Acute Qualifiers: Pneumonia type: due to unspecified organism Lung location: lower lobe of lung Qualified Code(s): J18.9 - Pneumonia, unspecified organism Plan to address problem: Presented with pneumonia on CXR S/p antibiotic therapy Infectious disease consulted Supplemental oxygen as needed Pulmonary hygiene (4) Acute respiratory failure Current Visit: Yes Status: Acute Qualifiers: Respiratory failure complication: hypoxia Qualified Code(s): J96.01 - Acute respiratory failure with hypoxia Plan to address problem: Presented with hypoxia on room air Supplemental oxygen as needed Pulmonary hygiene (5) Transaminitis Current Visit: Yes Status: Acute Plan to address problem: Presented with elevated LFTs of AST 168, ALT 107, alkaline phos 83 Trend LFTs Patient is on remdesivir therapy started on 03/07 Monitor LFTs while on remdesivir Secondary to COVID-19 infection LFTs are trending down and mostly resolved (6) Elevated d-dimer Current Visit: Yes Status: Acute Plan to address problem: Patient presented with a D-dimer of 1139, 03/06 D-dimer 903, 03/08 D-dimer 583 Anticoagulation per COVID-19 protocol 03/05 bilateral lower extremity Doppler ultrasound negative for DVT/SVT 03/07 VQ scan indeterminate for pulmonary embolism Unable to get CTA chest because of inability to obtain consent 03/10 CTA chest shows severe emphysema with left basilar pneumonia and no pulmonary embolism (7) UTI (urinary tract infection) Current Visit: Yes Status: Acute Plan to address problem: Presented with urinary tract infection on urinalysis Antibiotic therapy Trend CBC Supportive care (8) Wounds, multiple Current Visit: Yes Status: Acute Plan to address problem: WOCN consult Patient is a skilled nursing patient Wound care per nursing (9) CVA, old, ataxia Current Visit: Yes Status: Chronic Plan to address problem: Supportive care Patient has left upper extremity contracture and aphasia Aspiration/fall precautions S/p PEG (10) DVT prophylaxis Current Visit: Yes Status: Acute Plan to address problem: Heparin subcu SCDs to bilateral tremors while in bed (11) Acute respiratory failure due to COVID-19 Subjective Date of service: 03/13/20 Principal diagnosis: COVID-19 Interval history: History This is a 69-year-old male who suffered from a CVA and is bedbound, resident of skilled nursing who presented to the emergency department on 03/06 with shortness of breath and hypoxia. His SPO2 was 85% on room air and he tested positive for COVID-19 at his skilled nursing recently. Upon arrival patient showed sepsis, elevated COVID-19 markers, lactic acidosis, hyperkalemia, dehydration, hyponatremia, borderline hyperglycemia and urinary tract infection and his chest x-ray showed mild patchy parenchymal disease in the left lower lung likely related to pneumonia and emphysema. Infectious disease was consulted. Patient patient is on room air. Patient remains on Ventimask with flow meter which is currently set at 6 L oxygen. No acute events reported overnight. Patient is co nfused and is asking for the removal of his mitten so he can go outside to have a cigarette. Patient nephew updated today. 03/06: Hypertonic solution started, steroids, remdesivir 03/07: tube feeding started, VQ scan showed indeterminate for the presence of pulmonary embolism, venous duplex bilateral lower extremity showed no DVT or SVT, remdesivir therapy started 03/08: Continue dexamethasone and remdesivir, patient is on room air 03/09: Patient is on day 3/5 of his remdesivir therapy. 03/10: Per charting patient's SPO2 decreased into the 80s overnight but he remained on room air and now SPO2 is in the low 90s, patient was placed on a Ventimask with 4 L oxygen without the flowmeter, CTA chest shows severe emphysema with left basilar pneumonia and no pulmonary embolism. 03/12/2020; patient is currently on 2 L of oxygen. CTA was done and significant for severe emphysema with left basilar pneumonia but no PE. Patient was treated with antibiotics. Continue with Decadron and finished remdesivir. Patient is severely malnourished and dietitian is following the patient. Patient said he wants to eat and I am going to do speech therapy evaluation and if he passed swallow evaluation he can eat and we can stop the PEG tube feeding. Patient said he wants to go home discharge. Output PT evaluation. Patient is improving. 03/13/2020 patient still on 2 L nasal cannula oxygen May go home if home oxygen is arranged History Interval history: Patient was seen and evaluated this morning Patient is on 2 L of oxygen Objective - Constitutional Vitals: Vital Signs - 12hr 03/13/20 03/13/20 03/14/20 20:50 23:14 04:40 Temperature 98.4 F 100.3 F H Pulse Rate 102 H 114 H Respiratory 17 20 Rate Blood Pressure 113/60 Blood Pressure 121/48 [Left] O2 Sat by Pulse 95 92 99 Oximetry General appearance: Present: mild distress, well-nourished - EENT Eyes: PERRL, EOM intact ENT: hearing intact, clear oral mucosa Ears: bilateral: normal - Neck Neck: supple, normal ROM - Respiratory Respiratory effort: normal Respiratory: bilateral: CTA, rhonchi (Scattered rhonchi) - Breasts Breasts: normal - Cardiovascular Heart rate: 78 Rhythm: regular Heart Sounds: Present: S1 & S2. Absent: gallop, rub Extremities: pulses intact, No edema, normal color, Full ROM - Gastrointestinal General gastrointestinal: Present: soft, non-tender, non-distended, normal bowel sounds - Genitourinary Male genitourinary: normal - Integumentary Integumentary: clear, warm, dry - Musculoskeletal Musculoskeletal: 1, strength equal bilaterally - Neurologic Neurologic: moves all extremities - Psychiatric Psychiatric: memory intact, appropriate mood/affect, intact judgment & insight - Labs CBC & Chem 7: 03/12/20 04:42 03/13/20 19:37 Labs: Abnormal lab results 03/13/20 03/13/20 03/14/20 Range/Units 19:37 23:44 05:52 Sodium 135 L (137-145) mmol/L Potassium 5.2 H D (3.6-5.0) mmol/L Chloride 95.5 L (98-107) mmol/L Carbon Dioxide 19 L (22-30) mmol/L Creatinine 0.4 L (0.8-1.3) mg/dL Glucose 44 L (75-100) mg/dL POC Glucose 114 H 125 H (70-105) mg/dL
--- NOTE | 2020-03-14 08:46 | Progress Note ---
Assessment and Plan Cultures: Blood culture 03/04/2020 no growth today SARS CoV2 PCR positive Assessment: 69 years old male with history of CVA, bedbound, resident of senior living, admitted on secondary to shortness of breath and hypoxia at the senior living, recent COVID-19 test positive: #Severe sepsis: Noted low-grade fever, likely due to bilateral pneumonia +/- UTI. #Severe COVID pneumonia: Chest x-ray with bilateral airspace disease. Elevated markers. D-dimer 1139. Venous ultrasound without any DVT. VQ scan indeterminate. CTA shows severe emphysema and left basilar pneumonia. No pulmonary embolism. #Acute hypoxia: Now on 2 L nasal cannula. #Elevated LFTs: from COVID #Status post PEG #UTI #Extensive decubiti sacral and back; not infected Recommendations: -Monitor fever if continues will obtain blood cultures/urinalysis/procalcitonin/CXR -Completed dexamethasone -Completed remdesivir -Completed ceftriaxone 5 days/azithromycin 3 days -Continue anticoagulation per System Protocol -Prone positioning as possible -Follow-up urine culture -Offloading -Continue wound care Guarded prognosis, discuss goals of care with family Will follow Clara Enrique MD Infectious Diseases Medical Instrument Technician [facility] ([facility]) M [phone] O [phone] Subjective Date of service: 03/14/20 Principal diagnosis: COVID-19 Interval history: Patient is now on 2 L nasal cannula are noted low-grade fever Objective - Exam Narrative Exam: Physical Exam: reviewed ED and hospitalist notes, limited due to conservation of PPE and decrease risk of transmission. General appearance: limited due to conservation of PPE Eyes: limited due to conservation of PPE HENT: Atraumatic; limited due to conservation of PPE Lungs: limited due to conservation of PPE CV: limited due to conservation of PPE Abdomen: limited due to conservation of PPE Extremities: limited due to conservation of PPE Skin: limited due to conservation of PPE Psych: limited due to conservation of PPE Neuro: limited due to conservation of PPE - Constitutional Vitals: Vital Signs Temp Pulse Resp BP Pulse Ox 100.3 F H 114 H 20 121/48 99 03/14/20 04:40 03/14/20 04:40 03/14/20 04:40 03/14/20 04:40 03/14/20 04:40 Temperature -Last 24 Hours Temperature 100.3 F Temperature 98.4 F Temperature 98.5 F - Labs CBC & Chem 7: 03/12/20 04:42 03/13/20 19:37 Labs: Abnormal lab results 03/13/20 03/13/20 03/14/20 Range/Units 19:37 23:44 05:52 Sodium 135 L (137-145) mmol/L Potassium 5.2 H D (3.6-5.0) mmol/L Chloride 95.5 L (98-107) mmol/L Carbon Dioxide 19 L (22-30) mmol/L Creatinine 0.4 L (0.8-1.3) mg/dL Glucose 44 L (75-100) mg/dL POC Glucose 114 H 125 H (70-105) mg/dL
[2020-03-14] MEDS: ASCORBIC ACID 500 MG TAB FEEDTUBE SCH (11:24)
[2020-03-14] MEDS: LISINOPRIL 5 MG TAB FEEDTUBE SCH (11:24)
[2020-03-14] MEDS: METOPROLOL TARTRATE 25 MG TAB FEEDTUBE SCH ×2 (11:24→22:59)
[2020-03-14] MEDS: LANSOPRAZOLE 30 MG SOLUTAB FEEDTUBE SCH (11:25)
[2020-03-14] MEDS: CALCIUM CARBONATE 1250 MG/5 ML ORAL LIQD FEEDTUBE SCH (11:25)
[2020-03-14] MEDS: SODIUM HYPOCHLORITE, DAKIN'S 1/2 STRENGTH (0.25%) 473 ML TOPICAL SOLN TP SCH ×2 (16:35→22:59)
--- NOTE | 2020-03-14 16:38 | Progress Note ---
Assessment and Plan - Patient Problems (1) Severe sepsis Current Visit: Yes Status: Acute Plan to address problem: Presented with lactic acidosis, UTI on urine analysis, CXR showed patchy airspace disease with emphysema, hypoxia, tachycardia, tachypnea Infectious disease consulted S/p antibiotic therapy for COVID-19 pneumonia On IV antibiotic therapy for urinary tract infection 03/04 blood culture x2 with no growth after 72 hours Trend CBC and monitor vital signs (2) COVID-19 Current Visit: Yes Status: Acute Plan to address problem: 03/05 COVID-19 PCR positive S/p ceftriaxone 5 days/azithromycin 3 days Infectious disease consulted s/p steroid therapy for 10 days s/p remdesivir therapy Anticoagulation per protocol Trend inflammatory markers Supplemental oxygen as needed Prone to sleep as needed Pulmonary hygiene We will likely need to DC with Eliquis 12.5 twice daily for 10/28 days (3) Acute respiratory failure due to COVID-19 Current Visit: Yes Status: Acute Plan to address problem: Patient presented with hypoxia and was weaned to room air, however last week he developed hypoxia and was placed on a Venturi mask Supplemental oxygen as needed Pulmonary hygiene (4) Bilateral pneumonia Current Visit: Yes Status: Acute Qualifiers: Pneumonia type: due to unspecified organism Lung location: lower lobe of lung Qualified Code(s): J18.9 - Pneumonia, unspecified organism Plan to address problem: Presented with pneumonia on CXR S/p antibiotic therapy Infectious disease consulted Supplemental oxygen as needed Pulmonary hygiene (5) Acute respiratory failure Current Visit: Yes Status: Acute Qualifiers: Respiratory failure complication: hypoxia Qualified Code(s): J96.01 - Acute respiratory failure with hypoxia Plan to address problem: Presented with hypoxia on room air Supplemental oxygen as needed Pulmonary hygiene (6) Transaminitis Current Visit: Yes Status: Resolved Plan to address problem: Presented with elevated LFTs of AST 168, ALT 107, alkaline phos 83 Trend LFTs Patient is on remdesivir therapy started on 03/07 Monitor LFTs while on remdesivir Secondary to COVID-19 infection LFTs are trending down and mostly resolved (7) Elevated d-dimer Current Visit: Yes Status: Acute Plan to address problem: Patient presented with a D-dimer of 1139, 03/06 D-dimer 903, 03/08 D-dimer 583 Anticoagulation per COVID-19 protocol 03/05 bilateral lower extremity Doppler ultrasound negative for DVT/SVT 03/07 VQ scan indeterminate for pulmonary embolism Unable to get CTA chest because of inability to obtain consent 03/10 CTA chest shows severe emphysema with left basilar pneumonia and no pulmonary embolism (8) UTI (urinary tract infection) Current Visit: Yes Status: Acute Plan to address problem: Presented with urinary tract infection on urinalysis s/p Antibiotic therapy Trend CBC Supportive care (9) Wounds, multiple Current Visit: Yes Status: Acute Plan to address problem: WOCN consult Patient is a snf patient Wound care per nursing (10) CVA, old, ataxia Current Visit: Yes Status: Chronic Plan to address problem: Supportive care Patient has left upper extremity contracture and aphasia Aspiration/fall precautions S/p PEG (11) Hyponatremia Current Visit: Yes Status: Acute Plan to address problem: Patient had hypernatremia during hospital stay and free water flushes were increased Resume if you are flushes as ordered by the customer acquisition manager Patient has hyponatremia now 03/12 sodium 130, 03/13 sodium 135, 03/14 BMP pending (12) Hyperkalemia Current Visit: Yes Status: Acute Plan to address problem: 03/13 patient had hyperkalemia with a potassium of 5.2 03/14 stat BMP ordered in the a.m. and still pending. Trend BMP Intervene as needed (13) DVT prophylaxis Current Visit: Yes Status: Acute Plan to address problem: Heparin subcu SCDs to bilateral tremors while in bed History Interval history: This is a 69-year-old male who suffered from a CVA and is bedbound, resident of snf who presented to the emergency department on 03/06 with shortness of breath and hypoxia. His SPO2 was 85% on room air and he tested positive for COVID-19 at his snf recently. Upon arrival patient showed sepsis, elevated COVID-19 markers, lactic acidosis, hyperkalemia, dehydration, hyponatremia, borderline hyperglycemia and urinary tract infection and his chest x-ray showed mild patchy parenchymal disease in the left lower lung likely related to pneumonia and emphysema. Infectious disease was consulted. At the time of examination today patient is on nasal cannula. Family contact information still not updated in the computer. Patient is medically stable for discharge. 03/06: Hypertonic solution started, steroids, remdesivir 03/07: tube feeding started, VQ scan showed indeterminate for the presence of pulmonary embolism, venous duplex bilateral lower extremity showed no DVT or SVT, remdesivir therapy started 03/08: Continue dexamethasone and remdesivir, patient is on room air 03/09: Patient is on day 3/5 of his remdesivir therapy. 03/10: Per charting patient's SPO2 decreased into the 80s overnight but he re mained on room air and now SPO2 is in the low 90s, patient was placed on a Ventimask with 4 L oxygen without the flowmeter, CTA chest shows severe emphysema with left basilar pneumonia and no pulmonary embolism. 03/11: Intermittently confused. Attempted to update family however family contact information not updated, asked RN to update. 03/12/2020; patient is currently on 2 L of oxygen. CTA was done and significant for severe emphysema with left basilar pneumonia but no PE. Patient was treated with antibiotics. Continue with Decadron and finished remdesivir. Patient is severely malnourished and dietitian is following the patient. Patient said he wants to eat and I am going to do speech therapy evaluation and if he passed swallow evaluation he can eat and we can stop the PEG tube feeding. Patient said he wants to go home discharge. Output PT evaluation. Patient is improving. 03/13/2020 patient still on 2 L nasal cannula oxygen. May go home if home oxygen is arranged Hospitalist Physical - Constitutional Vitals: Temp Pulse Resp BP Pulse Ox 97.7 F 83 18 110/67 99 03/14/20 12:13 03/14/20 12:13 03/14/20 12:13 03/14/20 12:13 03/14/20 12:13 General appearance: Present: mild distress, cachectic - EENT Eyes: Present: EOM intact ENT: hearing decreased, poor dentition - Neck Neck: Present: normal ROM - Respiratory Respiratory effort: normal Respiratory: bilateral: CTA, diminished - Cardiovascular Rhythm: regular Heart Sounds: Present: S1 & S2. Absent: systolic murmur, diastolic murmur - Extremities Extremities: no ischemia, pulses intact, pulses symmetrical, No edema, normal temperature, normal color, abnormal (Upper arm contracted) Peripheral Pulses: within normal limits - Abdominal General gastrointestinal: soft, non-tender, non-distended, normal bowel sounds - Integumentary Integumentary: Present: warm, dry - Psychiatric Psychiatric: cooperative - Neurologic Neurologic: CNII-XII intact, no moves all extremities Results - Labs CBC & Chem 7: 03/12/20 04:42 03/13/20 19:37 Labs: Laboratory Last Values WBC 6.7 K/mm3 (4.5-11.0) 03/12/20 04:42 RBC 3.38 M/mm3 (3.65-5.03) L 03/12/20 04:42 Hgb 9.6 gm/dl (11.8-15.2) L 03/12/20 04:42 Hct 29.0 % (35.5-45.6) L D 03/12/20 04:42 MCV 86 fl (84-94) 03/12/20 04:42 MCH 28 pg (28-32) 03/12/20 04:42 MCHC 33 % (32-34) 03/12/20 04:42 RDW 16.9 % (13.2-15.2) H 03/12/20 04:42 Plt Count 366 K/mm3 (140-440) 03/12/20 04:42 Lymph % (Auto) 18.6 % (13.4-35.0) 03/09/20 06:03 Letcher % (Auto) 5.4 % (0.0-7.3) 03/09/20 06:03 Eos % (Auto) 0.1 % (0.0-4.3) 03/09/20 06:03 Baso % (Auto) 0.1 % (0.0-1.8) 03/09/20 06:03 Lymph # (Auto) 0.8 K/mm3 (1.2-5.4) L 03/09/20 06:03 Letcher # (Auto) 0.2 K/mm3 (0.0-0.8) 03/09/20 06:03 Eos # (Auto) 0.0 K/mm3 (0.0-0.4) 03/09/20 06:03 Baso # (Auto) 0.0 K/mm3 (0.0-0.1) 03/09/20 06:03 Seg Neutrophils % 75.8 % (40.0-70.0) H 03/09/20 06:03 Seg Neutrophils # 3.2 K/mm3 (1.8-7.7) 03/09/20 06:03 PT 18.9 Sec. (12.2-14.9) H 03/06/20 05:21 INR 1.58 (0.87-1.13) H 03/06/20 05:21 D-Dimer 234.66 ng/mlDDU (0-234) H 03/10/20 04:00 Sodium 135 mmol/L (137-145) L 03/13/20 19:37 Potassium 5.2 mmol/L (3.6-5.0) H D 03/13/20 19:37 Chloride 95.5 mmol/L (98-107) L 03/13/20 19:37 Carbon Dioxide 19 mmol/L (22-30) L 03/13/20 19:37 Anion Gap 26 mmol/L 03/13/20 19:37 BUN 18 mg/dL (9-20) 03/13/20 19:37 Creatinine 0.4 mg/dL (0.8-1.3) L 03/13/20 19:37 Estimated GFR > 60 ml/min 03/13/20 19:37 BUN/Creatinine Ratio 45 % 03/13/20 19:37 Glucose 44 mg/dL (75-100) L 03/13/20 19:37 POC Glucose 90 mg/dL (70-105) 03/14/20 15:15 Lactic Acid 0.90 mmol/L (0.7-2.0) 03/05/20 06:09 Calcium 8.8 mg/dL (8.4-10.2) 03/13/20 19:37 Magnesium 1.80 mg/dL (1.7-2.3) 03/10/20 05:16 Ferritin 1076.0 ng/mL (30.0-300.0) H 03/10/20 05:16 Total Bilirubin 0.20 mg/dL (0.1-1.2) 03/09/20 06:03 AST 53 units/L (5-40) H 03/09/20 06:03 ALT 56 units/L (7-56) 03/09/20 06:03 Alkaline Phosphatase 78 units/L (35-129) 03/09/20 06:03 Lactate Dehydrogenase 276 units/L (91-180) H 03/10/20 05:16 C-Reactive Protein 5.80 mg/dL (0.00-1.30) H 03/10/20 05:16 Total Protein 6.5 g/dL (6.3-8.2) 03/09/20 06:03 Albumin 2.2 g/dL (3.9-5) L 03/09/20 06:03 Albumin/Globulin Ratio 0.5 % 03/09/20 06:03 Procalcitonin 0.51 ng/mL (<0.15) 03/06/20 05:21 Urine Color Vicki (Yellow) 03/04/20 23:10 Urine Turbidity Slightly-cloudy (Clear) 03/04/20 23:10 Urine pH 8.0 (5.0-7.0) H 03/04/20 23:10 Ur Specific Elton 1.020 (1.003-1.030) 03/04/20 23:10 Urine Protein 100 mg/dl mg/dL (Negative) 03/04/20 23:10 Urine Glucose (UA) Neg mg/dL (Negative) 03/04/20 23:10 Urine Ketones Neg mg/dL (Negative) 03/04/20 23:10 Urine Blood Mod (Negative) 03/04/20 23:10 Urine Nitrite Neg (Negative) 03/04/20 23:10 Urine Bilirubin Neg (Negative) 03/04/20 23:10 Urine Urobilinogen 4.0 mg/dL (<2.0) 03/04/20 23:10 Ur Leukocyte Esterase Mod (Negative) 03/04/20 23:10 Urine WBC (Auto) 154.0 /HPF (0.0-6.0) H 03/04/20 23:10 Urine RBC (Auto) > 182.0 /HPF (0.0-6.0) 03/04/20 23:10 Urine Bacteria (Auto) 1+ /HPF (Negative) 03/04/20 23:10 Urine Mucus Few /HPF 03/04/20 23:10 Coronavirus (PCR) Positive (Negative) A 03/05/20 10:59 Deutsch/IV: Voiding Method Indwelling Catheter IV Catheter Type [Right Upper INT / Saline Lock arm] IV Catheter Type [Right Peripheral IV Antecubital] Active Medications - Current Medications Current Medications: Generic Name Dose Route Start Last Admin Trade Name Freq PRN Reason Stop Dose Admin Acetaminophen 650 mg 03/05/20 00:16 03/14/20 06:01 Tylenol PO 650 mg Q4H PRN Administration Pain MILD(1-3)/Fever >100.5/IBARRA Albuterol 2.5 mg 03/06/20 13:33 Proventil IH Q4HRT PRN Shortness Of Breath Lipase/Protease/Amylase 1 each 03/06/20 13:18 Pancrebethany Vallecillo 10,500 Unit FEEDTUBE PRN PRN For Clogged Feeding Tube Ascorbic Acid 500 mg 03/09/20 10:00 03/14/20 11:24 Vitamin C FEEDTUBE 500 mg DAILY TANNER Administration Atorvastatin Calcium 40 mg 03/09/20 22:00 03/13/20 20:59 Lipitor FEEDTUBE 40 mg QHS TANNER Administration Calcium Carbonate/Glycine 625 mg 03/09/20 10:00 03/14/20 11:25 Calcium Carbonate FEEDTUBE 625 mg DAILY TANNER Administration Dextrose 50 ml 03/06/20 22:08 D50w (25gm) Syringe IV Q30MIN PRN Hypoglycemia Protocol Doxazosin Mesylate 1 mg 03/09/20 22:00 03/13/20 23:59 Cardura FEEDTUBE Not Given QHS TANNER Heparin Sodium (Porcine) 5,000 unit 03/05/20 06:00 03/14/20 06:01 Heparin SUB-Q 5,000 unit Q8HR TANNER Administration Labetalol HCl 10 mg 03/09/20 06:22 03/09/20 06:46 Labetalol IV 10 mg Q6HR PRN Administration Blood Pressure Lansoprazole 30 mg 03/09/20 10:00 03/14/20 11:25 Prevacid Solutab FEEDTUBE 30 mg QDAY TANNER Administration Lisinopril 5 mg 03/09/20 10:00 03/14/20 11:24 Zestril FEEDTUBE 5 mg DAILY TANNER Administration Metoclopramide HCl 10 mg 03/05/20 00:16 Reglan IV Q6H PRN Nausea And Vomiting Metoprolol Tartrate 12.5 mg 03/09/20 10:00 03/14/20 11:24 Metoprolol FEEDTUBE 12.5 mg BID TANNER Administration Miscellaneous Medication 850 mg 03/09/20 10:00 Magnesium Oxide [Magnesium] FEEDTUBE DAILY TANNER Morphine Sulfate 2 mg 03/05/20 00:16 03/11/20 23:31 Morphine IV 2 mg Q4H PRN Administration Pain, Moderate (4-6) Simple Syrup 15 ml 03/06/20 13:18 Simple Syrup FEEDTUBE PRN PRN Hypoglycemia Simple Syrup 30 ml 03/06/20 13:18 Simple Syrup FEEDTUBE PRN PRN Hypoglycemia Sodium Bicarbonate 325 mg 03/06/20 13:18 Sodium Bicarbonate FEEDTUBE PRN PRN For Clogged Feeding Tube Sodium Chloride 10 ml 03/05/20 10:00 03/13/20 21:00 Sodium Chloride Flush Syringe 10 Ml IV 10 ml BID TANNER Administration Sodium Chloride 10 ml 03/05/20 00:16 Sodium Chloride Flush Syringe 10 Ml IV PRN PRN LINE FLUSH Sodium Hypochlorite 1 applic 03/08/20 10:00 03/13/20 20:59 Dakin's Half Strength TP 1 ml BID TANNER Administration Tramadol HCl 50 mg 03/09/20 08:27 Ultram FEEDTUBE Q6HR PRN Pain, Moderate (4-6) Nutrition/Malnutrition Assess - Dietary Evaluation Nutrition/Malnutrition Findings: Nutrition Notes Start: 03/05/20 09:48 Freq: Status: Active Protocol: Document 03/11/20 13:34 CW (Rec: 03/11/20 14:17 CW [email or web address]) Co-Sign 03/11/20 13:34 MK Nutrition Notes Initial or Follow up Reassessment Current Diagnosis Decubitus(Pressure Ulcer) Other Pertinent Diagnosis COVID-19, pneu, UTI, bedbound multiple PUs, hx CVA Current Diet TF, Jevity 1.2 at 55 mL/hr Labs/Tests reviewed Pertinent Medications reviewed Height 5 ft 8 in Weight 40 kg Todd Body Weight (kg) 70.00 BMI 13.4 Weight change and time frame Wt change noted. Weight Status Emaciated Subjective/Other Information FU for TF tolerance. Pt TF is running at goal rate. Per RN, pt tolerating TF. Discussed Yonathan with RN. Percent of energy/protein needs met: 100%/100% Burn Absent Trauma Absent Current % PO Negligible Minimum of two criteria Yes Interpretation of Weight Loss (severe) >2% in 1 week Body Fat Depletion Mild depletion (non-severe) Muscle Mass Mild Depletion (non-severe) Reduced Baggage Porter Head Strength Measurably Reduced (severe) #2 Nutrition Diagnosis Increased nutrient needs ( specify in comment below) Diagnosis Progress(for reassessment Continues documentation) #1 Nutrition Diagnosis Malnutrition As Evidenced by Signs and Symptoms BMI 13.4 Diagnosis Progress(for reassessment Worsened documentation) Is patient on ventilator? No Is Patient Ambulatory and/or Out of Bed No REE-(Wilbarger-St. Jeor-confined to bed) 1373.544 Kcal/Kg value to use for calculation 45 Approximate Energy Requirements Using 1800 kcal/Kg Calculation Used for Recommendations Kcal/kg Additional Notes PRO needs: 51-62g (1.25-1.5 g/ kg) Fluid needs: 1 mL/kcal Nutrition Intervention Change Diet Order: Increase TF rate Nutrition Support: Jevity 1.2 at 60ml/hr Flush 100ml q4h Kcal 1,728 Protein (gm) 80 Fluid (mL) 1,162 Add Supplement/Snack (indicate name/kcal Yonathan BID via PEG /protein ) Provides kCal: 190 Provides Protein (gm) 5 Goal #1 Continued TF tolerance Goal #2 Wt gain/maintenance Goal #3 Wound healing Goal #4 Meet at least 80% of estimated energy and protein needs via TF Anticipated Discharge Needs: TF Follow-Up By: 03/15/20 Additional Comments FU for TF tolerance
[2020-03-14] MEDS: traMADol 50 MG TAB FEEDTUBE PRN (22:58)
[2020-03-14] MEDS: DOXAZOSIN 1 MG TAB FEEDTUBE SCH (22:59)
[2020-03-15 02:31] LABS: Blood Urea Nitrogen 21 mg/dL (9-20); Calcium 8.1 mg/dL (8.4-10.2); Hemolysis Index 3
[2020-03-15 02:40] LABS: BUN/Creatinine Ratio 42
[2020-03-15] MEDS: HEPARIN 5,000 UNIT/1 ML VIAL SUB-Q SCH ×3 (06:23→23:37)
--- NOTE | 2020-03-15 07:36 | Progress Note ---
Assessment and Plan Cultures: Blood culture 03/04/2020 no growth today SARS CoV2 PCR positive Assessment: 69 years old male with history of CVA, bedbound, resident of half-way, admitted on secondary to shortness of breath and hypoxia at the half-way, recent COVID-19 test positive: #Severe sepsis: No fever for 24 hours, likely due to bilateral pneumonia +/- UTI. #Severe COVID pneumonia: Chest x-ray with bilateral airspace disease. Elevated markers. D-dimer 1139. Markers improving. Venous ultrasound without any DVT. VQ scan indeterminate. CTA shows severe emphysema and left basilar pneumonia. No pulmonary embolism. #Acute hypoxia: Improving. Now on 1 L nasal cannula. #Elevated LFTs: from COVID #Status post PEG #UTI #Extensive decubiti sacral and back; not infected #Anemia. Recommendations: -Monitor fever if continues will obtain blood cultures/urinalysis/procalcitonin/CXR -Completed dexamethasone -Completed remdesivir -Completed ceftriaxone 5 days/azithromycin 3 days -Continue anticoagulation per System Protocol -Prone positioning as possible -Follow-up urine culture -Offloading -Continue wound care will sign off please call us if any question Clara Enrique MD Infectious Diseases [facility] [phone] O [phone] Subjective Date of service: 03/15/20 Principal diagnosis: COVID-19 Interval history: Patient is now on 2 L nasal cannula are noted low-grade fever Objective - Exam Narrative Exam: Physical Exam: reviewed ED and hospitalist notes, limited due to conservation of PPE and decrease risk of transmission. General appearance: limited due to conservation of PPE Eyes: limited due to conservation of PPE HENT: Atraumatic; limited due to conservation of PPE Lungs: limited due to conservation of PPE CV: limited due to conservation of PPE Abdomen: limited due to conservation of PPE Extremities: limited due to conservation of PPE Skin: limited due to conservation of PPE Psych: limited due to conservation of PPE Neuro: limited due to conservation of PPE - Constitutional Vitals: Vital Signs Temp Pulse Resp BP Pulse Ox 99.2 F 113 H 18 114/68 94 03/15/20 04:56 03/15/20 04:56 03/15/20 04:56 03/15/20 06:30 03/15/20 04:56 Temperature -Last 24 Hours Temperature 99.2 F Temperature 98.6 F Temperature 98.5 F Temperature 97.7 F - Labs CBC & Chem 7: 03/12/20 04:42 03/15/20 01:08 Labs: Abnormal lab results 03/14/20 03/15/20 03/15/20 Range/Units 23:20 01:08 05:33 Sodium 133 L (137-145) mmol/L BUN 21 H (9-20) mg/dL Creatinine 0.5 L (0.8-1.3) mg/dL Glucose 115 H (75-100) mg/dL POC Glucose 118 H 123 H (70-105) mg/dL Calcium 8.1 L (8.4-10.2) mg/dL
[2020-03-15] MEDS: METOPROLOL TARTRATE 25 MG TAB FEEDTUBE SCH ×2 (11:01→23:39)
[2020-03-15] MEDS: LISINOPRIL 5 MG TAB FEEDTUBE SCH (11:01)
[2020-03-15] MEDS: CALCIUM CARBONATE 1250 MG/5 ML ORAL LIQD FEEDTUBE SCH (11:03)
[2020-03-15] MEDS: ASCORBIC ACID 500 MG TAB FEEDTUBE SCH (11:03)
[2020-03-15] MEDS: SODIUM HYPOCHLORITE, DAKIN'S 1/2 STRENGTH (0.25%) 473 ML TOPICAL SOLN TP SCH ×2 (11:04→23:39)
[2020-03-15] MEDS: LANSOPRAZOLE 30 MG SOLUTAB FEEDTUBE SCH (11:04)
[2020-03-15] MEDS: dexAMETHasone 4 MG/ML VIAL IV SCH (12:38)
--- NOTE | 2020-03-15 14:13 | Discharge Summary ---
Providers - Providers Date of Admission: 03/06/20 12:50 Attending physician: ELEANOR EASON 03/05/20 00:16 Consult to Physician [CONS] Routine Comment: Consulting Provider: AMANDA HART Physician Instructions: Reason For Exam: Pneumonia R/O Covid 19 03/05/20 07:59 Consult to Wound/ET Nurse [CONS] Routine Reason For Exam: wound eval 03/06/20 09:49 Consult to Dietitian/Nutrition [CONS] Routine Physician Instructions: Reason For Exam: Reason for Consult: Write/Manage Tube Feeding 03/09/20 02:49 Consult to Physician [CONS] Routine Comment: Consulting Provider: HENNY WU Physician Instructions: Reason For Exam: monitor on pt's v tach 03/12/20 10:11 Physical Therapy Evaluation and Treat [CONS] Routine Comment: Reason For Exam: deconditioning Speech Therapy Evaluation and Treat [CONS] Routine Reason For Exam: patient wants to eat Primary care physician: TECHNICAL STAFF ASSISTANT Hospitalization Condition: Stable Hospital course: This is a 69-year-old male who suffered from a CVA and is bedbound, [facility] who presented to the emergency department on 03/06 with shortness of breath and hypoxia. His SPO2 was 85% on room air and he tested positive for COVID-19 at his [facility] recently. Upon arrival patient showed sepsis, elevated COVID-19 markers, lactic acidosis, hyperkalemia, dehydration, hyponatremia, borderline hyperglycemia and urinary tract infection and his chest x-ray showed mild patchy parenchymal disease in the left lower lung likely related to pneumonia and emphysema. Infectious disease was consulted. He had a lactate imbalances started today which were corrected. Patient is status post remdesivir and dexamethasone for his COVID-19 infection and status post antibiotic therapy for his urinary tract infection. Due to elevated D-dimers a CTA was obtained which showed severe emphysema with left basilar pneumonia but no pulmonary embolism. Patient passed a swallow evaluation therefore he was ordered a pured diet. Patient is on 2 L nasal cannula intermittently. Patient will need to follow-up with his primary care physician within 1 to 2 weeks of discharge. Patient will be discharged with a 7-day course of Eliquis as his last D-dimer was 235. Care is being transferred to SNF. 1) Severe sepsis Current Visit: Yes Status: Acute Plan to address problem: Presented with lactic acidosis, UTI on urine analysis, CXR showed patchy airspace disease with emphysema, hypoxia, tachycardia, tachypnea Infectious disease consulted S/p antibiotic therapy for COVID-19 pneumonia S/p IV antibiotic therapy for urinary tract infection 03/04 blood culture x2 with no growth after 72 hours (2) COVID-19 Current Visit: Yes Status: Acute Plan to address problem: 03/05 COVID-19 PCR positive S/p ceftriaxone 5 days/azithromycin 3 days Infectious disease consulted s/p steroid therapy for 10 days s/p remdesivir therapy Supplemental oxygen as needed Pulmonary hygiene We will likely need to DC with Eliquis 2.5 twice daily for 7 days (3) Acute respiratory failure due to COVID-19 Current Visit: Yes Status: Acute Plan to address problem: Patient presented with hypoxia and was weaned to room air, however last week he developed hypoxia and was placed on a Venturi mask Supplemental oxygen as needed Pulmonary hygiene (4) Bilateral pneumonia Current Visit: Yes Status: Resolved Qualifiers: Pneumonia type: due to unspecified organism Lung location: lower lobe of lung Qualified Code(s): J18.9 - Pneumonia, unspecified organism Plan to address problem: Presented with pneumonia on CXR S/p antibiotic therapy Supplemental oxygen as needed Pulmonary hygiene (5) Acute respiratory failure Current Visit: Yes Status: Acute Qualifiers: Respiratory failure complication: hypoxia Qualified Code(s): J96.01 - Acute respiratory failure with hypoxia Plan to address problem: Presented with hypoxia on room air Supplemental oxygen as needed Pulmonary hygiene (6) Transaminitis Current Visit: Yes Status: Resolved Plan to address problem: Presented with elevated LFTs of AST 168, ALT 107, alkaline phos 83 Trend LFTs Patient is on remdesivir therapy started on 03/07 Monitor LFTs while on remdesivir Secondary to COVID-19 infection LFTs are trending down and mostly resolved (7) Elevated d-dimer Current Visit: Yes Status: Acute Plan to address problem: Patient presented with a D-dimer of 1139, 03/06 D-dimer 903, 03/08 D-dimer 583 Anticoagulation per COVID-19 protocol 03/05 bilateral lower extremity Doppler ultrasound negative for DVT/SVT 03/07 VQ scan indeterminate for pulmonary embolism Unable to get CTA chest because of inability to obtain consent 03/10 CTA chest shows severe emphysema with left basilar pneumonia and no pulmonary embolism (8) UTI (urinary tract infection) Current Visit: Yes Status: Resolved Plan to address problem: Presented with urinary tract infection on urinalysis s/p Antibiotic therapy (9) Wounds, multiple Current Visit: Yes Status: Acute Plan to address problem: WOCN consult Patient is a [facility] patient Wound care per nursing Patient has a stage III pressure ulcer to the right hip, stage III pressure ulcer to left scapula, 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 including multiple other pressure ulcers throughout his body (10) CVA, old, ataxia Current Visit: Yes Status: Chronic Plan to address problem: Supportive care Patient has left upper extremity contracture and aphasia Continue aspiration/fall precautions S/p PEG (11) Hyponatremia Current Visit: Yes Status: Acute Plan to address problem: Patient had hypernatremia during hospital stay and free water flushes were increased Resume if you are flushes as ordered by the chief accounting officer Patient has hyponatremia now 03/12 sodium 130, 03/13 sodium 135, 03/14 sodium 133 (12) Hyperkalemia Current Visit: Yes Status: Resolved Plan to address problem: 03/13 patient had hyperkalemia with a potassium of 5.2 03/01 15 potassium 4.8 Disposition: DC/[place]-03 SNF [facility] Core Measure Documentation - Palliative Care Palliative Care/ Comfort Measures: Not Applicable - Core Measures Any of the following diagnoses?: history only Exam - Constitutional Vitals: Temp Pulse Resp BP Pulse Ox 97.0 F L 87 22 124/74 99 03/15/20 12:22 03/15/20 12:22 03/15/20 12:22 03/15/20 12:22 03/15/20 12:22 General appearance: Present: no acute distress, cachectic - EENT Eyes: Present: EOM intact ENT: hearing decreased, poor dentition - Neck Neck: Present: normal ROM - Respiratory Respiratory effort: normal Respiratory: bilateral: CTA, diminished - Cardiovascular Rhythm: regular Heart Sounds: Present: S1 & S2. Absent: systolic murmur, diastolic murmur - Extremities Extremities: no ischemia, pulses intact, pulses symmetrical, No edema, normal temperature, normal color, Full ROM Peripheral Pulses: within normal limits - Abdominal General gastrointestinal: Present: soft, non-tender, non-distended, normal bowel sounds - Integumentary Integumentary: Present: warm, dry - Musculoskeletal Musculoskeletal: other (Contracted to upper extremity) - Psychiatric Psychiatric: cooperative - Neurologic Neurologic: CNII-XII intact, no moves all extremities (Contracture upper ext remity) Plan Activity: advance as tolerated Diet: other (Continue PEG tube and pured diet p.o.) Wound: per wound nurse instructions Special Instructions: record daily BP diary, record blood sugar diary Additional Instructions: Present to nearest emergency department or contact PCP if experience worsening symptoms. Care is being transferred to [facility]. Patient will be discharged with a 7-day course of Eliquis for prophylaxis for COVID-19 related thromboembolus. Follow up with: PRIMARY CARE, [Primary Care Provider] - 7 Days Prescriptions: Apixaban [Eliquis] 2.5 mg PO BID 7 Days #14 tablet Apixaban [Eliquis] 2.5 mg FEEDTUBE BID 7 Days #14
--- NOTE | 2020-03-15 14:15 | Progress Note ---
Assessment and Plan - Patient Problems (1) Severe sepsis Current Visit: Yes Status: Acute Plan to address problem: Presented with lactic acidosis, UTI on urine analysis, CXR showed patchy airspace disease with emphysema, hypoxia, tachycardia, tachypnea Infectious disease consulted S/p antibiotic therapy for COVID-19 pneumonia On IV antibiotic therapy for urinary tract infection 03/04 blood culture x2 with no growth after 72 hours Trend CBC and monitor vital signs (2) COVID-19 Current Visit: Yes Status: Acute Plan to address problem: 03/05 COVID-19 PCR positive S/p ceftriaxone 5 days/azithromycin 3 days Infectious disease consulted s/p steroid therapy for 10 days s/p remdesivir therapy Anticoagulation per protocol Trend inflammatory markers Supplemental oxygen as needed Prone to sleep as needed Pulmonary hygiene We will likely need to DC with Eliquis 12.5 twice daily for 10/28 days (3) Acute respiratory failure due to COVID-19 Current Visit: Yes Status: Acute Plan to address problem: Patient presented with hypoxia and was weaned to room air, however last week he developed hypoxia and was placed on a Venturi mask Supplemental oxygen as needed Pulmonary hygiene (4) Bilateral pneumonia Current Visit: Yes Status: Acute Qualifiers: Pneumonia type: due to unspecified organism Lung location: lower lobe of lung Qualified Code(s): J18.9 - Pneumonia, unspecified organism Plan to address problem: Presented with pneumonia on CXR S/p antibiotic therapy Infectious disease consulted Supplemental oxygen as needed Pulmonary hygiene (5) Acute respiratory failure Current Visit: Yes Status: Acute Qualifiers: Respiratory failure complication: hypoxia Qualified Code(s): J96.01 - Acute respiratory failure with hypoxia Plan to address problem: Presented with hypoxia on room air Supplemental oxygen as needed Pulmonary hygiene (6) Elevated d-dimer Current Visit: Yes Status: Acute Plan to address problem: Patient presented with a D-dimer of 1139, 03/06 D-dimer 903, 03/08 D-dimer 583 Anticoagulation per COVID-19 protocol 03/05 bilateral lower extremity Doppler ultrasound negative for DVT/SVT 03/07 VQ scan indeterminate for pulmonary embolism Unable to get CTA chest because of inability to obtain consent 03/10 CTA chest shows severe emphysema with left basilar pneumonia and no pulmonary embolism (7) UTI (urinary tract infection) Current Visit: Yes Status: Acute Plan to address problem: Presented with urinary tract infection on urinalysis s/p Antibiotic therapy Trend CBC Supportive care (8) Wounds, multiple Current Visit: Yes Status: Acute Plan to address problem: WOCN consult [facility] Wound care per nursing Stage III pressure ulcer to right hip, stage III pressure ulcer to left scapula, 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 along with multiple other pressure ulcers (9) CVA, old, ataxia Current Visit: Yes Status: Chronic Plan to address problem: Supportive care Patient has left upper extremity contracture and aphasia Aspiration/fall precautions S/p PEG (10) Hyponatremia Current Visit: Yes Status: Acute Plan to address problem: Patient had hypernatremia during hospital stay and free water flushes were increased Resume if you are flushes as ordered by the enrollment representative Patient has hyponatremia now 03/12 sodium 130, 03/13 sodium 135, 03/15 Na 133 (11) Hyperkalemia Current Visit: Yes Status: Resolved Plan to address problem: 03/13 patient had hyperkalemia with a potassium of 5.2, 03/15 K 4.4 03/14 stat BMP ordered in the a.m. and still pending. Trend BMP Intervene as needed (12) Severe malnutrition Current Visit: Yes Status: Acute Plan to address problem: BMI 12.8 03/09 Albumin 2.2 Nutrition consult (13) DVT prophylaxis Current Visit: Yes Status: Acute Plan to address problem: Heparin subcu SCDs to bilateral tremors while in bed History Interval history: This is a 69-year-old male who suffered from a CVA and is bedbound, [facility] who presented to the emergency department on 03/06 with shortness of breath and hypoxia. His SPO2 was 85% on room air and [facility]. Upon arrival patient showed sepsis, elevated COVID-19 markers, lactic acidosis, hyperkalemia, dehydration, hyponatremia, borderline hyperglycemia and urinary tract infection and his chest x-ray showed mild patchy parenchymal disease in the left lower lung likely related to pneumonia and emphysema. Infectious disease was consulted. Patient remains on nasal cannula. COVID PCR ordered for am. 126: Hypertonic solution started, steroids, remdesivir 03/07: tube feeding started, VQ scan showed indeterminate for the presence of pulmonary embolism, venous duplex bilateral lower extremity showed no DVT or SVT, remdesivir therapy started 03/08: Continue dexamethasone and remdesivir, patient is on room air 03/09: Patient is on day 3/5 of his remdesivir therapy. 03/10: Per charting patient's SPO2 decreased into the 80s overnight but he remained on room air and now SPO2 is in the low 90s, patient was placed on a Ventimask with 4 L oxygen without the flowmeter, CTA chest shows severe emphysema with left basilar pneumonia and no pulmonary embolism. 03/11: Intermittently confused. Attempted to update family however family contact information not updated, asked RN to update. 03/12/2020; patient is currently on 2 L of oxygen. CTA was done and significant for severe emphysema with left basilar pneumonia but no PE. Patient was treated with antibiotics. Continue with Decadron and finished remdesivir. Patient is severely malnourished and dietitian is following the patient. Patient said he wants to eat and I am going to do speech therapy evaluation and if he passed swallow evaluation he can eat and we can stop the PEG tube feeding. Patient said he wants to go home discharge. Output PT evaluation. Patient is improving. 03/13/20: patient still on 2 L nasal cannula oxygen. May go home if home oxygen is arranged 03/14: At the time of examination today patient is on nasal cannula. Family contact information still not updated in the computer. Patient is medically stable for discharge. Hospitalist Physical - Constitutional Vitals: Temp Pulse Resp BP Pulse Ox 97.0 F L 87 22 124/74 99 03/15/20 12:22 03/15/20 12:22 03/15/20 12:22 03/15/20 12:22 03/15/20 12:22 General appearance: Present: no acute distress, cachectic - EENT Eyes: Present: PERRL, EOM intact ENT: hearing decreased, poor dentition - Neck Neck: Present: normal ROM - Respiratory Respiratory effort: normal Respiratory: bilateral: CTA, diminished - Cardiovascular Rhythm: regular Heart Sounds: Present: S1 & S2. Absent: systolic murmur, diastolic murmur - Extremities Extremities: no ischemia, pulses intact, pulses symmetrical, No edema, normal temperature, normal color Peripheral Pulses: within normal limits - Abdominal General gastrointestinal: soft, non-tender, non-distended, normal bowel sounds - Integumentary Integumentary: Present: warm, dry - Psychiatric Psychiatric: cooperative - Neurologic Neurologic: no CNII-XII intact, focal deficits (UE contracted) Results - Labs CBC & Chem 7: 03/12/20 04:42 03/15/20 01:08 Labs: Laboratory Last Values WBC 6.7 K/mm3 (4.5-11.0) 03/12/20 04:42 RBC 3.38 M/mm3 (3.65-5.03) L 03/12/20 04:42 Hgb 9.6 gm/dl (11.8-15.2) L 03/12/20 04:42 Hct 29.0 % (35.5-45.6) L D 03/12/20 04:42 MCV 86 fl (84-94) 03/12/20 04:42 MCH 28 pg (28-32) 03/12/20 04:42 MCHC 33 % (32-34) 03/12/20 04:42 RDW 16.9 % (13.2-15.2) H 03/12/20 04:42 Plt Count 366 K/mm3 (140-440) 03/12/20 04:42 Lymph % (Auto) 18.6 % (13.4-35.0) 03/09/20 06:03 [place] % (Auto) 5.4 % (0.0-7.3) 03/09/20 06:03 Eos % (Auto) 0.1 % (0.0-4.3) 03/09/20 06:03 Baso % (Auto) 0.1 % (0.0-1.8) 03/09/20 06:03 Lymph # (Auto) 0.8 K/mm3 (1.2-5.4) L 03/09/20 06:03 [place] # (Auto) 0.2 K/mm3 (0.0-0.8) 03/09/20 06:03 Eos # (Auto) 0.0 K/mm3 (0.0-0.4) 03/09/20 06:03 Baso # (Auto) 0.0 K/mm3 (0.0-0.1) 03/09/20 06:03 Seg Neutrophils % 75.8 % (40.0-70.0) H 03/09/20 06:03 Seg Neutrophils # 3.2 K/mm3 (1.8-7.7) 03/09/20 06:03 PT 18.9 Sec. (12.2-14.9) H 03/06/20 05:21 INR 1.58 (0.87-1.13) H 03/06/20 05:21 D-Dimer 234.66 ng/mlDDU (0-234) H 03/10/20 04:00 Sodium 133 mmol/L (137-145) L 03/15/20 01:08 Potassium 4.4 mmol/L (3.6-5.0) 03/15/20 01:08 Chloride 100.3 mmol/L (98-107) 03/15/20 01:08 Carbon Dioxide 24 mmol/L (22-30) 03/15/20 01:08 Anion Gap 13 mmol/L 03/15/20 01:08 BUN 21 mg/dL (9-20) H 03/15/20 01:08 Creatinine 0.5 mg/dL (0.8-1.3) L 03/15/20 01:08 Estimated GFR > 60 ml/min 03/15/20 01:08 BUN/Creatinine Ratio 42 % 03/15/20 01:08 Glucose 115 mg/dL (75-100) H 03/15/20 01:08 POC Glucose 88 mg/dL (70-105) 03/15/20 12:22 Lactic Acid 0.90 mmol/L (0.7-2.0) 03/05/20 06:09 Calcium 8.1 mg/dL (8.4-10.2) L 03/15/20 01:08 Magnesium 1.80 mg/dL (1.7-2.3) 03/10/20 05:16 Ferritin 1076.0 ng/mL (30.0-300.0) H 03/10/20 05:16 Total Bilirubin 0.20 mg/dL (0.1-1.2) 03/09/20 06:03 AST 53 units/L (5-40) H 03/09/20 06:03 ALT 56 units/L (7-56) 03/09/20 06:03 Alkaline Phosphatase 78 units/L (35-129) 03/09/20 06:03 Lactate Dehydrogenase 276 units/L (91-180) H 03/10/20 05:16 C-Reactive Protein 5.80 mg/dL (0.00-1.30) H 03/10/20 05:16 Total Protein 6.5 g/dL (6.3-8.2) 03/09/20 06:03 Albumin 2.2 g/dL (3.9-5) L 03/09/20 06:03 Albumin/Globulin Ratio 0.5 % 03/09/20 06:03 Procalcitonin 0.51 ng/mL (<0.15) 03/06/20 05:21 Urine Color Vicki (Yellow) 03/04/20 23:10 Urine Turbidity Slightly-cloudy (Clear) 03/04/20 23:10 Urine pH 8.0 (5.0-7.0) H 03/04/20 23:10 Ur Specific [place] 1.020 (1.003-1.030) 03/04/20 23:10 Urine Protein 100 mg/dl mg/dL (Negative) 03/04/20 23:10 Urine Glucose (UA) Neg mg/dL (Negative) 03/04/20 23:10 Urine Ketones Neg mg/dL (Negative) 03/04/20 23:10 Urine Blood Mod (Negative) 03/04/20 23:10 Urine Nitrite Neg (Negative) 03/04/20 23:10 Urine Bilirubin Neg (Negative) 03/04/20 23:10 Urine Urobilinogen 4.0 mg/dL (<2.0) 03/04/20 23:10 Ur Leukocyte Esterase Mod (Negative) 03/04/20 23:10 Urine WBC (Auto) 154.0 /HPF (0.0-6.0) H 03/04/20 23:10 Urine RBC (Auto) > 182.0 /HPF (0.0-6.0) 03/04/20 23:10 Urine Bacteria (Auto) 1+ /HPF (Negative) 03/04/20 23:10 Urine Mucus Few /HPF 03/04/20 23:10 Coronavirus (PCR) Positive (Negative) A 03/05/20 10:59 Deutsch/IV: Voiding Method Indwelling Catheter IV Catheter Type [Right Upper INT / Saline Lock arm] IV Catheter Type [Right Peripheral IV Antecubital] Active Medications - Current Medications Current Medications: Generic Name Dose Route Start Last Admin Trade Name Freq PRN Reason Stop Dose Admin Acetaminophen 650 mg 03/05/20 00:16 03/14/20 06:01 Tylenol PO 650 mg Q4H PRN Administration Pain MILD(1-3)/Fever >100.5/IBARRA Albuterol 2.5 mg 03/06/20 13:33 Proventil IH Q4HRT PRN Shortness Of Breath Lipase/Protease/Amylase 1 each 03/06/20 13:18 Connor Vallecillo 10,500 Unit FEEDTUBE PRN PRN For Clogged Feeding Tube Ascorbic Acid 500 mg 03/09/20 10:00 03/15/20 11:03 Vitamin C FEEDTUBE 500 mg DAILY TANNER Administration Atorvastatin Calcium 40 mg 03/09/20 22:00 03/14/20 22:58 Lipitor FEEDTUBE 40 mg QHS TANNER Administration Calcium Carbonate/Glycine 625 mg 03/09/20 10:00 03/15/20 11:03 Calcium Carbonate FEEDTUBE 625 mg DAILY TANNER Administration Dextrose 50 ml 03/06/20 22:08 D50w (25gm) Syringe IV Q30MIN PRN Hypoglycemia Protocol Doxazosin Mesylate 1 mg 03/09/20 22:00 03/14/20 22:59 Cardura FEEDTUBE 1 mg QHS TANNER Administration Heparin Sodium (Porcine) 5,000 unit 03/05/20 06:00 03/15/20 06:23 Heparin SUB-Q 5,000 unit Q8HR TANNER Administration Labetalol HCl 10 mg 03/09/20 06:22 03/09/20 06:46 Labetalol IV 10 mg Q6HR PRN Administration Blood Pressure Lansoprazole 30 mg 03/09/20 10:00 03/15/20 11:04 Prevacid Solutab FEEDTUBE 30 mg QDAY TANNER Administration Lisinopril 5 mg 03/09/20 10:00 03/15/20 11:01 Zestril FEEDTUBE 5 mg DAILY TANNER Administration Metoclopramide HCl 10 mg 03/05/20 00:16 Reglan IV Q6H PRN Nausea And Vomiting Metoprolol Tartrate 12.5 mg 03/09/20 10:00 03/15/20 11:01 Metoprolol FEEDTUBE 12.5 mg BID TANNER Administration Miscellaneous Medication 850 mg 03/09/20 10:00 Magnesium Oxide [Magnesium] FEEDTUBE DAILY TANNER Morphine Sulfate 2 mg 03/05/20 00:16 03/11/20 23:31 Morphine IV 2 mg Q4H PRN Administration Pain, Moderate (4-6) Simple Syrup 15 ml 03/06/20 13:18 Simple Syrup FEEDTUBE PRN PRN Hypoglycemia Simple Syrup 30 ml 03/06/20 13:18 Simple Syrup FEEDTUBE PRN PRN Hypoglycemia Sodium Bicarbonate 325 mg 03/06/20 13:18 Sodium Bicarbonate FEEDTUBE PRN PRN For Clogged Feeding Tube Sodium Chloride 10 ml 03/05/20 10:00 03/15/20 11:05 Sodium Chloride Flush Syringe 10 Ml IV 10 ml BID TANNER Administration Sodium Chloride 10 ml 03/05/20 00:16 Sodium Chloride Flush Syringe 10 Ml IV PRN PRN LINE FLUSH Sodium Hypochlorite 1 applic 03/08/20 10:00 03/15/20 11:04 Dakin's Half Strength TP 1 ml BID TANNER Administration Tramadol HCl 50 mg 03/09/20 08:27 03/14/20 22:58 Ultram FEEDTUBE 50 mg Q6HR PRN Administration Pain, Moderate (4-6) Nutrition/Malnutrition Assess - Dietary Evaluation Nutrition/Malnutrition Findings: Nutrition Notes Start: 03/05/20 09:48 Freq: Status: Active Protocol: Document 03/11/20 13:34 CW (Rec: 03/11/20 14:17 CW [email or web address]) Co-Sign 03/11/20 13:34 MK Nutrition Notes Initial or Follow up Reassessment Current Diagnosis Decubitus(Pressure Ulcer) Other Pertinent Diagnosis COVID-19, pneu, UTI, bedbound multiple PUs, hx CVA Current Diet TF, Jevity 1.2 at 55 mL/hr Labs/Tests reviewed Pertinent Medications reviewed Height 5 ft 8 in Weight 40 kg [place] Body Weight (kg) 70.00 BMI 13.4 Weight change and time frame Wt change noted. Weight Status Emaciated Subjective/Other Information FU for TF tolerance. Pt TF is running at goal rate. Per RN, pt tolerating TF. Discussed Yonathan with RN. Percent of energy/protein needs met: 100%/100% Burn Absent Trauma Absent Current % PO Negligible Minimum of two criteria Yes Interpretation of Weight Loss (severe) >2% in 1 week Body Fat Depletion Mild depletion (non-severe) Muscle Mass Mild Depletion (non-severe) Reduced Cloth Napping Supervisor Strength Measurably Reduced (severe) #2 Nutrition Diagnosis Increased nutrient needs ( specify in comment below) Diagnosis Progress(for reassessment Continues documentation) #1 Nutrition Diagnosis Malnutrition As Evidenced by Signs and Symptoms BMI 13.4 Diagnosis Progress(for reassessment Worsened documentation) Is patient on ventilator? No Is Patient Ambulatory and/or Out of Bed No REE-([place]-St. Jeor-confined to bed) 1373.544 Kcal/Kg value to use for calculation 45 Approximate Energy Requirements Using 1800 kcal/Kg Calculation Used for Recommendations Kcal/kg Additional Notes PRO needs: 51-62g (1.25-1.5 g/ kg) Fluid needs: 1 mL/kcal Nutrition Intervention Change Diet Order: Increase TF rate Nutrition Support: Jevity 1.2 at 60ml/hr Flush 100ml q4h Kcal 1,728 Protein (gm) 80 Fluid (mL) 1,162 Add Supplement/Snack (indicate name/kcal Yonathan BID via PEG /protein ) Provides kCal: 190 Provides Protein (gm) 5 Goal #1 Continued TF tolerance Goal #2 Wt gain/maintenance Goal #3 Wound healing Goal #4 Meet at least 80% of estimated energy and protein needs via TF Anticipated Discharge Needs: TF Follow-Up By: 03/15/20 Additional Comments FU for TF tolerance
[2020-03-15] MEDS: traMADol 50 MG TAB FEEDTUBE PRN (23:38)
[2020-03-15] MEDS: DOXAZOSIN 1 MG TAB FEEDTUBE SCH (23:39)
[2020-03-16] MEDS: HEPARIN 5,000 UNIT/1 ML VIAL SUB-Q SCH (05:56)
[2020-03-16] MEDS: traMADol 50 MG TAB FEEDTUBE PRN (05:56)
[2020-03-16 12:56] VITALS: BP 106/69
[2020-03-16] MEDS: LANSOPRAZOLE 30 MG SOLUTAB FEEDTUBE SCH (14:16)
[2020-03-16] MEDS: ASCORBIC ACID 500 MG TAB FEEDTUBE SCH (14:17)
[2020-03-16] MEDS: LISINOPRIL 5 MG TAB FEEDTUBE SCH (14:17)
[2020-03-16] MEDS: METOPROLOL TARTRATE 25 MG TAB FEEDTUBE SCH (14:18)
[2020-03-16] MEDS: CALCIUM CARBONATE 1250 MG/5 ML ORAL LIQD FEEDTUBE SCH (14:18)
[2020-03-16] MEDS: SODIUM HYPOCHLORITE, DAKIN'S 1/2 STRENGTH (0.25%) 473 ML TOPICAL SOLN TP SCH (14:19)
== END 2020-03-16 19:01 | DRG 871 ==
LOC: ED 20:54 → 3A 23:38 → OBSVTOIN 03-06 12:50
PROVIDERS: ADMIT Internal Medicine Geriatric Medicine; ATTEND Internal Medicine
PROC: XW033E5 Introduction of Remdesivir Anti-infective into Peripheral Vein, Percutaneous Approach, New Technology Group 5 (ICD-10-PCS; principal; 2020-03-06)
DX: A41.89 Other specified sepsis (principal); L89.154 Pressure ulcer of sacral region, stage 4; L89.213 Pressure ulcer of right hip, stage 3; L89.123 Pressure ulcer of left upper back, stage 3; U07.1 COVID-19; J12.89 Other viral pneumonia; J96.01 Acute respiratory failure with hypoxia; E43 Unspecified severe protein-calorie malnutrition; N39.0 Urinary tract infection, site not specified; E87.0 Hyperosmolality and hypernatremia; E87.1 Hypo-osmolality and hyponatremia; Z68.1 Body mass index [BMI] 19.9 or less, adult; E87.2 Acidosis; J43.9 Emphysema, unspecified; R65.20 Severe sepsis without septic shock; D72.819 Decreased white blood cell count, unspecified; E87.8 Other disorders of electrolyte and fluid balance, not elsewhere classified; R74.01 Elevation of levels of liver transaminase levels; E87.5 Hyperkalemia; D64.9 Anemia, unspecified; E86.0 Dehydration; R73.9 Hyperglycemia, unspecified; Z74.01 Bed confinement status; Z93.1 Gastrostomy status; Z86.73 Personal history of transient ischemic attack (TIA), and cerebral infarction without residual deficits
CPT/HCPCS: 36415; 71045; 71275; 78580; 80048; 80053; 81001; 82140; 82728; 82947; 82962; 83615; 83735; 84145; 85025; 85027; 85379; 85610; 86140; 87040; 93970; 94760; 96365; 96367; 96375; G0378; A6260; A9270-GY; A9540; J0456; J0696; J1100; J1644; J2270; J7030; J7040; J7050; J7070; Q9967; U0003